=== PATIENT | female | born 1950 | race Caucasian/White ===

== ENCOUNTER 2017-08-20 10:45 | Emergency (ER) | payer OTHER ==
[~2017-08-20] VITALS: Ht 162.6 cm; Wt 87.1 kg
[~2017-08-20 10:45] MED LIST: ATV/1 PO; DICY20TA35 PO
[2017-08-20 10:48] VITALS: TEMP 37.3; Ht 162.6 cm; Wt 87.1 kg
--- NOTE | 2017-08-20 11:12 | DIAGNOSTIC IMAGING REPORT ---
CHEST ONE VIEW PORTABLE CLINICAL HISTORY: EVALUATE WEAKNESS dyspnea COMPARISON STUDY: 08/28/2016 FINDINGS: The bones soft tissues and hemidiaphragms are normal. The cardiomediastinal silhouette is normal. The lungs are clear. The pulmonary vasculature is normal. IMPRESSION: Negative chest. The above report was generated using voice recognition software. It may contain grammatical, syntax or spelling errors. Electronically signed by: Nikolas Richter M.D. 08/20/2017 11:11 AM Dictated Date/Time: 08/20/2017 11:11 AM
[2017-08-20 11:32] VITALS: O2SAT 95
[2017-08-20 11:37] LABS: BASO % 0.8 %; BASO ABS # 0.06 K/uL (0-0.2); COMPLETE YES; EOS % 2.8 %; HEMATOCRIT 45.5 % (37-47); IG% 0.3 %; LYMPH % 40.6 %; LYMPH ABS # 3.01 K/uL (1.2-3.4); MEAN CELL VOLUME 97.6 fL (80-100); MEAN CORPUSCULAR HEMOGLOBIN 34.5 pg (25-34); MEAN CORPUSCULAR HGB CONC 35.4 g/dl (32-36); MEAN PLATELET VOLUME 10.9 fL (7.4-10.4); MONO % 8.5 %; PLATELET COUNT 201 K/uL (130-400); RED BLOOD COUNT 4.66 M/uL (4.2-5.4); WHITE BLOOD COUNT 7.41 K/uL (4.8-10.8)
[2017-08-20] MEDS ORDERED: GABA-113 PO (11:47)
[2017-08-20] MEDS ORDERED: SODIUM CHLORIDE 0.9% 500ML 500 ML IV STA (11:53)
[2017-08-20] MEDS ORDERED: SODIUM CHLORIDE 0.9% 1000ML 1,000 ML IV STA (11:53)
[2017-08-20] MEDS ORDERED: HYDROmorphone INJ 0.5 MG/0.5 ML SYR IV STA (11:53)
[2017-08-20 12:06] LABS: ALT/SGPT 112 U/L (12-78); BLOOD UREA NITROGEN 13 mg/dl (7-18); BUN/CREATININE RATIO 18.7 (10-20); CALCIUM 9.3 mg/dl (8.5-10.1); CARBON DIOXIDE 22 mmol/L (21-32); CHLORIDE 107 mmol/L (98-107); GLUCOSE 119 mg/dl (70-99); SODIUM 138 mmol/L (136-145)
[2017-08-20 12:16] LABS: ALKALINE PHOSPHATASE 270 U/L (45-117)
--- NOTE | 2017-08-20 12:36 | DIAGNOSTIC IMAGING REPORT ---
CT OF THE CERVICAL SPINE CLINICAL HISTORY: Neck pain status post trauma COMPARISON STUDY: 08/28/2016 CT DOSE: 501.88 mGycm TECHNIQUE: CT scan of the cervical spine was performed from the skull base to the thoracic inlet. Images are reviewed in the axial, sagittal, and coronal planes. IV contrast was not administered for this examination. A dose lowering technique was utilized adhering to the principles of ALARA. FINDINGS: The visualized portions of the lung apices reveal no evidence of pneumothorax. The prevertebral soft tissues are normal. No fractures or subluxations are visualized. There are multilevel degenerative changes. There is a reversal of the normal cervical lordosis. IMPRESSION: 1. No evidence of acute fracture or traumatic subluxation 2. Multilevel degenerative change with reversal of the normal cervical lordosis Electronically signed by: Kevon Meléndez M.D. 08/20/2017 12:34 PM Dictated Date/Time: 08/20/2017 12:32 PM
--- NOTE | 2017-08-20 12:37 | DIAGNOSTIC IMAGING REPORT ---
HEAD WITHOUT CONTRAST (CT) CT DOSE: 821.00 mGycm HISTORY: Trauma syncope, posterior impact TECHNIQUE: Multiaxial CT images of the head were performed without the use of intravenous contrast. A dose lowering technique was utilized adhering to the principles of ALARA. Comparison: 08/28/2016 Findings: The paranasal sinuses and mastoid air cells are clear. The calvarium and skull base are intact. The ventricles and sulci are within normal limits. There is no mass, hematoma, midline shift, or acute infarct. Impression: No acute intracranial abnormality. No change from the prior study. The above report was generated using voice recognition software. It may contain grammatical, syntax or spelling errors. Electronically signed by: Nikolas Richter M.D. 08/20/2017 12:35 PM Dictated Date/Time: 08/20/2017 12:33 PM
--- NOTE | 2017-08-20 12:42 | DIAGNOSTIC IMAGING REPORT ---
LUMBAR SPINE WITHOUT HISTORY: 67 years-old Female fall low back pain acute low back pain status post fall. COMPARISON: CT lumbar spine 03/09/2011 TECHNIQUE: Pole axial CT images of the lumbar spine were obtained without contrast. A dose lowering technique was used consistent with the principals of KYLE. FINDINGS: There is evidence of prior posterior decompression with interbody justino and screw fusion and discectomy at L3-S1. 9 mm anterolisthesis L5 on S1 is new from prior study. The hardware appears intact. Fracture of the left transverse process of L3 is also new from prior study and appears acute to subacute as seen on image 131 of series 2. No sacral fracture identified. Degenerative changes involve the bilateral SI joints. Slight anterior compression of less than 20% involving the T12 vertebral body is also new from prior without associated retropulsion. This appears chronic in nature. The remaining vertebral body heights are generally well maintained with multiple Schmorl's nodes and severe discogenic degeneration. Posterior disc aspect complexes seen at L2-L3 causing moderate central canal narrowing. 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 Colonic diverticulosis noted without diverticulitis. IMPRESSION: 1. Nondisplaced fracture of the left transverse process L3 appears acute to subacute in nature. 2. Slight anterior compression of the T12 vertebral body of less than 20% without associated retropulsion is new from 03/09/2011 study, however appears chronic. No definite acute compression deformity identified. 3. Prior posterior decompression with interbody fusion and discectomy at L4-S1. There is 9 mm anterolisthesis L5 on S1 without evidence of hardware complication. 4. Advanced multilevel discogenic degenerative changes with large posterior disc osteophyte complex at L2-L3 causing moderate central canal narrowing. The above report was generated using voice recognition software. It may contain grammatical, syntax or spelling errors. Electronically signed by: Andrew Raman M.D. 08/20/2017 12:41 PM Dictated Date/Time: 08/20/2017 12:32 PM
[2017-08-20 13:26] LABS: INR 1.1 (0.9-1.1); PARTIAL THROMBOPLASTIN RATIO 1.1; POTASSIUM 4.1 mmol/L (3.5-5.1); PROTHROMBIN TIME (PATIENT) 11.4 SECONDS (9.0-12.0)
[2017-08-20 13:31] LABS: MAGNESIUM 2.2 mg/dl (1.8-2.4)
[2017-08-20 13:55] LABS: MANUAL MICROSCOPIC REQUIRED? NO; REVIEW REQ? NO; URINE APPEARANCE CLEAR (CLEAR); URINE BILIRUBIN NEG (NEG); URINE COLOR YELLOW; URINE NITRITE NEG (NEG); URINE SPECIFIC GRAVITY 1.009 (1.000-1.030); UROBILINOGEN NEG (NEG)
[2017-08-20] MEDS ORDERED: OXYC1TAB3 PO (14:22)
[2017-08-20 14:59] VITALS: BP 154/86; PULSE 86; O2SAT 95
--- NOTE | 2017-08-20 15:50 | EMERGENCY ROOM VISIT NOTE ---
History Report prepared by Vern: Bin Singh Under the Supervision of: Dr. Alexandre Stallings M.D. First contact with patient: 10:53 Chief Complaint: FALL Stated Complaint: FELL History of Present Illness The patient is a 67 year old female who presents to the Emergency Room with complaints of a sudden fall occurring prior to arrival. She currently rates her discomfort as an 8/10 in severity. The patient states that she went to the bathroom, and she started to get dizzy and passed out. She states that she fell and hit her head, and she denies any bleeding. She states that she has had dizzy episodes in the past, though this is the first time that she passed out. The patient additionally states that last week she fell and hit her back and her knee, and she has been having chronic back pain. The patient states that she has a history of panic attacks, during which she has chest heaviness, cough , and shortness of breath. Pt denies headache, fevers, chills, diaphoresis, visual changes, neck pain, chest pain, breathing difficulties, nausea, vomiting , abdominal pain, melena, hematochezia, urinary symptoms, numbness, weakness, lymphadenopathy, rash, or other complaints. Source of History: patient Onset: prior to arrival Position: other (global) Quality: other (fall) Timing: other (sudden) Associated Symptoms: + LOC, + back pain Note: Associated symptoms: Dizziness Review of Systems See HPI for pertinent positives and negatives. A total of ten systems were reviewed and were otherwise negative. Past Medical & Surgical Medical Problems: (1) Anxiety disorder (2) Arthroplasty of knee (3) Back surgery (4) Benign hypertension (5) Depressive disorder (6) Fibromyalgia (7) Gastroesophageal reflux disease (8) Osteoarthritis (9) Pneumonia Social History Problems: (1) Hepatitis C Family History No pertinent family history Social History Smoking Status: Current Every Day Smoker Alcohol Use: occasionally Marital Status: Housing Status: lives with significant other Occupation Status: unemployed Current/Historical Medications Scheduled Gabapentin (Neurontin), 300 MG PO QAM Scheduled PRN Oxycodone Ir (Roxicodone Ir), 1-2 TAB PO Q4H PRN for Pain Allergies Coded Allergies: Rofecoxib (Verified Allergy, Intermediate, HIVES, 08/20/17) Aspirin (Verified Adverse Reaction, Mild, AGITATED AND SWEATY, 08/20/17) Celecoxib (Verified Adverse Reaction, Mild, HEAD PAIN, 08/20/17) Physical Exam Vital Signs Date Time Temp Pulse Resp B/P (MAP) Pulse Ox O2 Delivery O2 Flow Rate FiO2 08/20/17 14:59 86 18 154/86 95 08/20/17 13:08 68 18 171/77 97 Room Air 08/20/17 11:36 88 08/20/17 11:32 95 Room Air 08/20/17 10:48 37.3 105 20 159/48 98 Room Air Physical Exam GENERAL: Awake, alert, uncomfortable-appearing, in no distress HENT: Normocephalic, atraumatic. Oropharynx unremarkable. EYES: Normal conjunctiva. Sclera non-icteric. NECK: Supple. No nuchal rigidity. FROM. No JVD. RESPIRATORY: Clear to auscultation. CARDIAC: Regular rate, normal rhythm. Extremities warm and well perfused. Pulses equal. ABDOMEN: Soft, non-distended. No tenderness to palpation. No rebound or guarding. No masses. RECTAL: Deferred. MUSCULOSKELETAL: Chest examination reveals no tenderness. The back is symmetrical on inspection without obvious abnormality. There is no CVA tenderness to palpation. No joint edema. LOWER EXTREMITIES: Atraumatic. Calves are equal size bilaterally and non- tender. No edema. No discoloration. NEURO: Normal sensorium. No sensory or motor deficits noted. SKIN: No rash or jaundice noted. Medical Decision & Procedures ER Provider Diagnostic Interpretation: Radiology results as stated below per my review and radiologist interpretation: CHEST ONE VIEW PORTABLE CLINICAL HISTORY: EVALUATE WEAKNESS dyspnea COMPARISON STUDY: 08/28/2016 FINDINGS: The bones soft tissues and hemidiaphragms are normal. The cardiomediastinal silhouette is normal. The lungs are clear. The pulmonary vasculature is normal. IMPRESSION: Negative chest. The above report was generated using voice recognition software. It may contain grammatical, syntax or spelling errors. Electronically signed by: Nikolas Richter M.D. 08/20/2017 11:11 AM Dictated Date/Time: 08/20/2017 11:11 AM HEAD WITHOUT CONTRAST (CT) CT DOSE: 821.00 mGycm HISTORY: Trauma syncope, posterior impact TECHNIQUE: Multiaxial CT images of the head were performed without the use of intravenous contrast. A dose lowering technique was utilized adhering to the principles of ALARA. Comparison: 08/28/2016 Findings: The paranasal sinuses and mastoid air cells are clear. The calvarium and skull base are intact. The ventricles and sulci are within normal limits. There is no mass, hematoma, midline shift, or acute infarct. Impression: No acute intracranial abnormality. No change from the prior study. The above report was generated using voice recognition software. It may contain grammatical, syntax or spelling errors. Electronically signed by: Nikolas Richter M.D. 08/20/2017 12:35 PM Dictated Date/Time: 08/20/2017 12:[address] OF THE CERVICAL SPINE CLINICAL HISTORY: Neck pain status post trauma COMPARISON STUDY: 08/28/2016 CT DOSE: 501.88 mGycm TECHNIQUE: CT scan of the cervical spine was performed from the skull base to the thoracic inlet. Images are reviewed in the axial, sagittal, and coronal planes. IV contrast was not administered for this examination. A dose lowering technique was utilized adhering to the principles of ALARA. FINDINGS: The visualized portions of the lung apices reveal no evidence of pneumothorax. The prevertebral soft tissues are normal. No fractures or subluxations are visualized. There are multilevel degenerative changes. There is a reversal of the normal cervical lordosis. IMPRESSION: 1. No evidence of acute fracture or traumatic subluxation 2. Multilevel degenerative change with reversal of the normal cervical lordosis Electronically signed by: Kevon Meléndez M.D. 08/20/2017 12:34 PM Dictated Date/Time: 08/20/2017 12:32 PM LUMBAR SPINE WITHOUT HISTORY: 67 years-old Female fall low back pain acute low back pain status post fall. COMPARISON: CT lumbar spine 03/09/2011 TECHNIQUE: Pole axial CT images of the lumbar spine were obtained without contrast. A dose lowering technique was used consistent with the principals of ALARA. FINDINGS: There is evidence of prior posterior decompression with interbody justino and screw fusion and discectomy at L3-S1. 9 mm anterolisthesis L5 on S1 is new from prior study. The hardware appears intact. Fracture of the left transverse process of L3 is also new from prior study and appears acute to subacute as seen on image 131 of series 2. No sacral fracture identified. Degenerative changes involve the bilateral SI joints. Slight anterior compression of less than 20% involving the T12 vertebral body is also new from prior without associated retropulsion. This appears chronic in nature. The remaining vertebral body heights are generally well maintained with multiple Schmorl's nodes and severe discogenic degeneration. Posterior disc aspect complexes seen at L2-L3 causing moderate central canal narrowing. 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 Colonic diverticulosis noted without diverticulitis. IMPRESSION: 1. Nondisplaced fracture of the left transverse process L3 appears acute to subacute in nature. 2. Slight anterior compression of the T12 vertebral body of less than 20% without associated retropulsion is new from 03/09/2011 study, however appears chronic. No definite acute compression deformity identified. 3. Prior posterior decompression with interbody fusion and discectomy at L4-S1. There is 9 mm anterolisthesis L5 on S1 without evidence of hardware complication. 4. Advanced multilevel discogenic degenerative changes with large posterior disc osteophyte complex at L2-L3 causing moderate central canal narrowing. The above report was generated using voice recognition software. It may contain grammatical, syntax or spelling errors. Electronically signed by: Andrew Raman M.D. 08/20/2017 12:41 PM Dictated Date/Time: 08/20/2017 12:32 PM Laboratory Results 08/20/17 11:15 Red Blood Count 4.66, Mean Corpuscular Volume 97.6, Mean Corpuscular Hemoglobin 34.5, Mean Corpuscular Hemoglobin Concent 35.4, Mean Platelet Volume 10.9, Neutrophils (%) (Auto) 47.0, Lymphocytes (%) (Auto) 40.6, Monocytes (%) (Auto) 8.5, Eosinophils (%) (Auto) 2.8, Basophils (%) (Auto) 0.8, Neutrophils # (Auto) 3.48, Lymphocytes # (Auto) 3.01, Monocytes # (Auto) 0.63, Eosinophils # (Auto) 0.21, Basophils # (Auto) 0.06 08/20/17 11:15 08/20/17 12:58 Test 08/20/17 11:15 08/20/17 12:58 08/20/17 13:28 White Blood Count 7.41 K/uL (4.8-10.8) Red Blood Count 4.66 M/uL (4.2-5.4) Hemoglobin 16.1 g/dL (12.0-16.0) Hematocrit 45.5 % (37-47) Mean Corpuscular Volume 97.6 fL (80-100) Mean Corpuscular Hemoglobin 34.5 pg (25-34) Mean Corpuscular Hemoglobin Concent 35.4 g/dl (32-36) Platelet Count 201 K/uL (130-400) Mean Platelet Volume 10.9 fL (7.4-10.4) Neutrophils (%) (Auto) 47.0 % Lymphocytes (%) (Auto) 40.6 % Monocytes (%) (Auto) 8.5 % Eosinophils (%) (Auto) 2.8 % Basophils (%) (Auto) 0.8 % Neutrophils # (Auto) 3.48 K/uL (1.4-6.5) Lymphocytes # (Auto) 3.01 K/uL (1.2-3.4) Monocytes # (Auto) 0.63 K/uL (0.11-0.59) Eosinophils # (Auto) 0.21 K/uL (0-0.5) Basophils # (Auto) 0.06 K/uL (0-0.2) RDW Standard Deviation 46.0 fL (36.4-46.3) RDW Coefficient of Variation 13.1 % (11.5-14.5) Immature Granulocyte % (Auto) 0.3 % Immature Granulocyte # (Auto) 0.02 K/uL (0.00-0.02) Anion Gap 9.0 mmol/L (3-11) Est Creatinine Clear Calc Drug Dose 83.3 ml/min Estimated GFR () 103.9 Estimated GFR (Non- 89.7 BUN/Creatinine Ratio 18.7 (10-20) Calcium Level 9.3 mg/dl (8.5-10.1) Total Bilirubin 0.7 mg/dl (0.2-1) Alanine Aminotransferase (ALT/SGPT) 112 U/L (12-78) Alkaline Phosphatase 270 U/L (45-117) Creatine Kinase MB 0.7 ng/ml (0.5-3.6) Creatine Kinase MB Ratio (0-3.0) Troponin I < 0.015 ng/ml (0-0.045) Total Protein 8.2 gm/dl (6.4-8.2) Albumin 3.5 gm/dl (3.4-5.0) Lipase 128 U/L (73-393) Thyroid Stimulating Hormone (TSH) 1.370 uIu/ml (0.300-4.500) Prothrombin Time 11.4 SECONDS (9.0-12.0) Prothromb Time International Ratio 1.1 (0.9-1.1) Activated Partial Thromboplast Time 27.5 SECONDS (21.0-31.0) Partial Thromboplastin Ratio 1.1 Magnesium Level 2.2 mg/dl (1.8-2.4) Direct Bilirubin 0.3 mg/dl (0-0.2) Aspartate Amino Transf (AST/SGOT) 88 U/L (15-37) Total Creatine Kinase 43 U/L (26-192) Urine Color YELLOW Urine Appearance CLEAR (CLEAR) Urine pH 6.0 (4.5-7.5) Urine Specific [place] 1.009 (1.000-1.030) Urine Protein NEG (NEG) Urine Glucose (UA) NEG (NEG) Urine Ketones NEG (NEG) Urine Occult Blood NEG (NEG) Urine Nitrite NEG (NEG) Urine Bilirubin NEG (NEG) Urine Urobilinogen NEG (NEG) Urine Leukocyte Esterase TRACE (NEG) Urine WBC (Auto) 1-5 /hpf (0-5) Urine RBC (Auto) 0-4 /hpf (0-4) Urine Hyaline Casts (Auto) 0 /lpf (0-5) Urine Epithelial Cells (Auto) 10-20 /lpf (0-5) Urine Bacteria (Auto) NEG (NEG) Laboratory results reviewed by me Medications Administered Medications (Trade) Dose Ordered Sig/Annel Route Start Time Stop Time Status Last Admin Dose Admin Hydromorphone HCl (Dilaudid Inj) 0.5 mg NOW STAT IV 08/20/17 11:53 08/20/17 11:55 DC 08/20/17 12:06 0.5 MG Sodium Chloride 500 ml @ 999 mls/hr Q31M STAT IV 08/20/17 11:53 08/20/17 12:23 DC 08/20/17 12:05 999 MLS/HR Sodium Chloride 1,000 ml @ 125 mls/hr Q8H STAT IV 08/20/17 11:53 08/20/17 15:16 DC 08/20/17 13:26 125 MLS/HR ECG Indication: back/shoulder pain, other (fall) Rate (beats per minute): 91 Rhythm: normal sinus Findings: no acute ischemic change, no ectopy, other (normal intervals) ED Course 1144: The patient was evaluated in room C7. A complete history and physical exam was performed. 1153: Sodium Chloride 1000 ml @ 125 mls/hr IV, Sodium Chloride 500 ml @ 999 mls/ hr IV, Dilaudid Inj 0.5mg IV 1337: I reevaluated the patient, and she was doing okay. 1431: I discussed the patient's case with Mikey An PA-C, Orthopedics, and he will follow up with the patient in the office tomorrow. 1433: I reevaluated the patient. Discussed results and discharge instructions: She verbalized understanding and agreement and will follow up. The patient is ready for discharge. Medical Decision Triage Nursing notes reviewed. The patient's presentation and history were concerning for syncope, back and neck pain. Etiologies such as vasovagal event, infection, hypoglycemia, electrolyte abnormalities, cardiac sources, intracerebral event, toxicologic, neurologic, fracture, musculoskeletal injury, cervical strain, as well as others were entertained. The patient was evaluated. Neurologically she was intact. She had a benign belly. GCS was 15. The patient had some neck discomfort. She underwent CT imaging of her head, neck, and lumbar spine. She does not have a transverse process fracture of the lumbar spine. Questionable subacute to old T12 compression. The patient's blood work was unremarkable. LFTs actually improved. She was treated with hydration and pain medication as above and then much better. She was feeling well. I discussed conservative management and following up with her spine surgeon. The patient felt comfortable with this. She will also follow-up with her primary physician. I did notify her spine team. I spoke with Bin An PA-C, associate of Dr. Silva. The patient will follow up in the office. The patient notes that she's been under a lot of stress and has had issues in the past with lightheadedness and seemed to be, especially when she changes positions. states that she has been stressed recently. She feels much better at this point in time. No further symptoms. By the evaluation outlined above other emergent etiologies such as those listed in the differential, as well as others, were deemed relatively unlikely. The patient and were educated about the findings as listed above. All questions were answered and they were pleased with the treatment. Return instructions were outlined and the patient was discharged in stable condition. The patient was referred to her spine surgeon and PCP for follow-up for a recheck of the current condition. [place] Drug Monitoring Program Search Results: patient reviewed within database, no issues identified Medication Reconcilliation Current Medication List: was personally reviewed by me Blood Pressure Screening Patient's blood pressure: Elevated blood pressure Blood pressure disposition: Referred to PCP Consults Time Called: 1346 Consulting Physician: Mikey An PA-C, Orthopedics Returned Call: [phone] I discussed the patient's case with Mikey An PA-C, Orthopedics, and he will follow up with the patient in the office tomorrow. Impression Primary Impression: Syncope Additional Impressions: Closed head injury Lumbar transverse process fracture Scribe Attestation The scribe's documentation has been prepared under my direction and personally reviewed by me in its entirety. I confirm that the note above accurately reflects all work, treatment, procedures, and medical decision making performed by me. Departure Information Dispostion Home / Self-Care Prescriptions Oxycodone Ir (Roxicodone Ir) 5 Mg Tab 1-2 TAB PO Q4H Y for Pain, #15 TAB Prov: Alexandre Stallings MD 08/20/17 Referrals RV. Garcia MD (PCP) Forms HOME CARE DOCUMENTATION FORM, IMPORTANT VISIT INFORMATION Patient Instructions My [facility] Additional Instructions DO NOT drive, drink alcohol, operate machinery, or perform dangerous activities today. You were given medications in the ER that can affect your ability to safely function or operate a vehicle. Oxycodone (OxyIR) 5mg: Take 1-2 pills every four hours for breakthrough pain. Avoid alcohol, operating machinery or dangerous equipment, working on ladders or roofs, DRIVING, or situations where being under the influence may be dangerous. It is recommended to use an [id number] stool softener such as Colace, 100mg twice daily while taking this medication to avoid constipation. Rest and avoid heavy lifting until your symptoms resolve and then gradually return to full activity. A good rule of thumb is if it hurts your back to perform a certain activity, then it should be avoided until you are healthy again. A heating pad, warm compresses, or a hot shower may help with tight muscles and can be done several times a day as needed. Continue current medications. Return to the ER immediately for any passing out, numbness, tingling, severe pain, loss of control of your bowels or bladder, inability to walk, or as needed. Follow-up with Dr. Silva's office. Call them tomorrow to set an appointment. Follow up with your primary care physician within 2-3 days for a recheck of your current condition. Problem Qualifiers
== END 2017-08-20 15:01 | disposition home or self-care (01) ==
LOC: C.EDB 10:46 → C.EDC 15:01
DX: R55 Syncope and collapse (principal); S09.90XA Unspecified injury of head, initial encounter; S32.039A Unspecified fracture of third lumbar vertebra, initial encounter for closed fracture; W01.10XA Fall on same level from slipping, tripping and stumbling with subsequent striking against unspecified object, initial encounter; Y92.002 Bathroom of unspecified non-institutional (private) residence as the place of occurrence of the external cause; G89.29 Other chronic pain; M54.9 Dorsalgia, unspecified; F41.0 Panic disorder [episodic paroxysmal anxiety]; Z96.659 Presence of unspecified artificial knee joint; I10 Essential (primary) hypertension; F32.9 Major depressive disorder, single episode, unspecified; M79.7 Fibromyalgia; M19.90 Unspecified osteoarthritis, unspecified site; Z87.01 Personal history of pneumonia (recurrent); B19.20 Unspecified viral hepatitis C without hepatic coma; F17.210 Nicotine dependence, cigarettes, uncomplicated; Z79.899 Other long term (current) drug therapy

== ENCOUNTER 2017-11-14 11:39 | Inpatient (IN) | payer OTHER ==
[~2017-11-14] VITALS: Ht 160 cm; Wt 86.1 kg
[2017-11-14] MEDS ORDERED: ALBUT/IPRATROP 3MG/0.5MG NEB 3 ML VIAL INH STA (12:04)
[2017-11-14] MEDS ORDERED: MoRPHine SULFATE 4 MG/ML 1 ML CARP\\VIAL IV STA (12:07)
[2017-11-14] MEDS ORDERED: IBUP-1450 PO (12:27)
--- NOTE | 2017-11-14 12:36 | EMERGENCY ROOM VISIT NOTE ---
History First contact with patient: 11:55 Chief Complaint: ILLNESS Stated Complaint: FLU LIKE SX History of Present Illness The patient is a 67 year old female who presents to the Emergency Room with complaints of flu-like illness, with SOB/wheezing, dry nonproductive cough, chest tightness, and overall feeling ill for the past week or more. She was being seen at pain clinic today for a possible epidural injection for her chronic back pain, was found to be hypertensive and short of breath, so was sent to the ED for further evaluation. The patient states her back pain is constant and 7/10. Her chest pain is also constant for the past week, in the middle of her chest, she describes this as tightness, does not radiate, nothing makes it better or worse, 5/10. She reports some associated chills, unsure if she has had any fevers. She does note some loose stools off and on over the past week or so as well, denies watery, bloody, or frequent diarrhea. She denies headaches, vision changes, neck pain, dizziness or passing out, falls, abdominal pain, vomiting, urinary symptoms, or rash. Review of Systems A complete 10 point review of systems was reviewed with the patient with pertinent positives and negatives as per history of present illness. All else were negative. Past Medical/Surgical History Medical Problems: (1) Anxiety disorder (2) Arthroplasty of knee (3) Back surgery (4) Benign hypertension (5) Depressive disorder (6) Fibromyalgia (7) Gastroesophageal reflux disease (8) Hypertensive urgency (9) Osteoarthritis (10) Pneumonia Social History Problems: (1) Hepatitis C Family History No pertinent family history Social History Smoking Status: Current Every Day Smoker Alcohol Use: occasionally Marital Status: Housing Status: lives with significant other Occupation Status: unemployed Current/Historical Medications Scheduled PRN Ibuprofen (Motrin), 600 MG PO Q6H PRN for Pain Allergies Reviewed in chart Physical Exam Vital Signs Date Time Temp Pulse Resp B/P (MAP) Pulse Ox O2 Delivery O2 Flow Rate FiO2 11/14/17 14:29 83 192/91 92 Room Air 11/14/17 12:57 85 19 223/108 92 Room Air 11/14/17 12:27 95 Room Air 11/14/17 12:26 81 11/14/17 11:56 95 Room Air 11/14/17 11:54 36.5 84 23 186/93 95 Room Air Physical Exam CONSTITUTIONAL: Pleasant and cooperative. Speaking in full sentences without distress. HEENT: Normocephalic, atraumatic. Pupils equal, round and reactive to light, EOMI. TMs normal. Pharynx normal. NECK: Supple, full active range of motion without discomfort. RESPIRATORY: Mildly tachypneic, but no use of accessory muscles or labored breathing. Scant expiratory wheezes heard throughout, clearing with cough. Bibasilar fine crackles. No stridor. Equal expansion bilaterally. CARDIOVASCULAR: Regular rate and rhythm with no murmurs, rubs or gallops. Normal peripheral perfusion. No edema. GASTROINTESTINAL: Soft, nontender, nondistended. No palpable masses or HSM. Bowel sounds present in all quadrants. MUSCULOSKELETAL: Full range of motion of all joints without discomfort. INTEGUMENTARY: No rash or other significant dermatologic conditions noted. NEUROLOGIC: Alert and oriented X 4 with normal affect. Cranial nerves II-XII grossly intact. No focal neurologic deficits noted. Normal strength and sensation in all four extremities. Normal speech, normal coordination, finger- nose-finger testing normal. Medical Decision & Procedures ER Provider Diagnostic Interpretation: CHEST 2 VIEWS ROUTINE CLINICAL HISTORY: Respiratory distress. Dyspnea. COMPARISON STUDY: Chest radiograph August 20, 2017. FINDINGS: Lung volumes are normal. No pneumothorax or pleural effusion is present. Minimal left basilar opacity likely reflects atelectasis or epicardial fat pad. Cardiomediastinal silhouette is normal. There is no evidence of pulmonary edema. Lateral view demonstrates an old compression deformity at the thoracolumbar junction. IMPRESSION: No acute cardiopulmonary findings. Laboratory Results 11/14/17 13:00 Red Blood Count 4.53, Mean Corpuscular Volume 98.0, Mean Corpuscular Hemoglobin 33.3, Mean Corpuscular Hemoglobin Concent 34.0, Mean Platelet Volume 10.5, Neutrophils (%) (Auto) 55.6, Lymphocytes (%) (Auto) 31.8, Monocytes (%) (Auto) 9.9, Eosinophils (%) (Auto) 1.8, Basophils (%) (Auto) 0.5, Neutrophils # (Auto) 4.20, Lymphocytes # (Auto) 2.41, Monocytes # (Auto) 0.75, Eosinophils # (Auto) 0.14, Basophils # (Auto) 0.04 11/14/17 13:00 Test 11/14/17 12:20 11/14/17 13:00 11/14/17 13:30 Influenza Type A (RT-PCR) Neg for Influ A (NEG) Influenza Type A Antigen Neg for Influ A (NEG) Influenza Type B Antigen Neg for Influ B (NEG) Influenza Type B (RT-PCR) Neg for Influ B (NEG) White Blood Count 7.57 K/uL (4.8-10.8) Red Blood Count 4.53 M/uL (4.2-5.4) Hemoglobin 15.1 g/dL (12.0-16.0) Hematocrit 44.4 % (37-47) Mean Corpuscular Volume 98.0 fL (80-100) Mean Corpuscular Hemoglobin 33.3 pg (25-34) Mean Corpuscular Hemoglobin Concent 34.0 g/dl (32-36) Platelet Count 159 K/uL (130-400) Mean Platelet Volume 10.5 fL (7.4-10.4) Neutrophils (%) (Auto) 55.6 % Lymphocytes (%) (Auto) 31.8 % Monocytes (%) (Auto) 9.9 % Eosinophils (%) (Auto) 1.8 % Basophils (%) (Auto) 0.5 % Neutrophils # (Auto) 4.20 K/uL (1.4-6.5) Lymphocytes # (Auto) 2.41 K/uL (1.2-3.4) Monocytes # (Auto) 0.75 K/uL (0.11-0.59) Eosinophils # (Auto) 0.14 K/uL (0-0.5) Basophils # (Auto) 0.04 K/uL (0-0.2) RDW Standard Deviation 47.5 fL (36.4-46.3) RDW Coefficient of Variation 13.3 % (11.5-14.5) Immature Granulocyte % (Auto) 0.4 % Immature Granulocyte # (Auto) 0.03 K/uL (0.00-0.02) Anion Gap 4.0 mmol/L (3-11) Est Creatinine Clear Calc Drug Dose 83.6 ml/min Estimated GFR () 105.4 Estimated GFR (Non- 91.0 BUN/Creatinine Ratio 15.7 (10-20) Calcium Level 9.3 mg/dl (8.5-10.1) Total Bilirubin 0.8 mg/dl (0.2-1) Aspartate Amino Transf (AST/SGOT) 158 U/L (15-37) Alanine Aminotransferase (ALT/SGPT) 155 U/L (12-78) Alkaline Phosphatase 230 U/L (45-117) Troponin I < 0.015 ng/ml (0-0.045) Pro-B-Type Natriuretic Peptide 215 pg/ml (0-900) Total Protein 8.4 gm/dl (6.4-8.2) Albumin 3.5 gm/dl (3.4-5.0) Globulin 4.9 gm/dl (2.5-4.0) Albumin/Globulin Ratio 0.7 (0.9-2) Urine Color YELLOW Urine Appearance CLEAR (CLEAR) Urine pH 6.5 (4.5-7.5) Urine Specific [place] 1.018 (1.000-1.030) Urine Protein NEG (NEG) Urine Glucose (UA) NEG (NEG) Urine Ketones TRACE (NEG) Urine Occult Blood NEG (NEG) Urine Nitrite NEG (NEG) Urine Bilirubin NEG (NEG) Urine Urobilinogen NEG (NEG) Urine Leukocyte Esterase SMALL (NEG) Urine WBC (Auto) 1-5 /hpf (0-5) Urine RBC (Auto) 0-4 /hpf (0-4) Urine Hyaline Casts (Auto) 1-5 /lpf (0-5) Urine Epithelial Cells (Auto) >30 /lpf (0-5) Urine Bacteria (Auto) NEG (NEG) Medications Administered Medications (Trade) Dose Ordered Sig/Annel Route Start Time Stop Time Status Last Admin Dose Admin Albuterol/ Ipratropium (Duoneb) 3 ml NOW STAT INH 11/14/17 12:04 11/14/17 12:07 DC 11/14/17 12:29 3 ML Morphine Sulfate (MoRPHine SULFATE INJ) 4 mg NOW STAT IV 11/14/17 12:07 11/14/17 12:09 DC 11/14/17 12:29 4 MG ECG Indication: chest pain, SOB/dyspnea Rate (beats per minute): 77 Rhythm: normal sinus Findings: no acute ischemic change, no ectopy Change: no significant change (when compared to EKG from 08/20/2017) Medical Decision CC: Patient presenting with complaint of flulike symptoms, cough, congestion, shortness of breath, chest tightness Interpretation of Labs: No leukocytosis, no anemia, no significant electrolyte abnormalities, normal renal function, diffuse elevation of liver enzymes ( chronically elevated at baseline). Negative troponin, negative pro-BNP. Differential Diagnosis: Includes, but not limited to viral URI, bronchitis, pneumonia, influenza, pulmonary edema, pleural effusion, ACS, CHF, COPD exacerbation, PE, anxiety, hypertensive urgency/emergency, among others. She Medication Reconciliation: I attest that I have personally reviewed the patient' s current medication list. Vital signs review: I reviewed the patient's vital signs and interpret them as follows: T: Afebrile; BP: Hypertensive; HR: Within normal limits; RR: Tachypneic; Pulse Ox: Within normal limits on room air. Blood pressure screening: The patient was found to have an elevated blood pressure and was referred to the inpatient team for further management and treatment. Summary: Patient was evaluated at bedside, history and physical exam performed. Patient is alert and oriented, no acute distress but appears uncomfortable. She is resting calmly in the stretcher. Patient is noted to be quite hypertensive, she denies any past history of this and does not take any antihypertensive medication. She states her chronic back pain is really bothering her and is requesting something for this, will treat with morphine and reassess BP for improvement. Orders were placed at bedside for labs, UA, DuNeb treatment, morphine for pain, EKG, CXR to evaluate for cardiopulmonary disease. Patient discussed with Dr. Bowles, who agrees with my assessment and plan. Labs reviewed as above, no acute abnormalities. Negative troponin. EKG reviewed and shows normal sinus rhythm with no acute ischemic changes. Chest x-ray reviewed, no evidence of pneumonia or other acute abnormalities. Subsequent reassessment of blood pressure shows increasing hypertension, and the patient continues to complain of chest pain and shortness of breath. Dr. Bowles also evaluated the patient, who describes her chest pain to him as exertional in nature and radiating to the arm. Nitroglycerin ordered for chest pain and management of hypertension, aspirin not given due to allergy. Given the persistent severe hypertension with symptoms of chest pain/SOB, we feel the patient should be admitted for further evaluation. I spoke with the hospitalist service, who agree to evaluate the patient for admission. Patient reassessed multiple times throughout ED stay, her pain and shortness of breath are somewhat improving. She does remain quite hypertensive. The patient and her were updated on plan for admission, they were agreeable to this plan. Patient stable at time of admission. Head Trauma GCS Score: 15 Medication Reconcilliation Current Medication List: was personally reviewed by me Blood Pressure Screening Patient's blood pressure: Elevated blood pressure Impression Primary Impression: Hypertensive urgency Additional Impression: Shortness of breath Departure Information Dispostion Admitted as an inpatient Condition FAIR Referrals RV. Garcia MD (PCP) Patient Instructions My [facility] Health Problem Qualifiers
[2017-11-14 13:24] LABS: BASO % 0.5 %; BASO ABS # 0.04 K/uL (0-0.2); COMPLETE YES; EOS % 1.8 %; HEMATOCRIT 44.4 % (37-47); IG% 0.4 %; LYMPH % 31.8 %; LYMPH ABS # 2.41 K/uL (1.2-3.4); MEAN CORPUSCULAR HEMOGLOBIN 33.3 pg (25-34); MEAN PLATELET VOLUME 10.5 fL (7.4-10.4); MONO % 9.9 %; NEUT % 55.6 %; PLATELET COUNT 159 K/uL (130-400); RED BLOOD COUNT 4.53 M/uL (4.2-5.4); WHITE BLOOD COUNT 7.57 K/uL (4.8-10.8)
--- NOTE | 2017-11-14 13:29 | EMERGENCY ROOM VISIT NOTE ---
ED Visit Note First contact with patient: 11:55 Staff note: I have reviewed the Patients chart and have discussed this case with my PA. I generally agree with the ED note and findings.
[2017-11-14 13:33] LABS: INFLUENZA A PCR Neg for Influ A (NEG); INFLUENZA B PCR Neg for Influ B (NEG)
[2017-11-14 13:44] LABS: ALT/SGPT 155 U/L (12-78); AST/SGOT 158 U/L (15-37); BLOOD UREA NITROGEN 11 mg/dl (7-18); BUN/CREATININE RATIO 15.7 (10-20); CALCIUM 9.3 mg/dl (8.5-10.1); CARBON DIOXIDE 28 mmol/L (21-32); CHLORIDE 102 mmol/L (98-107); CREATININE 0.67 mg/dl (0.60-1.20); GLUCOSE 118 mg/dl (70-99); POTASSIUM 4.2 mmol/L (3.5-5.1); SODIUM 134 mmol/L (136-145)
[2017-11-14 13:49] LABS: ALB/GLOB RATIO 0.7 (0.9-2); ALKALINE PHOSPHATASE 230 U/L (45-117)
[2017-11-14 13:55] LABS: URINE APPEARANCE CLEAR (CLEAR); URINE BILIRUBIN NEG (NEG); URINE COLOR YELLOW; URINE EPITHELIAL CELL AUTO >30 /lpf (0-5); URINE NITRITE NEG (NEG); URINE PH 6.5 (4.5-7.5); URINE SPECIFIC GRAVITY 1.018 (1.000-1.030); UROBILINOGEN NEG (NEG)
--- NOTE | 2017-11-14 14:04 | DIAGNOSTIC IMAGING REPORT ---
CHEST 2 VIEWS ROUTINE CLINICAL HISTORY: Respiratory distress. Dyspnea. COMPARISON STUDY: Chest radiograph August 20, 2017. FINDINGS: Lung volumes are normal. No pneumothorax or pleural effusion is present. Minimal left basilar opacity likely reflects atelectasis or epicardial fat pad. Cardiomediastinal silhouette is normal. There is no evidence of pulmonary edema. Lateral view demonstrates an old compression deformity at the thoracolumbar junction. IMPRESSION: No acute cardiopulmonary findings. Electronically signed by: Murali Prince M.D. 11/14/2017 2:03 PM Dictated Date/Time: 11/14/2017 2:01 PM
[2017-11-14 14:24] LABS: MANUAL MICROSCOPIC REQUIRED? NO; REVIEW REQ? NO
[2017-11-14] MEDS ORDERED: NITROGLYCERIN 0.4 MG SL PER TAB CHARGE SL PRN ×2 (14:45→15:45)
[2017-11-14] MEDS ORDERED: ACETAMINOPHEN 325 MG TAB PO PRN (15:45)
[2017-11-14] MEDS ORDERED: MoRPHine SULFATE 2 MG/ML CARP IV PRN (15:45)
[2017-11-14] MEDS ORDERED: TRAMADOL HCL 50 MG TAB PO PRN (15:45)
[2017-11-14] MEDS ORDERED: HydrALAZINE HCL 20 MG/ML VIAL IV. PRN (15:45)
[2017-11-14] MEDS ORDERED: LORAZEPAM 0.5 MG TAB PO PRN (15:45)
[2017-11-14] MEDS: ALBUT/IPRATROP 3MG/0.5MG NEB 3 ML VIAL INH SCH ×2 (16:00→18:54)
--- NOTE | 2017-11-14 16:18 | History and Physical ---
History & Physical Date & Time of Service: Nov 14, 2017 at 15:17 Chief Complaint: Flu Like Sx Primary Care Physician: RV. Garcia MD History of Present Illness Ms. Pedrzoa presents for hypertensive urgency found while she was at the pain clinic for an epidural. She has been having panic attacks over the past few years and insomnia that has worsened over the last few weeks with her current illness. She also reports years long issues with urinary frequency at night. Over the last few weeks she has had a cough and sob and upper respiratory illness symptoms. She also has generalized pain 7/10. She had a fall after tripping a few years ago and has had increased back pain since that time. She drinks a six pack a day with last drink three weeks ago. She has been running a fever every day for three weeks, 102 F this morning. She also reports her hair is falling out. She has never been on htn medications previously. Pmhx: back pain with back surgeries, asthma (intermittent), current smoker, fibromyalgia Mother had history of uncontrolled htn ROS Constitutional: see HPI Respiratory: cough no sputum. Cardiac: no chest pain, palpitations, edema, orthopnea or lightheadedness GI: having nausea and diarrhea, : no dysuria or hesitancy Extremities: joint pains and myalgias Skin: no rash Other systems reviewed and negative Past Medical/Surgical History Medical Problems: (1) Anxiety disorder Status: Chronic (2) Arthroplasty of knee Status: Resolved (3) Back surgery Status: Resolved (4) Benign hypertension Status: Chronic (5) Depressive disorder Status: Chronic (6) Fibromyalgia Status: Chronic (7) Gastroesophageal reflux disease Status: Chronic (8) Osteoarthritis Status: Chronic (9) Pneumonia Status: Resolved Social History Problems: (1) Hepatitis C Status: Resolved Family History No pertinent family history Social History Smoking Status: Current Every Day Smoker Alcohol Use: beer six pack per day. Drug Use: marijuana (about once per week) Marital Status: Housing status: lives with significant other Occupational Status: unemployed Immunizations History of Influenza Vaccine: No History of Tetanus Vaccine?: Yes Tetanus Immunization Date: Oct 25, 2001 History of Pneumococcal: No History of Hepatitis B Vaccine: No Multi-Drug Resistant Organisms History of MDRO: No Allergies Coded Allergies: Rofecoxib (Verified Allergy, Intermediate, HIVES, 08/20/17) Aspirin (Verified Adverse Reaction, Mild, AGITATED AND SWEATY, 08/20/17) Celecoxib (Verified Adverse Reaction, Mild, HEAD PAIN, 08/20/17) Home Medications Scheduled PRN Ibuprofen (Motrin), 600 MG PO Q6H PRN for Pain Physical Exam Vital Signs Date Time Temp Pulse Resp B/P (MAP) Pulse Ox O2 Delivery O2 Flow Rate FiO2 11/14/17 14:29 83 192/91 92 Room Air 11/14/17 12:57 85 19 223/108 92 Room Air 11/14/17 12:27 95 Room Air 11/14/17 12:26 81 11/14/17 11:56 95 Room Air 11/14/17 11:54 36.5 84 23 186/93 95 Room Air General: no distress Eyes: normal inspection, PERLL Neck: thyroid nodule to palpation Respiratory: chest non tender, clear to auscultation, expiratory wheezing, no accessory muscle use Cardiac: regular rate and rhythm, no rub or gallop, no murmur, no edema, no jvd GI/: active bowel sounds, no abd pain or tenderness, soft, non distended Extremities: normal range of motion, normal strength, non tender Neuro/Psych: alert and oriented x 3, anxious Skin: normal color, dry Diagnostics Laboratory Results Results Past 24 Hours Test 11/14/17 12:20 11/14/17 13:00 11/14/17 13:30 Range/Units Influenza Type A (RT-PCR) Neg for Influ A NEG Influenza Type A Antigen Neg for Influ A NEG Influenza Type B Antigen Neg for Influ B NEG Influenza Type B (RT-PCR) Neg for Influ B NEG White Blood Count 7.57 4.8-10.8 K/uL Red Blood Count 4.53 4.2-5.4 M/uL Hemoglobin 15.1 12.0-16.0 g/dL Hematocrit 44.4 37-47 % Mean Corpuscular Volume 98.0 80-100 fL Mean Corpuscular Hemoglobin 33.3 25-34 pg Mean Corpuscular Hemoglobin Concent 34.0 32-36 g/dl Platelet Count 159 130-400 K/uL Mean Platelet Volume 10.5 7.4-10.4 fL Neutrophils (%) (Auto) 55.6 % Lymphocytes (%) (Auto) 31.8 % Monocytes (%) (Auto) 9.9 % Eosinophils (%) (Auto) 1.8 % Basophils (%) (Auto) 0.5 % Neutrophils # (Auto) 4.20 1.4-6.5 K/uL Lymphocytes # (Auto) 2.41 1.2-3.4 K/uL Monocytes # (Auto) 0.75 0.11-0.59 K/uL Eosinophils # (Auto) 0.14 0-0.5 K/uL Basophils # (Auto) 0.04 0-0.2 K/uL RDW Standard Deviation 47.5 36.4-46.3 fL RDW Coefficient of Variation 13.3 11.5-14.5 % Immature Granulocyte % (Auto) 0.4 % Immature Granulocyte # (Auto) 0.03 0.00-0.02 K/uL Sodium Level 134 136-145 mmol/L Potassium Level 4.2 3.5-5.1 mmol/L Chloride Level 102 98-107 mmol/L Carbon Dioxide Level 28 21-32 mmol/L Anion Gap 4.0 3-11 mmol/L Blood Urea Nitrogen 11 7-18 mg/dl Creatinine 0.67 0.60-1.20 mg/dl Est Creatinine Clear Calc Drug Dose 83.6 ml/min Estimated GFR () 105.4 Estimated GFR (Non- 91.0 BUN/Creatinine Ratio 15.7 10-20 Random Glucose 118 70-99 mg/dl Calcium Level 9.3 8.5-10.1 mg/dl Total Bilirubin 0.8 0.2-1 mg/dl Aspartate Amino Transf (AST/SGOT) 158 15-37 U/L Alanine Aminotransferase (ALT/SGPT) 155 12-78 U/L Alkaline Phosphatase 230 45-117 U/L Troponin I < 0.015 0-0.045 ng/ml Pro-B-Type Natriuretic Peptide 215 0-900 pg/ml Total Protein 8.4 6.4-8.2 gm/dl Albumin 3.5 3.4-5.0 gm/dl Globulin 4.9 2.5-4.0 gm/dl Albumin/Globulin Ratio 0.7 0.9-2 Urine Color YELLOW Urine Appearance CLEAR CLEAR Urine pH 6.5 4.5-7.5 Urine Specific [place] 1.018 1.000-1.030 Urine Protein NEG NEG Urine Glucose (UA) NEG NEG Urine Ketones TRACE NEG Urine Occult Blood NEG NEG Urine Nitrite NEG NEG Urine Bilirubin NEG NEG Urine Urobilinogen NEG NEG Urine Leukocyte Esterase SMALL NEG Urine WBC (Auto) 1-5 0-5 /hpf Urine RBC (Auto) 0-4 0-4 /hpf Urine Hyaline Casts (Auto) 1-5 0-5 /lpf Urine Epithelial Cells (Auto) >30 0-5 /lpf Urine Bacteria (Auto) NEG NEG Diagnostic Radiology CHEST 2 VIEWS ROUTINE CLINICAL HISTORY: Respiratory distress. Dyspnea. COMPARISON STUDY: Chest radiograph August 20, 2017. FINDINGS: Lung volumes are normal. No pneumothorax or pleural effusion is present. Minimal left basilar opacity likely reflects atelectasis or epicardial fat pad. Cardiomediastinal silhouette is normal. There is no evidence of pulmonary edema. Lateral view demonstrates an old compression deformity at the thoracolumbar junction. IMPRESSION: No acute cardiopulmonary findings. CXR normal Normal EKG Impression Assessment and Plan Ms. Cuellar is a 67 year old woman here for hypertensive urgency HTN urgency - admit tele - prn hydralazine, start hctz 25 mg, prn nitro and morphine if further chest pain - trend troponins Bronchitis vs COPD exacerbation - Augmentin 875 bid - nebs - on room air, O2 per protocol - ESR, CRP ETOH abuse, anxiety - htn - last drink 3 days ago, drinks a six pack a day - elevated LFTs - prn ativan Current smoker - nicotine patch - smoking cessation Thyroid nodule - TSH - Will hold off on imaging for now, will need to follow up outpatient Fibromyalgia/back pain - tramadol, acetaminophen I personally interviewed and examined the patient. I agree with history of present illness and physical exam mentioned above, I also performed my own history taking and examination. Past medical history and review of system has been obtained by myself I reviewed all pertinent labs and studies Reviewed current medications I discussed and formulated of the assessment and plan mentioned above by Mrs. Trejoah Yumiko Please refer to the Summary mentioned below. General Appearance: not in acute distress / obese Eyes: normal Sclerae, extraocular muscle intact ENT: hearing grossly normal Neck: supple Respiratory/Chest: Decreased air entry bilateral , mild respiratory distress, no accessory muscle use, mild wheezes Cardiovascular: regular rate, rhythm, no murmur Abdomen: non tender, soft, no masses, but appears distended Extremities: +2 edema Neurologic/Psychiatric: Awake alert oriented only to place and person moves all extremities sensation intact cranial nerves II-12 appear to be intact Skin: normal color, warm/dry, no rash 82 years old man with underlying dementia presented to the ED with shortness of breath and lower extremity edema Assessment Hypertensive crisis Body aches/back pain/chest tightness Shortness of breath/bronchospasm possible undiagnosed COPD Fibromyalgia and chronic pain syndrome Clinical dependence/last drink was 4 days ago possible withdrawal Tobacco abuse Transaminitis; ALT=AST secondary to possible alcoholic liver disease but you to the atypical ALT/AST other causes of liver disease needs to be ruled out as an outpatient, these refer to primary care physician or GI specialist as an outpatient Plan Admit to telemetry Trend troponin Bronchodilators/steroids Avoid Tylenol for pain control due to the liver damage Obtain lipids and hemoglobin A1c levels to stratify patient's risk factors Patient was started on hydrochlorothiazide for blood pressure Continue home meds DVT prophylaxis Ativan when necessary for anxiety / alcohol withdrawal thiamine and folic acid supplements Akira Motley MD, [facility] Advanced Directives Existing Advance Directive: No Existing Living Will: No Existing Power of Foamite Mixer: No Existing Health Care Proxy: No Resuscitation Status FULL RESUSCITATION VTE Prophylaxis VTE Risk Assessment Done? Y/N: Yes Risk Level: Moderate Given or contraindicated: Enoxaparin (Lovenox)SQ Social Service Consult None Apply
[2017-11-14 16:22] VITALS: Ht 160 cm; Wt 86.1 kg
[2017-11-14 16:31] LABS: C-REACTIVE PROTEIN 0.29 mg/dl (0-0.29); THYROID STIMULATING HORMONE 1.93 uIu/ml (0.300-4.500)
[2017-11-14] MEDS ORDERED: HYDROCHLOROTHIAZIDE 25 MG TAB PO STA (17:00)
[2017-11-14] MEDS ORDERED: LORAZEPAM 2 MG/ML 1 ML VIAL IV PRN (17:00)
[2017-11-14] MEDS ORDERED: METHYLPREDNISOLONE IV 40 MG in SYRINGE 0 ML IV SCH (18:00)
[2017-11-14 18:56] VITALS: PULSE 82; O2SAT 94
[2017-11-14 19:02] VITALS: BP 133/68; PULSE 79; TEMP 36.7; O2SAT 98
[2017-11-14] MEDS: AMOXICILLIN/CLAVULANATE TAB 875 MG TAB PO SCH (20:26)
[2017-11-14] MEDS ORDERED: PNEUMOCOCCAL ADMINISTRATION CHARGE ONE (21:00)
[2017-11-14] MEDS ORDERED: ENOXAPARIN 40 MG/0.4 ML SYR SC SCH (21:00)
[2017-11-14] MEDS ORDERED: INFLUENZA VIRUS QUAD VACCINE 0.5 ML SYR IM. ONE (21:00)
[2017-11-14] MEDS ORDERED: INFLUENZA ADMINISTRATION CHARGE ONE (21:00)
[2017-11-14] MEDS ORDERED: PNEUMOCOCCAL POLYSACCHARIDES 25 MCG/0.5 ML VIAL/SYR IM. ONE (21:00)
[2017-11-14] MEDS ORDERED: NURSING VERBAL MED ORDER ONE (22:15)
[2017-11-14] MEDS ORDERED: DiphenhydrAMINE HCL 50 MG/ML VIAL IV STA (22:20)
[2017-11-14 23:39] VITALS: BP 167/65; PULSE 80; TEMP 37.3; O2SAT 97
[2017-11-15 03:49] VITALS: BP 164/76; PULSE 79; TEMP 36.9; O2SAT 96
[2017-11-15 05:52] LABS: BASO % 0.2 %; BASO ABS # 0.01 K/uL (0-0.2); COMPLETE YES; EOS % 0.2 %; HEMATOCRIT 45.3 % (37-47); IG% 0.2 %; LYMPH % 22.5 %; LYMPH ABS # 1.31 K/uL (1.2-3.4); MEAN CELL VOLUME 97.2 fL (80-100); MEAN CORPUSCULAR HEMOGLOBIN 33.5 pg (25-34); MEAN CORPUSCULAR HGB CONC 34.4 g/dl (32-36); MEAN PLATELET VOLUME 11.2 fL (7.4-10.4); MONO % 1.9 %; PLATELET COUNT 190 K/uL (130-400); RED BLOOD COUNT 4.66 M/uL (4.2-5.4); WHITE BLOOD COUNT 5.83 K/uL (4.8-10.8)
[2017-11-15 06:22] LABS: ALT/SGPT 150 U/L (12-78); AST/SGOT 134 U/L (15-37); BLOOD UREA NITROGEN 10 mg/dl (7-18); BUN/CREATININE RATIO 14.7 (10-20); CALCIUM 9.3 mg/dl (8.5-10.1); CARBON DIOXIDE 25 mmol/L (21-32); CHLORIDE 99 mmol/L (98-107); CREATININE 0.68 mg/dl (0.60-1.20); GLUCOSE 159 mg/dl (70-99); MAGNESIUM 2.3 mg/dl (1.8-2.4); SODIUM 130 mmol/L (136-145)
[2017-11-15 06:27] LABS: ALB/GLOB RATIO 0.7 (0.9-2); ALKALINE PHOSPHATASE 219 U/L (45-117)
[2017-11-15 06:39] LABS: ESTIMATED AVERAGE GLUCOSE 111 mg/dl; HA1C FLAG Normal (Normal)
[2017-11-15 07:06] VITALS: PULSE 97; O2SAT 99
[2017-11-15] MEDS: ALBUT/IPRATROP 3MG/0.5MG NEB 3 ML VIAL INH SCH ×2 (07:06→11:13)
[2017-11-15] MEDS: AMOXICILLIN/CLAVULANATE TAB 875 MG TAB PO SCH (08:05)
--- NOTE | 2017-11-15 08:33 | Clinical Documentation Query ---
CLINICAL DOCUMENTATION QUERY Dr. ADKINS, In your clinical opinion is this patient being managed for: ( ) Hypertensive crisis ( x ) Not Agree-hypertensive urgency ( ) Other explanation of clinical findings (Please Explain) ( ) Unable to determine (Please Define) ( ) Need to Discuss The medical record reflects the following clinical findings, treatment, and risk factors. Clinical Indicators:67 yo female presenting with dyspnea, chest tightness, and hypertension. Initial BP 186/93, rising to 223/108. Trops 0.052/0.018/<0.015. Varying documentation in the clinical record of hypertensive urgency vs hypertensive crisis. Treatment: IV hydralazine, stat HCTZ po, then daily, tele, serial trops. Risk Factors: age, alcohol abuse A hypertensive crisis occurs when blood pressure elevates rapidly and severely enough to potentially cause organ damage. Patients may present with symptoms of acute headache, shortness of breath, epistaxis, or marked anxiety. Immediate evaluation is needed to assess organ function, and determine appropriate treatment. Please clarify and document your clinical opinion in the progress notes and discharge summary. Terms such as "probable", "suspected", "likely", "questionable", "possible", or "still to be ruled out" are acceptable. IF IN AGREEMENT, YOU MUST DOCUMENT ABOVE DIAGNOSTIC STATEMENT IN DAILY PROGRESS NOTES AND DISCHARGE SUMMARY. This document is not part of the patient's record. Thank You, Nga Suresh, RN [phone]
[2017-11-15] MEDS ORDERED: HYDROCHLOROTHIAZIDE 25 MG TAB PO SCH (09:00)
[2017-11-15] MEDS ORDERED: THIAMINE HCL 100 MG TAB PO SCH (09:00)
[2017-11-15] MEDS ORDERED: NICOTINE 14 MG/24 HR TDSY TD SCH (09:00)
[2017-11-15] MEDS ORDERED: MULTI-VITAMIN INFUSION INJ 10 ML, THIAMINE HCL INJ 100 MG, FoLIC ACID INJ 1 MG in SODIU... IV ONE (09:01)
[2017-11-15] MEDS ORDERED: LORAZEPAM 1 MG TAB PO PRN (09:15)
[2017-11-15] MEDS ORDERED: CHLORDIAZEPOXIDE 25 MG CAP PO SCH (09:15)
[2017-11-15] MEDS ORDERED: CHLORDIAZEPOXIDE 25MG 1ST DOSE PO SCH (10:00)
[2017-11-15] MEDS ORDERED: SERTRALINE HCL 50 MG TAB PO ONE (10:50)
[2017-11-15 11:13] VITALS: PULSE 78; O2SAT 97
[2017-11-15 11:45] VITALS: BP 116/49; PULSE 93; TEMP 37; O2SAT 95
[2017-11-15] MEDS ORDERED: ULT50X PO (14:57)
[2017-11-15] MEDS ORDERED: ZLF50 PO (14:57)
[2017-11-15] MEDS ORDERED: HYDR25TA5 PO (14:57)
[2017-11-15] MEDS ORDERED: AMOX1TAB43 PO (14:57)
[2017-11-15] MEDS ORDERED: VNTHFA/IN INH (14:57)
[2017-11-15] MEDS ORDERED: ATV5 PO (14:57)
[2017-11-15] MEDS ORDERED: THM100 PO (14:57)
[2017-11-15] MEDS ORDERED: FLV1 PO (14:57)
--- NOTE | 2017-11-15 15:06 | Discharge Instructions ---
Discharge Instructions Date of Service Nov 15, 2017. Admission Reason for Admission: Hypertensive Urgency Discharge Discharge Diagnosis / Problem: Hypertensive urgency, Anxiety disorder,Acute bronchitis Discharge Goals Goal(s): Improve disease control, Therapeutic intervention Activity Recommendations Activity Limitations: resume your previous activity Exercise/Sports Limitations: none, gradually increase as tolerated Driving or Machine Use: No driving while taking lorazepam or tramadol as can make you drowsy . Instructions / Follow-Up Instructions / Follow-Up You were admitted with significantly elevated blood pressure. You were started on a new medication for blood pressure called HCTZ and should continue this at home. Your blood pressure was much imporved at the time of discharge. You were also started on treatment for possible alcohol withdrawal and anxiety with Zoloft (sertraline) and Ativan (lorazepam). Your bronchitis is being treated with Augmentin and albuterol inhaler as needed. It is very important that you STOP smoking, and NOT DRINK alcohol. Please follow up with your new family doctor as scheduled for you within 1-2 weeks. Current Hospital Diet Patient's current hospital diet: AHA Diet (Heart Healthy) Discharge Diet Recommended Diet: AHA Diet (Heart Healthy) Procedures Procedures Performed: Chest xray Pending Studies Studies pending at discharge: no Laboratory Results Last 24 Hours Test 11/14/17 16:33 11/14/17 19:26 11/15/17 00:29 11/15/17 05:13 Erythrocyte Sedimentation Rate 30 mm/hr Troponin I 0.052 ng/ml 0.018 ng/ml < 0.015 ng/ml White Blood Count 5.83 K/uL Red Blood Count 4.66 M/uL Hemoglobin 15.6 g/dL Hematocrit 45.3 % Mean Corpuscular Volume 97.2 fL Mean Corpuscular Hemoglobin 33.5 pg Mean Corpuscular Hemoglobin Concent 34.4 g/dl Platelet Count 190 K/uL Mean Platelet Volume 11.2 fL Neutrophils (%) (Auto) 75.0 % Lymphocytes (%) (Auto) 22.5 % Monocytes (%) (Auto) 1.9 % Eosinophils (%) (Auto) 0.2 % Basophils (%) (Auto) 0.2 % Neutrophils # (Auto) 4.38 K/uL Lymphocytes # (Auto) 1.31 K/uL Monocytes # (Auto) 0.11 K/uL Eosinophils # (Auto) 0.01 K/uL Basophils # (Auto) 0.01 K/uL RDW Standard Deviation 46.7 fL RDW Coefficient of Variation 13.2 % Immature Granulocyte % (Auto) 0.2 % Immature Granulocyte # (Auto) 0.01 K/uL Sodium Level 130 mmol/L Potassium Level 4.0 mmol/L Chloride Level 99 mmol/L Carbon Dioxide Level 25 mmol/L Anion Gap 6.0 mmol/L Blood Urea Nitrogen 10 mg/dl Creatinine 0.68 mg/dl Est Creatinine Clear Calc Drug Dose 82.4 ml/min Estimated GFR () 104.9 Estimated GFR (Non- 90.5 BUN/Creatinine Ratio 14.7 Random Glucose 159 mg/dl Estimated Average Glucose 111 mg/dl Hemoglobin A1c 5.5 % Calcium Level 9.3 mg/dl Magnesium Level 2.3 mg/dl Total Bilirubin 0.9 mg/dl Aspartate Amino Transf (AST/SGOT) 134 U/L Alanine Aminotransferase (ALT/SGPT) 150 U/L Alkaline Phosphatase 219 U/L Total Protein 8.9 gm/dl Albumin 3.6 gm/dl Globulin 5.3 gm/dl Albumin/Globulin Ratio 0.7 Test 11/15/17 09:26 Vitamin B12 Level 674 pg/mL Folate > 24.00 ng/mL Hemoglobin A1c Test 11/15/17 05:13 Range/Units Estimated Average Glucose 111 mg/dl Hemoglobin A1c 5.5 4.5-5.6 % Medical Emergencies . Who to Call and When: Medical Emergencies: If at any time you feel your situation is an emergency, please call 911 immediately. . Non-Emergent Contact Non-Emergency issues call your: Primary Care Provider Call Non-Emergent contact if: temperature is above 101.5, your pain is not controlled, your pain is worsening, your pain is unusual for you, your pain is concerning you, you have any medication questions you have worsening of your cough or shortness of breath, or for any other acute concerns. . . "Provider Documentation" section prepared by Maria Guadalupe Ray. . VTE Core Measure Inpt VTE Proph given/why not?: Enoxaparin (Lovenox)SQ [place] Drug Monitoring Program Search Results: patient reviewed within database, no issues identified
--- NOTE | 2017-11-15 15:29 | Discharge Summary ---
Discharge Summary Date of Service Nov 15, 2017. Discharge Summary Admission Date: Nov 14, 2017 at 15:46 Discharge Date: Nov 15, 2017 Discharge Disposition: Home Principal Diagnosis: Hypertensive urgency Problems/Secondary Diagnoses: Acute bronchitis Current Smoker Alcohol abuse/dependence Elevated transaminases H/o Hepatitis C-treated Demand ischemia/elevated troponin Generalized anxiety disorder Acute on chronic lower back pain Hyponatremia Immunizations: Have You Had Influenza Vaccine: No History of Tetanus Vaccine?: Yes Tetanus Immunization Date: Oct 25, 2001 History of Pneumococcal: No History of Hepatitis B Vaccine: No Procedures: Chest xray: CHEST 2 VIEWS ROUTINE CLINICAL HISTORY: Respiratory distress. Dyspnea. COMPARISON STUDY: Chest radiograph August 20, 2017. FINDINGS: Lung volumes are normal. No pneumothorax or pleural effusion is present. Minimal left basilar opacity likely reflects atelectasis or epicardial fat pad. Cardiomediastinal silhouette is normal. There is no evidence of pulmonary edema. Lateral view demonstrates an old compression deformity at the thoracolumbar junction. IMPRESSION: No acute cardiopulmonary findings. Consultations: None Medication Reconciliation New Medications: Albuterol Hfa (Ventolin Hfa) 200 Puffs/29832 Mcg Aers 2-4 PUFFS INH Q6H PRN for SOB/Wheezing, #1 INHALER Amoxicillin & Pot Clavulanate (Amoxicillin/Clavulanate P) 1 Tab Tab 875 MG PO BIDM for 6 Days, #12 TAB Folic Acid (Folic Acid) 1 Mg Tab 1 MG PO QAM for 30 Days, #30 TAB Hydrochlorothiazide (Hydrochlorothiazide) 25 Mg Tab 25 MG PO QAM for 30 Days, #30 TAB Lorazepam (Lorazepam) 0.5 Mg Tab 0.5 MG PO Q6H PRN for Anxiety, #15 TAB Sertraline HCl (Sertraline HCl) 50 Mg Tab 50 MG PO QAM for 30 Days, #30 TAB Thiamine HCl (Vitamin B-1) 100 Mg Tab 100 MG PO QAM for 30 Days, #30 TAB Tramadol HCl (Tramadol HCl) 50 Mg Tab 50 MG PO Q4H PRN for Pain for 3 Days, #12 TAB Discontinued Medications: Ibuprofen (Motrin) 600 Mg Tab 600 MG PO Q6H PRN for Pain, TAB TAKE WITH FOOD Discharge Exam Pt feeling much improved since admission. Cough is improved, not requiring O2, has received po ativan and this is helping her anxiety. BP much improved with ativan and with starting HCTZ. Has acute on chronic LBP and was to have steroid injections the day of admission which was aborted due to a fever. Is bringing up some sputum that is yellow, no hemoptysis. Denies SOB. Says that her anxiety is through the roof and this is why she drinks 6 beers almost daily. Is committed to quitting smoking now too. Is requesting to start on something to help her anxiety upon discharge, but does not want to have to go to a Psychiatrist as she has no car and has to get around by public transportation. Would like a new PCP who is closer to her home in [place]. Review of Systems: Constitutional: No fever, No chills Eyes: No problem reported ENT: No sore throat Respiratory: + cough, + sputum, + wheezing, No shortness of breath Cardiovascular: No chest pain Abdomen: No problem reported Musculoskeletal: + muscle pain (leg cramps with walking in hamstrings that resolve with rest; claudication), + problem reported (lower back pain radiating to bilateral hips) Genitourinary - Female: No problem reported Neurologic: No problem reported Psychiatric: + anxiety Endocrine: No problem reported Hematologic / Lymphatic: No problem reported Integumentary: No problem reported Physical Exam: General Appearance: WD/WN, no apparent distress Eyes: normal inspection, sclerae normal ENT: hearing grossly normal, pharynx normal Neck: trachea midline Respiratory/Chest: no respiratory distress, no accessory muscle use, + wheezing (faint exp wheezes in upper and middle lung pickett) Cardiovascular: regular rate, rhythm, no edema, no murmur Abdomen / GI: normal bowel sounds, non tender, soft, no organomegaly Extremities: no calf tenderness, normal capillary refill, no pedal edema, normal range of motion Neurologic/Psychiatric: alert, oriented x 3, + pertinent finding (anxious, full affect) Skin: normal color, warm/dry, no rash Hospital Course Ms. Cuellar is a 67 year old woman with a h/o chronic lower back pain, alcohol abuse/dependence, and smoking, here with hypertensive urgency. Hypertensive urgency/Demand ischemia-BP 223/108 on admission, came down with administration of IV hydralazine, HCTZ, and ativan. Secondary to likely underlying HTN,possible EtOH withdrawal (had not had a drink in 3 days), and severe anxiety, along with acute on chronic lower back pain. Troponin very mildly elevated at 0.052/0.018/<0.015, ECG normal, likely from strain of hypertensive urgency. No chest pain. - admitted to telemetry, no events on tele - continue HCTZ 25mg po daily on discharge -treatment for anxiety and EtOH withdrawal as below Acute Bronchitis/Current smoker-increased sputum production and worsened cough x 1 week on chronic cough. May have COPD. Not hypoxic. CXR with some possibly atelectasis, no PNA -counseled on smoking cessation -continue nicotine patch on discharge -was given one dose IV SOlu Medrol but developed hives and rash-discontinued and will not give steroid burst - finish out course of Augmentin 875 bid x 1 week for bronchitis - albuterol HFA prn prescribed -needs formal PFTs as outpt ETOH abuse/dependence, Generalized anxiety disorder-drinks 6 beers every other day, drinks when feels heart racing and this makes heart stop racing-suspect withdrawal/dependence. - last drink 3 days prior to admission, suspect some degree of elevated BP due to withdrawal which improved after ativan -start Zoloft 50mg po daily, Ativan 0.5mg po q6h prn panic attacks -f/u PCP closely -would benefit from Counseling, but has great difficulty with transportation as does not have a car, so wishes for PCP to manage her anxiety Elevated transaminases/H/o Hep C/Fatty liver-US 2015 shows fatty liver, Hep C treated and cured in 2000 -advised EtOH abstinence, weight loss -follow LFTs as outpt Thyroid nodule - TSH normal - Will hold off on imaging for now, will need to follow up outpatient Fibromyalgia/back pain - tramadol, acetaminophen -dc NSAIDs due to HTN -f/u with Pain Management Discharged to home in stable condition Total Time Spent: Greater than 30 minutes This includes examination of the patient, discharge planning, medication reconciliation, and communication with other providers. Discharge Instructions Please refer to the electronic Patient Visit Report (Discharge Instructions) for additional information. Follow-Up PCP within 1-2 weeks Additional Copies To Marcelo Edward M.D.; Upendra. Pardo M.D.
[2017-11-15] MEDS ORDERED: NURSING VERBAL MED ORDER ONE (15:30)
[2017-11-15 15:48] VITALS: BP 116/49; PULSE 93; TEMP 37; O2SAT 95
[2017-11-16] MEDS ORDERED: SERTRALINE HCL 50 MG TAB PO SCH (09:00)
[2017-11-16] MEDS ORDERED: CHLORDIAZEPOXIDE 25MG Q8H DOSE PO SCH (14:00)
[2017-11-17] MEDS ORDERED: CHLORDIAZEPOXIDE 10MG Q8H DOSE PO SCH (14:00)
[2017-11-18] MEDS ORDERED: CHLORDIAZEPOXIDE 5MG Q12H DOSE PO SCH (18:00)
== END 2017-11-15 17:37 | disposition home or self-care (01) | DRG 191 ==
LOC: EDBD 11:39 → C.EDC 11:40 → C.2E 15:46 → ENRESERV 16:33
PROVIDERS: ADMIT Internal Medicine; ATTEND Family Medicine
DX: J44.0 Chronic obstructive pulmonary disease with (acute) lower respiratory infection (principal); I24.8 Other forms of acute ischemic heart disease; I16.0 Hypertensive urgency; J20.9 Acute bronchitis, unspecified; K21.9 Gastro-esophageal reflux disease without esophagitis; F10.10 Alcohol abuse, uncomplicated; M79.7 Fibromyalgia; F41.1 Generalized anxiety disorder; F17.200 Nicotine dependence, unspecified, uncomplicated

== ENCOUNTER 2019-04-26 01:43 | Inpatient (IN) ==
--- OUTSIDE RECORDS SUMMARY | 2019-04-26 01:49 | External Medical Summary | Continuity of Care Document ---
:1950 Author Name Nisreen Bautista, Provider Address Unavailable Unavailable , Care Team Providers Name Role Phone Marcelo Edward [email or web address], [email or web address] DAV EDWARD M.D., Donita Unavailable Unavailable Unavailable Unavailable Unavailable Problems Overactive bladder (596.51) (N32.81) Post-traumatic headache (339.20) (G44.309) Headache (784.0) (R51) Dizziness (780.4) (R42) Spinal stenosis (724.00) (M48.00) Acute bronchitis (466.0) (J20.9) HCV infection (070.70) (B19.20) Endometrial hyperplasia (621.30) (N85.00) Chest tightness or pressure (786.59) (R07.89) Nicotine dependence (305.1) (F17.200) Flu vaccine need (V04.81) (Z23) Cervical cancer screening (V76.2) (Z12.4) Abdominal cramping (789.00) (R10.9) Elevated liver enzymes (790.5) (R74.8) Anxiety (300.00) (F41.9) Colon polyp (211.3) (K63.5) Dysuria (788.1) (R30.0) Nocturia (788.43) (R35.1) Current tobacco use (305.1) (Z72.0) Endometriosis (617.9) (N80.9) Wheezing (786.07) (R06.2) Hypertension (401.9) (I10) RUQ abdominal pain (789.01) (R10.11) Dysfunction of eustachian tube (381.81) (H69.80) Depression (311) (F32.9) Breast cancer screening (V76.10) (Z12.31) Allergies and Adverse Reactions Aspirin TABS (Adverse Event) Reaction: H polly, Itching CeleBREX CAPS (Allergy) Reaction: Hypert ension Medications Gabapentin 300 MG Oral Capsule; take 2 capsules by yon th three times a day Lily Edward III Start: 13-Jan-2019 Quantity: 180 Refills: 3 hydroCHLOROthiazide 25 MG Oral Tablet; TAKE 1 TABLET D AILY. DOMINIQUE Palmer Start: 19-Nov-2017 Quantity: 90 A. Refills: 3 Ventolin HFA 108 (90 Base) MCG/ACT Inhal ation Aerosol Solution; inhale 2 to 4 puffs by mouth every 6 hours if needed for shortness of breath or wheezing Lily Edward III Start: 13-Jan-2019 Quantity: 2 18 GM Inhaler Refills: 3 Thiamine HCl - 100 MG Oral Tablet; TAKE 1 TABLET DAILY. Start: 19-Nov-2017 Refills: 0 Oxybutynin Chloride ER 5 MG Oral Tablet Extended Release 24 Hour; TAKE 1 TABLET EACH BEDTIME Lily Edward III Start: 24-Jul-2018 Quantity: 30 Refills: 5 Celecoxib 200 MG Oral Capsule; take 1 capsule by mouth daily if needed DOMINIQUE Palmer Start: 23-Feb-2019 Quantity: 30 A. Refills: 1 busPIRone HCl - 7.5 MG Oral Tablet; take 1 tablet by m out twice a day Lily Edward III Start: 23-Feb-2019 Quantity: 60 Refills: 5 Procedures History of Knee Replacement Status: Comp leted History of Back Surgery Status: Complete d Immunizations Influenza On: 09-Sep-2014 11:50 Lot #: [id number], [employer] Hepatitis A On: 08-Sep-2015 14:10 Lot #: [id number], [employer] Family History Brother Family history of kidney disease (V18.69) (Z84.1) Status: Ac tive Mother Family history of hypertension (V17.49) (Z82.49) Status: Act karen Father Family history of colon cancer (V16.0) (Z80.0) Status: Activ e Social History - Smoking Status Current every day smoker Current some day smoker Plan of Treatment Planned Observations Planned Goals not documented Results No Known Results Results not documented Encounters Appointment; Evelyne Palmer PA-C 18-Dec-2018 11:30 Encounter Diagnosis: Problem not documented Appointment; Evelyne Palmer PA-C 25-Aug-2018 13:30 Encounter Diagnosis: Problem not documented Appointment; Marcelo Edward III, M.D. 24-Jul-2018 14:40 Encounter Diagnosis: Problem not documented Appointment; Marcelo Edward III, M.D. 23-Dec-2017 8:50 Encounter Diagnosis: Problem not documented
[2019-04-26] MEDS ORDERED: fentaNYL citrate 100 MCG/2 ML VIAL IV STA (02:16)
[2019-04-26] MEDS ORDERED: MULTI-VITAMIN INFUSION 10 ML, THIAMINE HCL 100 MG, FOLIC ACID 1 MG in SODIUM CHLORIDE 0... IV SCH (02:30)
--- NOTE | 2019-04-26 02:34 | Emergency Department Note ---
ED Provider Note Name: Lida Cuellar Age: 68 F Arrives Via: EMS Informant: Pt, EMS CC: Left Leg Pain HPI: 68 female arrives for evaluation of left leg pain. Patient admits daily intoxication to help with pain/life. She notes she has had several falls recently. 3 days ago fell striking head/face on ground. Mild headache since as well as general neck discomfort. She notes she was drinking etoh again tonight when she fell landing on left knee. Immediately pain and inability to move leg. States she felt lightheaded and dizzy prior to falling. Notes she has severe pain in left knee/thigh radiating to ankle. No low back pain currently. No abdominal pain, cp, sob, vision changes, loss bowel/bladder, nor other symptoms. Movement makes worse, laying still makes better. Denies drug use. Admits ETOH use. No medications prior to arrival. ROS: See above HPI for pertinent positives & negatives. A total of 10 systems reviewed and were otherwise negative. Past Medical History: COPD, Hepatitis C, Bronchitis, HTN, Depression Past Surgical History: Left knee "years" ago Family History: Denies Social History: Smoker, Lives at home, Feels safe Home Medications: Buspirone, Celecoxib, Gabapentin Allergies: Refocoxib, Methylprednisolone, aspirin Physical: Vitals: BP 149/75, P 71, R 18, T 36.9, O2 94% RA Exam: GENERAL: Patient is very uncomfortable appearing and in moderate distress. Moderately intoxicated and smells of alcohol EYES: No scleral icterus, unremarkable pupils. ENT: Contusion and mild flattening to bridge of nose, otherwise mucous membranes moist, no nasal congestion. NECK: No masses appreciated, no meningismus, trachea is midline. RESPIRATORY: No dyspnea. Clear to auscultation and equal bilaterally. No wheeze, no rhonchi. CARDIOVASCULAR: Regular rate and rhythm. No murmurs, rubs, gallops appreciated. GASTROINTESTINAL: Abdomen soft, non-tender, no peritonitis. Bowel sounds positive. No masses appreciated. BACK: No midline tenderness, no CVA tenderness EXTREMITIES: Left leg mildly externally rotated and knee bent at 20 degrees with swelling distal left thigh. Severe knee pain with ROM. Distal pulses, sensation and movement intact. Otherwise normal motion all extremities, no cyanosis, no edema. NEUROLOGIC: Alert and oriented, no acute motor or sensory deficits, no focal weakness, cranial nerves grossly intact. SKIN: No rash, no jaundice, no diaphoresis. GCS 15 ED Course: Prior Medical Record, Triage/Nursing Notes, Medications, Allergies reviewed by Me Vital Signs: reviewed and remarkable for wnl Labs: Reviewed and remarkable for + etoh Interventions: Saline Lock, Fentanyl 75mcg IV, Morphine 6mg IV, Banana Bag 1 L IV, NSS infusion Imaging: X ray results are stated below per my interpretation: Chest: 1 view: No infiltrate, no effusion, normal cardiac border. Pelvis: 1 view: No fracture, dislocation. Femur: 4 view: Left femur. Distal distracted comminuted fracture. TKA hardware in place Tib Fib: 3 view: Left: No fracture nor dislocation. [facility] Radiologist interpretation reviewed by me: CT head/Cervical spine: Nasal fracture, no other acute findings EKG: Per My Interpretation: Indication Syncope: NSR 69 bpm without ectopy nor ischemia. QTC 477. No change from Oct 2017. Consults: Dr Hernandez notes leave leg in position of comfort if unable to place in immobilizer and admit to hospitalist. [facility] Reassessments/Times: Stable, feeling better with pain meds. Unable to straighten leg due to severe pain even post narcotics. Blood pressure: Elevated - Referred to Hospitalist Disposition: Hospitalization Differentials: Differential: Fracture, Intracranial injury, Cervical injury, ACS, Alcohol Intoxication, Drug Intoxication, Electrolyte Abnormality, Trauma, Intracranial Event, Toxicological, Excited Delirium, Serotonin Syndrome, amongst other pathologies entertained. Medical Decision Making: Intoxicated 68 yr old female who admits daily etoh but states last few days multiple syncopal events. She is intoxicated with severe left thigh pain on movement. injury to bridge of nose noted. With these imaging felt indicated. CT head/cervical with nasal fracture. Xrays with left distal femur fracture. She is comfortable with left knee slightly bent and externally rotated and thus will leave in this position as even with pain meds on board severe pain with trying to straighten. She has good distal pulses and cap refill with sensation and movement intact on several repeat evaluations. She has no evidence ACS and story does not seem consistent with PE/dissection. No evidence stroke on examination. Suspect syncope is alcohol related but will clearly need further work-up. She was reviewed with Ortho and will come in to hospitalist service gi joss multiple medical comorbidities and her intoxicated state. Kept NPO, fluids started, pain controlled and tompkins placed due to inability to ambulate to bathroom. Impression: Femur Fracture Left Syncope Alcohol Intoxication Closed Fracture Nasal Bone Stephan Lutz MD Impression & Plan Femur fracture, left, Syncope, Alcohol intoxication, Closed fracture nasal bone Past Med/Surg History Social History Feels Safe at Home: Yes Smoking Status: Current every day smoker Results & Data Vital Signs Vital Signs - 24 hr 04/26/19 01:50 04/26/19 03:14 04/26/19 05:00 Temperature 36.9 C Temperature Source Oral Sepsis Recent Fever Within 48 Hours No Sepsis New/Unexplained Change in Mental Status No Sepsis Action Taken by Nursing No Action Required Pulse Rate 72 Pulse Rate [Right Finger] 71 72 Respiratory Rate 18 Blood Pressure 149/75 H Blood Pressure [Right Arm] 149/75 H Blood Pressure Mean 99 Blood Pressure Mean [Right Arm] 99 Pulse Oximetry 96 94 91 Oxygen Delivery Method Room Air Room Air Room Air Laboratory Data Result diagrams: 04/26/19 02:32 04/26/19 02:32 Lab Results 04/26/19 04/26/19 04/26/19 Range/Units 02:32 02:32 02:32 WBC 7.69 (4.8-10.8) K/uL RBC 3.92 L (4.2-5.4) M/uL Hgb 13.8 (12.0-16.0) g/dL Hct 38.6 (37-47) % MCV 98.5 (80-100) fL MCH 35.2 H (25-34) pg MCHC 35.8 (32-36) g/dL RDW Std Deviation 48.3 H (36.4-46.3) fL RDW Coeff of Jose Luis 13.5 (11.5-14.5) % Plt Count 161 (130-400) K/uL MPV 10.1 (7.4-10.4) fL Immature Gran % (Auto) 0.3 % Neut % (Auto) 57.2 % Lymph % (Auto) 32.5 % [place] % (Auto) 6.2 % Eos % (Auto) 3.4 % Baso % (Auto) 0.4 % Immature Gran # (Auto) 0.02 (0.00-0.02) K/uL Neut # (Auto) 4.40 (1.4-6.5) K/uL Lymph # (Auto) 2.50 (1.2-3.4) K/uL [place] # (Auto) 0.48 (0.11-0.59) K/uL Eos # (Auto) 0.26 (0-0.5) K/uL Baso # (Auto) 0.03 (0-0.2) K/uL PT 11.5 (9.0-12.0) Seconds INR 1.1 (0.9-1.1) Sodium 130 L (136-145) mmol/L Potassium 3.6 (3.5-5.1) mmol/L Chloride 98 (98-107) mmol/L Carbon Dioxide 24 (21-32) mmol/L Anion Gap 8.0 (3-11) BUN 10 (7-18) mg/dl Creatinine 0.76 (0.6-1.2) mg/dl Est Cr Clr Drug Dosing 72.0 ml/min Est GFR ( Amer) 93.4 Est GFR (Non-Af Amer) 80.6 BUN/Creatinine Ratio 13.0 (10-20) Glucose 125 H (70-99) mg/dl Calcium 8.4 L (8.5-10.1) mg/dl Magnesium 2.1 (1.8-2.4) mg/dl Total Bilirubin 0.9 (0.2-1) mg/dl Direct Bilirubin 0.5 H (0-0.2) mg/dl AST 120 H (15-37) U/L ALT 90 H (12-78) U/L Alkaline Phosphatase 269 H (45-117) U/L Total Creatine Kinase 80 (26-192) U/L Troponin I < 0.015 (0-0.045) ng/ml Total Protein 7.9 (6.4-8.2) gm/dl Albumin 3.0 L (3.4-5.0) gm/dl Urine Color Urine Appearance (Clear) Urine pH (4.5-7.5) Ur Specific [place] (1.000-1.030) Urine Protein (Negative) Urine Glucose (UA) (Negative) Urine Ketones (Negative) Urine Blood (Negative) Urine Nitrite (Negative) Urine Bilirubin (Negative) Urine Urobilinogen (Negative) Ur Leukocyte Esterase (Negative) Urine Opiates Screen (Neg) Ur Methadone, Qual (Neg) Urine Barbiturates (Neg) Ur Phencyclidine (PCP) (Neg) U Amphetamin/Meth Scrn (Neg) MDMA (Ecstasy) Screen (Neg) U Benzodiazepines Scrn (Neg) Ur Cocaine Metabolite (Neg) U Marijuana (THC) Screen (Neg) Ethyl Alcohol mg/dL (0-3) mg/dl 04/26/19 04/26/19 04/26/19 Range/Units 02:32 02:45 02:45 WBC (4.8-10.8) K/uL RBC (4.2-5.4) M/uL Hgb (12.0-16.0) g/dL Hct (37-47) % MCV (80-100) fL MCH (25-34) pg MCHC (32-36) g/dL RDW Std Deviation (36.4-46.3) fL RDW Coeff of Jose Luis (11.5-14.5) % Plt Count (130-400) K/uL MPV (7.4-10.4) fL Immature Gran % (Auto) % Neut % (Auto) % Lymph % (Auto) % [place] % (Auto) % Eos % (Auto) % Baso % (Auto) % Immature Gran # (Auto) (0.00-0.02) K/uL Neut # (Auto) (1.4-6.5) K/uL Lymph # (Auto) (1.2-3.4) K/uL [place] # (Auto) (0.11-0.59) K/uL Eos # (Auto) (0-0.5) K/uL Baso # (Auto) (0-0.2) K/uL PT (9.0-12.0) Seconds INR (0.9-1.1) Sodium (136-145) mmol/L Potassium (3.5-5.1) mmol/L Chloride (98-107) mmol/L Carbon Dioxide (21-32) mmol/L Anion Gap (3-11) BUN (7-18) mg/dl Creatinine (0.6-1.2) mg/dl Est Cr Clr Drug Dosing ml/min Est GFR ( Amer) Est GFR (Non-Af Amer) BUN/Creatinine Ratio (10-20) Glucose (70-99) mg/dl Calcium (8.5-10.1) mg/dl Magnesium (1.8-2.4) mg/dl Total Bilirubin (0.2-1) mg/dl Direct Bilirubin (0-0.2) mg/dl AST (15-37) U/L ALT (12-78) U/L Alkaline Phosphatase (45-117) U/L Total Creatine Kinase (26-192) U/L Troponin I (0-0.045) ng/ml Total Protein (6.4-8.2) gm/dl Albumin (3.4-5.0) gm/dl Urine Color Yellow Urine Appearance Clear (Clear) Urine pH 5.5 (4.5-7.5) Ur Specific [place] 1.013 (1.000-1.030) Urine Protein Negative (Negative) Urine Glucose (UA) Negative (Negative) Urine Ketones Negative (Negative) Urine Blood Negative (Negative) Urine Nitrite Negative (Negative) Urine Bilirubin Negative (Negative) Urine Urobilinogen Negative (Negative) Ur Leukocyte Esterase Negative (Negative) Urine Opiates Screen Neg (Neg) Ur Methadone, Qual Neg (Neg) Urine Barbiturates Neg (Neg) Ur Phencyclidine (PCP) Neg (Neg) U Amphetamin/Meth Scrn Neg (Neg) MDMA (Ecstasy) Screen Neg (Neg) U Benzodiazepines Scrn Neg (Neg) Ur Cocaine Metabolite Neg (Neg) U Marijuana (THC) Screen Pos H (Neg) Ethyl Alcohol mg/dL 165.0 H (0-3) mg/dl Administered Medications Discontinued Medications Fentanyl Citrate (Fentanyl Citrate) 75 mcg IV NOW STA Stop: 04/26/19 02:17 Last Admin: 04/26/19 02:44 Dose: 75 mcg Documented by: [id number] Multivitamins 10 ml/ Thiamine HCl 100 mg/ Folic Acid 1 mg/Sodium Chloride 1,011.2 mls @ 1,011.2 mls/hr IV .Q1H RICHARD Stop: 04/26/19 03:29 Last Admin: 04/26/19 03:45 Dose: 1,011.2 mls/hr Documented by: [id number] Morphine Sulfate (Morphine Sulfate) 6 mg IV NOW STA Stop: 04/26/19 03:27 Last Admin: 04/26/19 03:45 Dose: 6 mg Documented by: [id number] Discharge Plan Visit Data Chief Complaint: Fall Stated Complaint: FALL/KNEE INJURY Other Complaint: Knee Injury/Pain ED Provider: Stephan Lutz Discharge Problem: Femur fracture, left, Syncope, Alcohol intoxication, Closed fracture nasal bone Forms Stand Alone Forms: My [facility] [employer] Prescriptions Prescriptions: No Action celecoxib 200 mg capsule 200 mg PO DAILY RF: 0 gabapentin 300 mg capsule 600 mg PO TID RF: 0 buspirone 7.5 mg tablet 7.5 mg PO BID RF: 0 Discharge Problem: Femur fracture, left Qualifiers: Encounter type: initial encounter Femur location: shaft Fracture type: closed Fracture morphology: comminuted Fracture alignment: displaced Qualified Code(s): S72.352A - Displaced comminuted fracture of shaft of left femur, initial encounter for closed fracture Syncope Qualifiers: Syncope type: unspecified Qualified Code(s): R55 - Syncope and collapse Alcohol intoxication Qualifiers: Complication of substance-induced condition: uncomplicated Qualified Code(s): F10.920 - Alcohol use, unspecified with intoxication, uncomplicated Closed fracture nasal bone Qualifiers: Encounter type: initial encounter Qualified Code(s): S02.2XXA - Fracture of nasal bones, initial encounter for closed fracture
[2019-04-26 02:48] LABS: Basophils # (auto) 0.03 K/uL (0-0.2); Basophils % (auto) 0.4 %; Eosinophils # (auto) 0.26 K/uL (0-0.5); Eosinophils % (auto) 3.4 %; Hematocrit (blood only) 38.6 % (37-47); Hemoglobin 13.8 g/dL (12.0-16.0); Immature Granulocytes # (auto) 0.02 K/uL (0.00-0.02); Immature Granulocytes % (auto) 0.3 %; Lymphocytes % (auto) 32.5 %; Mean Corpuscular Hgb Conc 35.8 g/dL (32-36); Mean Corpuscular Volume 98.5 fL (80-100); Mean Platelet Volume 10.1 fL (7.4-10.4); Monocytes # (auto) 0.48 K/uL (0.11-0.59); Monocytes % (auto) 6.2 %; Neutrophils % (auto) 57.2 %; Platelet Count 161 K/uL (130-400); RDW Coefficient of Variation 13.5 % (11.5-14.5); RDW Standard Deviation 48.3 fL (36.4-46.3); Red Blood Count 3.92 M/uL (4.2-5.4); White Blood Count 7.69 K/uL (4.8-10.8)
[2019-04-26 02:54] LABS: Appearance Urine Clear (Clear); Bilirubin Urine Negative (Negative); Blood Urine Negative (Negative); Color Urine Yellow; Glucose Urine UA Negative (Negative); Ketones Urine Negative (Negative); Leukocyte Esterase Urine Negative (Negative); Nitrite Urine Negative (Negative); Protein Urine Negative (Negative); Specific Gravity Urine 1.013 (1.000-1.030); Urobilinogen Urine Negative (Negative); pH Urine 5.5 (4.5-7.5)
[2019-04-26 02:57] LABS: INR 1.1 (0.9-1.1); Prothrombin Time 11.5 Seconds (9.0-12.0)
[2019-04-26 03:06] LABS: Alanine Aminotransferase 90 U/L (12-78); Aspartate Aminotransferase 120 U/L (15-37); Bilirubin Direct 0.5 mg/dl (0-0.2); Blood Urea Nitrogen 10 mg/dl (7-18); Calcium 8.4 mg/dl (8.5-10.1); Carbon Dioxide 24 mmol/L (21-32); Chloride 98 mmol/L (98-107); Est GFR (African American) 93.4; Est GFR (Non-African American) 80.6; Glucose 125 mg/dl (70-99); Magnesium 2.1 mg/dl (1.8-2.4); Potassium 3.6 mmol/L (3.5-5.1); Sodium 130 mmol/L (136-145)
[2019-04-26 03:11] LABS: Alkaline Phosphatase 269 U/L (45-117); Bilirubin,Total 0.9 mg/dl (0.2-1); Creatine Kinase 80 U/L (26-192); Total Protein 7.9 gm/dl (6.4-8.2); Troponin I < 0.015 ng/ml (0-0.045)
[2019-04-26] MEDS ORDERED: MoRPHine SULFATE 10 MG/ML CARP/VIAL IV STA (03:26)
[2019-04-26] MEDS ORDERED: MoRPHine SULFATE 10 MG/ML CARP/VIAL IV PRN ×2 (04:57→08:06)
[2019-04-26] MEDS ORDERED: SODIUM CHLORIDE 0.9% 1000ML 1,000 ML IV SCH (05:00)
[2019-04-26 05:10] LABS: Amphetamines+Metham, Urine Neg (Neg); Barbiturates, Urine Neg (Neg); Benzodiazepine, Urine Neg (Neg); Cocaine, Urine Neg (Neg); MDMA (Ecstacy), Urine Neg (Neg); Methadone, Urine Neg (Neg); Opiate, Urine Neg (Neg); Phencyclidine, Urine Neg (Neg)
--- NOTE | 2019-04-26 07:03 | History & Physical Report ---
Date of Service April 26, 2019 Assessment & Plan (1) Femur fracture, left: Admit to medical surgical floor. N.p.o. Acetaminophen 1 g IV every 8 hours. Mild pain or temperature. Morphine sulfate 6 mg IV every 4 hours as needed severe pain. NSS + KCl 20 mEq at 100 mils per hour. Consult Dr. Hernandez with clint surgery, who is aware the patient. Present on Admission?: Yes (2) Syncope: Associated with alcohol intoxication. Present on Admission?: Yes (3) Alcohol intoxication: Alcohol intoxication/alcohol abuse- Placed on alcohol withdrawal program with IV Ativan. Present on Admission?: Yes (4) Suicidal ideation: Will be holding buspirone and gabapentin. Will use Ativan as needed. Present on Admission?: Yes (5) Alcohol abuse: As above. Present on Admission?: Yes History of Present Illness Chief Complaint: The patient presents to the emergency department via EMS after a history of falling several times, she developed worsening pain in her left leg and hip area, that was somewhat masked by her daily intoxication. Primary Care Provider: Marcelo Edward MD Patient is a 60-year-old female with a past medical history including depression, alcohol abuse, suicidal ideation, syncope, hepatitis C who presents to the emergency department with severe left hip pain, underwent appropriate work-up including x-rays, which shows a closed left femur fracture and was referred for evaluation for admission. Allergies Allergy/AdvReac Type Severity Reaction Status Date / Time rofecoxib Allergy Intermediate HIVES Verified 04/26/19 04:29 methylprednisolone Allergy Mild Itchiness Verified 04/26/19 04:29 aspirin AdvReac Mild AGITATED Verified 04/26/19 04:29 AND SWEATY celecoxib AdvReac Mild HEAD PAIN Verified 04/26/19 04:29 Home Medications Home Medications Medication Instructions Recorded Confirmed Type buspirone 7.5 mg PO BID 04/26/19 04/26/19 History celecoxib 200 mg PO DAILY 04/26/19 04/26/19 History gabapentin 600 mg PO TID 04/26/19 04/26/19 History Past Med/Surg History Medical History Chronic back pain Depression Anxiety Alcohol abuse Femur fracture, left (Acute) Syncope (Acute) Alcohol intoxication (Acute) Closed fracture nasal bone (Acute) Radius and ulna distal fracture (Acute) COPD exacerbation (Acute) Suicidal ideation (Acute) Hepatitis C (Resolved) Degenerative disc disease Fibromyalgia Fusion of spine Osteoarthritis Surgical History History of total knee replacement Left S/P lumbar fusion S/P wrist surgery Right Social History Preferred Language: Azeri Communication Ability: Effective Rehabilitation Caseworker Required: No Beliefs That Will Affect Care: None Current Living Situation: Spouse Other Information That Helps Us Care for You: No Feels Safe at Home: Yes Safety Concerns: Feels Safe At This Time Smoking Status: Current every day smoker Tobacco Type: cigarettes Cigarettes Per Day: 1 ppd x since age 16 Do You Dip or Chew Tobacco: No Second Hand Exposure: Yes Tobacco Cessation Education Requested by Patient: No Hx Alcohol Use: Yes Alcohol type: beer Hx Substance Use: Yes substance use type: marijuana (Last use 1 day ago) Last Used Substance: Hours (ago) Review of Systems Review of Systems: The patient denies chest pain, palpitations, shortness of breath, dyspnea on exertion, cough, lower extremity swelling, sore throat, fevers, chills, sweats, weight change, fatigue, nausea, vomiting, diarrhea , constipation, abdominal pain, pelvic pain, blood in urine or stool, dysuria, urinary frequency or urgency, lightheadedness, dizziness, headache, loss of consciousness, rash, abnormal bruising or bleeding, focal or generalized weakness, numbness or tingling in arms , generalized arthralgias or myalgias, back or neck pain, or night sweats. The review of systems is otherwise negative other than for that already noted above, and at least 10 systems have been reviewed. Physical Exam Physical Exam: The patient is awake, alert and oriented 3, lying in bed and in no acute distress. HEENT--PERRL, EOMI, mucous membranes and oropharynx dry. Neck--supple. No JVD. No bruits. Thyroid normal, trachea midline, no adenopathy. Heart--normal S1 and S2. No murmurs, rubs or gallops. Lungs--clear bilaterally, no respiratory distress, no accessory muscle use. Abdomen--normal bowel sounds and soft. Nontender. Nondistended, no hernias or masses, no organomegaly. Extremities--no cyanosis or clubbing. No edema. There are good distal pulses b/l. Dermatologic--normal skin turgor, normal color, no abnormal lymph nodes, no rash. Neurologic--cranial nerves II through XII grossly intact. Rheumatologic-decreased range of motion of left hip due to pain Psychiatric--normal affect. Results & Data Vital Signs (Past 12 Hours) Vital Signs Temp Pulse Pulse Resp BP BP Pulse Ox 04/26/19 05:00 72 91 04/26/19 03:14 71 149/75 H 94 04/26/19 01:50 98.4 F 72 18 149/75 H 96 Laboratory Results Laboratory Results WBC 7.69 K/uL (4.8-10.8) 04/26/19 02:32 RBC 3.92 M/uL (4.2-5.4) L 04/26/19 02:32 Hgb 13.8 g/dL (12.0-16.0) 04/26/19 02:32 Hct 38.6 % (37-47) 04/26/19 02:32 MCV 98.5 fL (80-100) 04/26/19 02:32 MCH 35.2 pg (25-34) H 04/26/19 02:32 MCHC 35.8 g/dL (32-36) 04/26/19 02:32 RDW Std Deviation 48.3 fL (36.4-46.3) H 04/26/19 02:32 RDW Coeff of Jose Luis 13.5 % (11.5-14.5) 04/26/19 02:32 Plt Count 161 K/uL (130-400) 04/26/19 02:32 MPV 10.1 fL (7.4-10.4) 04/26/19 02:32 Immature Gran % (Auto) 0.3 % 04/26/19 02:32 Neut % (Auto) 57.2 % 04/26/19 02:32 Lymph % (Auto) 32.5 % 04/26/19 02:32 [place] % (Auto) 6.2 % 04/26/19 02:32 Eos % (Auto) 3.4 % 04/26/19 02:32 Baso % (Auto) 0.4 % 04/26/19 02:32 Immature Gran # (Auto) 0.02 K/uL (0.00-0.02) 04/26/19 02:32 Neut # (Auto) 4.40 K/uL (1.4-6.5) 04/26/19 02:32 Lymph # (Auto) 2.50 K/uL (1.2-3.4) 04/26/19 02:32 [place] # (Auto) 0.48 K/uL (0.11-0.59) 04/26/19 02:32 Eos # (Auto) 0.26 K/uL (0-0.5) 04/26/19 02:32 Baso # (Auto) 0.03 K/uL (0-0.2) 04/26/19 02:32 PT 11.5 Seconds (9.0-12.0) 04/26/19 02:32 INR 1.1 (0.9-1.1) 04/26/19 02:32 Sodium 130 mmol/L (136-145) L 04/26/19 02:32 Potassium 3.6 mmol/L (3.5-5.1) 04/26/19 02:32 Chloride 98 mmol/L (98-107) 04/26/19 02:32 Carbon Dioxide 24 mmol/L (21-32) 04/26/19 02:32 8.0 (3-11) 04/26/19 02:32 BUN 10 mg/dl (7-18) 04/26/19 02:32 0.76 mg/dl (0.6-1.2) 04/26/19 02:32 Est Cr Clr Drug Dosing 72.0 ml/min 04/26/19 02:32 Est GFR ( Amer) 93.4 04/26/19 02:32 Est GFR (Non-Af Amer) 80.6 04/26/19 02:32 13.0 (10-20) 04/26/19 02:32 Glucose 125 mg/dl (70-99) H 04/26/19 02:32 Calcium 8.4 mg/dl (8.5-10.1) L 04/26/19 02:32 Magnesium 2.1 mg/dl (1.8-2.4) 04/26/19 02:32 0.9 mg/dl (0.2-1) 04/26/19 02:32 0.5 mg/dl (0-0.2) H 04/26/19 02:32 AST 120 U/L (15-37) H 04/26/19 02:32 ALT 90 U/L (12-78) H 04/26/19 02:32 269 U/L (45-117) H 04/26/19 02:32 80 U/L (26-192) 04/26/19 02:32 < 0.015 ng/ml (0-0.045) 04/26/19 02:32 7.9 gm/dl (6.4-8.2) 04/26/19 02:32 3.0 gm/dl (3.4-5.0) L 04/26/19 02:32 Yellow 04/26/19 02:45 Clear (Clear) 04/26/19 02:45 5.5 (4.5-7.5) 04/26/19 02:45 Ur Specific [place] 1.013 (1.000-1.030) 04/26/19 02:45 Negative (Negative) 04/26/19 02:45 Negative (Negative) 04/26/19 02:45 Negative (Negative) 04/26/19 02:45 Negative (Negative) 04/26/19 02:45 Negative (Negative) 04/26/19 02:45 Negative (Negative) 04/26/19 02:45 Negative (Negative) 04/26/19 02:45 Ur Leukocyte Esterase Negative (Negative) 04/26/19 02:45 Neg (Neg) 04/26/19 02:45 Ur Methadone, Qual Neg (Neg) 04/26/19 02:45 Neg (Neg) 04/26/19 02:45 Ur Phencyclidine (PCP) Neg (Neg) 04/26/19 02:45 U Amphetamin/Meth Scrn Neg (Neg) 04/26/19 02:45 Neg (Neg) 04/26/19 02:45 U Benzodiazepines Scrn Neg (Neg) 04/26/19 02:45 Ur Cocaine Metabolite Neg (Neg) 04/26/19 02:45 U Marijuana (THC) Screen Pos (Neg) H 04/26/19 02:45 165.0 mg/dl (0-3) H 04/26/19 02:32 Code Status & VTE Plan Code Status full code VTE Prophylaxis Plan VTE Prophylaxis will be ordered: Yes (1) Alcohol intoxication Complication of substance-induced condition: uncomplicated Qualified Code(s): F10.920 - Alcohol use, unspecified with intoxication, uncomplicated (2) Syncope Syncope type: unspecified Qualified Code(s): R55 - Syncope and collapse (3) Femur fracture, left Encounter type: initial encounter Femur location: shaft Fracture alignment: displaced Fracture morphology: comminuted Fracture type: closed Qualified Code(s): S72.352A - Displaced comminuted fracture of shaft of left femur, initial encounter for closed fracture
[2019-04-26] MEDS ORDERED: ATIVAN IV ALCOHOL WITHDRAWL IV SCH (08:06)
[2019-04-26] MEDS ORDERED: ACETAMINOPHEN 1,000 MG/100 ML VIAL IV PRN (08:06)
[2019-04-26] MEDS ORDERED: LORazepam 2 MG/4 ML VIAL IV PRN (08:06)
[2019-04-26] MEDS ORDERED: LORazepam 3 MG/6 ML VIAL IV PRN (08:06)
[2019-04-26] MEDS ORDERED: ONDANSETRON INJ 2 MG/ML 2 ML VIAL IV PRN ×2 (08:06→09:09)
--- NOTE | 2019-04-26 08:38 | Orthopedic Consultation ---
Date of Consultation April 26, 2019 Assessment & Plan (1) Femur fracture, left: I talked to her at bedside about the risks, benefits, and alternatives to surgical fixation of her left distal femur. After discussion she like to proceed with open reduction internal fixation. She has not eaten anything in the past 12 hours and she already has medical clearance. Will likely take her to the OR this morning. We will maintain her n.p.o. status. She will receive Ancef preoperatively. Present on Admission?: Yes History of Present Illness Reason for Consultation: Left periprosthetic femur fracture Attending Physician: Raciel Fernandes MD History of Present Illness Lida is a pleasant 68-year-old female who had a left total knee arthroplasty done by Dr. Matty Julio about 15 years ago. Unfortunately last night she was intoxicated and fell onto her left knee. She has significant pain and deformity of her left knee. She came to the emergency room and radiographs demonstrated a displaced left periprosthetic distal femur fracture. Because of her medical comorbidities she was admitted to the medicine service. Orthopedics was consulted to evaluate and treat. Allergies Allergy/AdvReac Type Severity Reaction Status Date / Time rofecoxib Allergy Intermediate HIVES Verified 04/26/19 04:29 methylprednisolone Allergy Mild Itchiness Verified 04/26/19 04:29 aspirin AdvReac Mild AGITATED Verified 04/26/19 04:29 AND SWEATY celecoxib AdvReac Mild HEAD PAIN Verified 04/26/19 04:29 Home Medications Home Medications Medication Instructions Recorded Confirmed Type buspirone 7.5 mg PO BID 04/26/19 04/26/19 History celecoxib 200 mg PO DAILY 04/26/19 04/26/19 History gabapentin 600 mg PO TID 04/26/19 04/26/19 History Patient History Social History Feels Safe at Home: Yes Smoking Status: Current every day smoker Review of Systems Review of Systems: All systems reviewed & are unremarkable except as noted in HPI & below Physical Exam Musculoskeletal: On physical examination of her left leg, her left knee is flexed. She has severe pain with any range of motion of her left knee. There are no abrasions lesions laceration to the skin there is no signs of infection. She is active dorsiflexion plantarflexion of her left ankle. Results & Data Vital Signs (Past 12 Hours) Vital Signs Temp Pulse Pulse Resp BP BP Pulse Ox 04/26/19 08:00 36.8 C 76 14 136/77 95 04/26/19 07:43 77 12 151/48 H 98 04/26/19 07:01 75 13 164/78 H 04/26/19 07:00 76 14 04/26/19 06:00 78 14 158/83 H 99 04/26/19 05:00 74 72 12 131/62 92 04/26/19 04:07 72 16 96 04/26/19 03:14 71 149/75 H 94 04/26/19 01:50 36.9 C 72 18 149/75 H 96 04/26/19 01:48 71 20 149/75 H 97 Laboratory Results H & H 04/26/19 Range/Units 02:32 Hgb 13.8 (12.0-16.0) g/dL Hct 38.6 (37-47) % Coagulation 04/26/19 Range/Units 02:32 INR 1.1 (0.9-1.1) Diagnostic Findings X-rays of the left distal femur show a displaced comminuted periprosthetic left distal femur fracture. (1) Femur fracture, left Encounter type: initial encounter Femur location: shaft Fracture alignment: displaced Fracture morphology: comminuted Fracture type: closed Qualified Code(s): S72.352A - Displaced comminuted fracture of shaft of left femur, initial encounter for closed fracture
--- NOTE | 2019-04-26 08:52 | Anesthesiology Consultation ---
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 Consults Requested none ASA [id number] Proposed Anesthesia Anesthesia Type: General Risk / Benefits Reviewed With: PT / POA / Parent / Guardian, Accepts Plan and Informed Consent Obtained History Surgery Operation Date: 04/26/19 09:30 Proposed Procedures p Open Reduction Internal Fixation Femur - Brady Hernandez, DO Height/Weight Height: 1.57 m Weight: 87.1 kg Allergies Allergy/AdvReac Type Severity Reaction Status Date / Time rofecoxib Allergy Intermediate HIVES Verified 04/26/19 04:29 methylprednisolone Allergy Mild Itchiness Verified 04/26/19 04:29 aspirin AdvReac Mild AGITATED Verified 04/26/19 04:29 AND SWEATY celecoxib AdvReac Mild HEAD PAIN Verified 04/26/19 04:29 Medications Home Medications Medication Instructions Recorded Confirmed Last Taken buspirone 7.5 mg PO BID 04/26/19 04/26/19 04/25/19 15:00 celecoxib 200 mg PO DAILY 04/26/19 04/26/19 04/25/19 gabapentin 600 mg PO TID 04/26/19 04/26/19 04/26/19 01:00 NPO Date Last Intake of Fluids: 04/26/19 Time Last Intake of Fluids: 00:01 Last Intake of Fluids Comment: 4 beers Date Last Intake of Solids: 04/25/19 Time Last Intake of Solids: 16:00 Past Medical History Medical History Chronic back pain Depression Anxiety Alcohol abuse Femur fracture, left (Acute) Syncope (Acute) Alcohol intoxication (Acute) Closed fracture nasal bone (Acute) Radius and ulna distal fracture (Acute) COPD exacerbation (Acute) Suicidal ideation (Acute) Hepatitis C (Resolved) Degenerative disc disease Fibromyalgia Fusion of spine Osteoarthritis Exercise / Class Metabolic Activity II 4-5 Yardwork/Stairs/Walk up hill Past Surgical History Surgical History History of total knee replacement Left S/P lumbar fusion S/P wrist surgery Right Past Anesthesia History No Hx of Anesthesia Complications and No Family Hx of Anesthesia Complications History of PONV No Hx of PONV and No Hx of Motion Sickness Social History Smoking Status: Current every day smoker tobacco type: cigarettes Smoking cigarettes per day: 1 ppd x since age 16 Do You Dip or Chew Tobacco: No Hx Alcohol Use: Yes alcohol intake frequency: a few times a week Hx Substance Use: Yes substance use type: marijuana (Last use 1 day ago) Review of Systems Respiratory: no dyspnea Cardiovascular: no chest pain Gastrointestinal: no nausea and no vomiting Physical Exam Vital Signs Last Vital Signs Temp 36.8 C 04/26/19 08:00 Pulse 76 04/26/19 08:00 Resp 14 04/26/19 08:00 BP 136/77 04/26/19 08:00 Pulse Ox 95 04/26/19 08:00 Constitutional + obese ENMT Mouth: + poor dentition (Multiple missing teeth); no TMJ abnormality and no TMJ clicking Thyromental Distance: < 3.5 Finger Breadths Mallampati Class: II Neck normal visual inspection; neck extension not limited Respiratory Auscultation: lungs clear to auscultation bilaterally Cardiovascular Rate/Rhythm: regular rate and regular rhythm Psychiatric Orientation: alert and oriented x 3 Testing Laboratory Results 04/26/19 02:32 04/26/19 02:32 04/26/19 04/26/19 02:32 02:45 PT 11.5 INR 1.1 Urine Color Yellow Urine Appearance Clear Urine pH 5.5 Ur Specific [place] 1.013 Urine Protein Negative Urine Glucose (UA) Negative Urine Ketones Negative Urine Nitrite Negative Ur Leukocyte Esterase Negative Laboratory Tests 11/15/17 05:13 Hemoglobin A1c 5.5 Laboratory Tests 11/15/17 05:13 Hemoglobin A1c 5.5 ETOH: 165 mg/dl + urine marijuana Electrocardiogram Date: 04/26/19 Findings: + NSR @ (69 bpm) Poor data quality, interpretation may be adversely affected Normal sinus rhythm Minimal voltage criteria for LVH, may be normal variant Borderline ECG When compared with ECG of 14-NOV-2017 12:27, No significant change was found Cervical Spine Date: 04/26/[address]: FINDINGS: Skeletal structures: The skeletal structures are osteopenic. There is no evidence of fracture or subluxation involving the cervical spine. Vertebral body height and alignment are maintained. There is straightening of the cervical lordosis with mild reversal centered at C4-C5. Anterior osteophytes are seen throughout. The odontoid process and lateral masses are intact. The atlantoaxial articulation is preserved. The spinous processes appear intact. There is moderate multilevel cervical spondylosis. Uncovertebral and facet arthropathy contribute to neural foraminal narrowing at several levels. Intervertebral discs: There is advanced disc space narrowing seen at C5-C6 and C6-C7. Moderate disc space narrowing is seen at C3-C4 and C4-C5. Central canal: Posterior disc osteophyte complexes from C3 -C4 through C6-C7 likely contribute to multilevel acquired compromise of the central canal. Soft tissues: The prevertebral and paraspinous soft tissues are within normal limits. There is atherosclerotic calcification of the carotid bulbs. Calvarium: The visualized calvarium at the skull base appears intact. Brain parenchyma: Partially visualized brain parenchyma the skull base is within normal limits. Sinuses and mastoids: The visualized paranasal sinuses are clear. The mastoid air cells are well pneumatized. Lung apices: Clear as visualized. IMPRESSION: 1. There is no evidence of fracture or subluxation involving the cervical spine. 2. Osteopenia and spondylotic change as above.
[2019-04-26] MEDS ORDERED: LIDOCAINE HCL 2% 2 ML VIAL/AMP(20MG/ML) INFIL ONE (08:59)
[2019-04-26] MEDS ORDERED: PHENYLEPHRINE HCL 10 MG/ML VIAL ONE (08:59)
[2019-04-26] MEDS ORDERED: GLYCOPYRROLATE 0.2 MG/ML VIAL ONE (08:59)
[2019-04-26] MEDS ORDERED: NEOSTIGMINE METHYLSULFATE 5 MG/5 ML SYR ONE (08:59)
[2019-04-26] MEDS ORDERED: MIDAZOLAM HCL 1 MG/ML 2ML VIAL ONE (08:59)
[2019-04-26] MEDS ORDERED: DEXAMETHASONE SOD INJ 4 MG/ML VIAL ONE (08:59)
[2019-04-26] MEDS ORDERED: SUCCINYLCHOLINE CHLORIDE 20 MG/ML 10 ML VIAL ONE (08:59)
[2019-04-26] MEDS ORDERED: PROPOFOL IV EMULSION 10 MG/ML 20 ML VIAL IV ONE ×2 (08:59→12:54)
[2019-04-26] MEDS ORDERED: ONDANSETRON INJ 2 MG/ML 2 ML VIAL ONE (08:59)
[2019-04-26] MEDS ORDERED: fentaNYL citrate 100 MCG/2 ML VIAL ONE ×3 (08:59→13:22)
[2019-04-26] MEDS ORDERED: ePHEDrine sulfate 50 MG/ML AMP ONE (08:59)
--- NOTE | 2019-04-26 09:03 | CT Scan Report ---
CT SCAN OF THE CERVICAL SPINE CLINICAL HISTORY: Fall. Intoxication. COMPARISON STUDY: CT scan of the cervical spine dated 08/20/2017. TECHNIQUE: CT scan of the cervical spine is performed from the skull base to the upper thoracic spine . Images are reviewed in the axial, sagittal, and coronal planes. IV contrast was not administered fo r this examination. A dose lowering technique was utilized adhering to the principles of ALARA. FINDINGS: Skeletal structures: The skeletal structures are osteopenic. There is no evidence of fracture or subl uxation involving the cervical spine. Vertebral body height and alignment are maintained. There is st raightening of the cervical lordosis with mild reversal centered at C4-C5. Anterior osteophytes are s een throughout. The odontoid process and lateral masses are intact. The atlantoaxial articulation is preserved. The spinous processes appear intact. There is moderate multilevel cervical spondylosis. Un covertebral and facet arthropathy contribute to neural foraminal narrowing at several levels. Intervertebral discs: There is advanced disc space narrowing seen at C5-C6 and C6-C7. Moderate disc s pace narrowing is seen at C3-C4 and C4-C5. Central canal: Posterior disc osteophyte complexes from C3 -C4 through C6-C7 likely contribute to mul tilevel acquired compromise of the central canal. Soft tissues: The prevertebral and paraspinous soft tissues are within normal limits. There is athero sclerotic calcification of the carotid bulbs. Calvarium: The visualized calvarium at the skull base appears intact. Brain parenchyma: Partially visualized brain parenchyma the skull base is within normal limits. Sinuses and mastoids: The visualized paranasal sinuses are clear. The mastoid air cells are well pneu matized. Lung apices: Clear as visualized. IMPRESSION: 1. There is no evidence of fracture or subluxation involving the cervical spine. 2. Osteopenia and spondylotic change as above. Electronically signed by: Yuriy Wilcox M.D. 04/26/2019 9:01 AM
[2019-04-26] MEDS ORDERED: PROMETHAZINE HCL 12.5 MG in SODIUM CHLORIDE 0.9% 50 ML IV PRN (09:09)
[2019-04-26] MEDS ORDERED: PHENYLEPHRINE 100MCG/ML 5ML SYR IV PRN (09:09)
[2019-04-26] MEDS ORDERED: ATROPINE SULFATE 0.1 MG/ML 10ML SYR IV PRN (09:09)
[2019-04-26] MEDS ORDERED: ePHEDrine sulfate 50 MG/ML AMP IV PRN (09:09)
[2019-04-26] MEDS ORDERED: HYDROmorphone INJ 1 MG/ML SYRINGE IV PRN (09:09)
[2019-04-26] MEDS ORDERED: POVIDONE-IODINE OP SOLN 30 ML BTL ONE (09:37)
--- NOTE | 2019-04-26 10:23 | CT Scan Report ---
CT SCAN OF THE BRAIN WITHOUT IV CONTRAST CLINICAL HISTORY: Fall. Intoxication. COMPARISON STUDY: CT of the brain dated 08/20/2017. TECHNIQUE: Unenhanced axial CT scan of the brain is performed from the vertex to the skull base. A do se lowering technique was utilized adhering to the principles of ALARA. CT DOSE: 1028.49 mGy.cm FINDINGS: Brain parenchyma: There is mild subcortical and periventricular microangiopathic change. There is no hemorrhage, mass effect, or evidence of acute territorial ischemia by CT criteria. A tiny chronic lac unar infarct is noted in the right cerebellar hemisphere. Alves-white matter differentiation is preser laisha. No extra-axial fluid collection is seen. Ventricles, sulci, cisterns: Prominent secondary to involutional change. Intracranial vasculature: There is atherosclerotic calcification of the cavernous carotid and vertebr al arteries. Calvarium: The skeletal structures are osteopenic. No depressed calvarial fracture is identified. The re are age indeterminant bilateral nasal bone fractures. Sinuses and mastoids: The visualized paranasal sinuses are clear. The mastoid air cells are well pneu matized. Orbits: The bony orbits are grossly intact. IMPRESSION: 1. There is no hemorrhage, mass effect, or evidence of acute territorial ischemia by CT criteria. 2. There are bilateral age indeterminant nasal bone fractures. Clinical correlation will be required. Electronically signed by: Yuriy Wilcox M.D. 04/26/2019 10:22 AM
[2019-04-26] MEDS ORDERED: BUPIVACAINE/EPINEPHRINE 0.5% MPF 1:200,000 30 ML VIAL ONE (10:41)
[2019-04-26] MEDS ORDERED: NSS + 20MEQ KCL 20 MEQ/1,000 ML BAG IV SCH (12:00)
--- NOTE | 2019-04-26 12:41 | XRay Report ---
SINGLE VIEW PELVIS; 3 VIEWS LEFT FEMUR CLINICAL HISTORY: Fall with left leg injury. FINDINGS: 2 AP portable views of the pelvis with AP, frog-leg, and crosstable lateral views of the le ft femur are obtained. No prior studies are available for comparison at the time of dictation. The sk eletal structures are osteopenic. No fracture is seen involving the hips or bony pelvis. The proximal left femur is intact. There is a comminuted fracture of the distal femoral metadiaphysis with distra cted fragments and apex dorsal angulation. There is medial distraction of the largest distal fragment s by approximately 3 cm. There is overriding of the fragments by up to 4 cm. Overlying soft tissue ed huang is noted. Moderate arthritic change and joint space narrowing is seen in the hips. There is degen erative sclerosis of the sacroiliac joints. Lumbosacral fusion hardware is partially imaged. There ar e numerous pelvic phleboliths. A left knee arthroplasty is in place. The femoral fracture approaches the arthroplasty. No bowel obstruction is seen. IMPRESSION: 1. There is no radiographic evidence of acute fracture involving the hips or bony pelvis. 2. There is a comminuted, distracted, overriding, and a gated fracture of the distal femoral metadiap hysis as above. 3. The femoral fracture approaches a left knee arthroplasty. 4. Osteopenia and degenerative change as above. Electronically signed by: Yuriy Wilcox M.D. 04/26/2019 12:39 PM
--- NOTE | 2019-04-26 12:42 | XRay Report ---
LEFT TIBIA AND FIBULA 2 VIEWS CLINICAL HISTORY: Fall with left leg injury. FINDINGS: Crosstable AP and lateral portable views of the left tibia and fibula are obtained. No prio r studies are available for comparison at the time of dictation. The skeletal structures are osteopen ic. There is no radiographic evidence of left tibial or fibular fracture. A left knee arthroplasty is in place. The ankle joint is grossly maintained. The overlying soft tissues are normal as imaged. IMPRESSION: There is no radiographic evidence of left tibial or fibular fracture. Electronically signed by: Yuriy Wilcox M.D. 04/26/2019 12:41 PM
--- NOTE | 2019-04-26 12:45 | XRay Report ---
SINGLE VIEW CHEST CLINICAL HISTORY: Fall. FINDINGS: An AP, portable, supine chest radiograph is compared to study dated 08/20/2017. Correlation is made with chest CT dated 02/01/2014. The examination is degraded by portable technique and patient rotation. The heart is top normal for projection and there is atherosclerotic calcification of the t horacic aorta. The pulmonary vasculature is noncongested. Emphysema and chronic interstitial thickeni ng are similar to previous. No airspace consolidation or large pleural effusion is identified. There is mild elevation of left hemidiaphragm with associated atelectasis. No pneumothorax is seen. The ske letal structures are osteopenic. There are chronic left-sided rib fractures. A left 9th rib fracture is age indeterminant. IMPRESSION: 1. Emphysematous change with no acute cardiopulmonary abnormality. 2. There are healed bilateral rib fractures. A left lateral 9th rib fracture is age indeterminant and may be acute. Correlate clinically for point tenderness. Electronically signed by: Yuriy Wilcox M.D. 04/26/2019 12:44 PM
[2019-04-26] MEDS ORDERED: ALBUTEROL HFA INHALER 8.5 GM ONE (12:54)
[2019-04-26] MEDS: fentaNYL citrate 100 MCG/2 ML VIAL IV PRN ×4 (13:18→13:34)
--- NOTE | 2019-04-26 13:31 | Operative Report ---
Post Operative Report Pre & Post Diagnosis Operation Date: 04/26/19 09:30 Pre-Op Diagnosis: Left closed distal femur fracture Post-Op Diagnosis: Left closed distal femur fracture Procedure Operation Date: 04/26/19 09:30 Actual Procedures p Intermedullary Nailing Left Distal Femur Fracture(Left) - Brady Hernandez DO Surgeon Brady Hernandez DO Wire Puller None Estimated Blood Loss 300 Findings Consistent with Post-Op Diagnosis Specimens None Complications none Disposition Disposition: Recovery Room Indications Lida is a pleasant 68-year-old female who was intoxicated yesterday and fell on her left flexed knee. She had a left total knee arthroplasty done by Dr. Matty Julio in 2006. Unfortunately she noticed a significant deformity and came to the emergency room. Radiographs demonstrated a periprosthetic left distal femur fracture. She was admitted to the medicine service. And orthopedics was consulted. After discussions with her at bedside, she elected to proceed with an open reduction internal fixation of her left knee with intramedullary nail. Description of Procedure On April 26, 2019 she was brought down from her hospital room to the preoperative holding area. The operative extremity was identified and signed. She is given a preoperative antibiotic. She was taken back to operative room and laid on table in supine position. She was put under general anesthesia. The left knee was prepped and draped in sterile fashion. A timeout was done. The patient and the operative extremity was properly identified. The old midline incision from the previous knee surgery was opened up. Dissection was taken down to the extensor mechanism and a medial parapatellar arthrotomy was used. The fracture was then identified. The fracture was very comminuted there were several wafers of bone that were loose within the fracture site. I had a difficult time trying to line up in the fracture edges. A guidepin was then placed in the superior central aspect of the box on the femoral component. A 13mm drill was then used to open up the femoral canal. A ball-tipped guidewire was then passed up the femoral canal to the lesser trochanter. The nail measured to be 340 mm. Sequential reaming up to a size 12 .5 reamer was done. An 11 x 340 Synthes RF and nail was then impacted retrograde along the femoral shaft. A small lateral incision was made for the distal locking screws. The distal locking screw was placed followed by the helical blade. The leg was then pulled into traction and the AP screw was placed at the proximal aspect of the nail. This was done with use of perfect [place] technique. Final fluoroscopic images showed near anatomic alignment. There was a large area of comminution in the metaphyseal region. This was filled with the loose bone chips that were present in the fracture site. The wound was then irrigated. The joint was then lavaged with dilute Betadine solution and left in place for 3 minutes. The wound was once again irrigated. The extensor mechanism was closed with #2 FiberWire suture in the superior medial aspect and #1 Vicryl in the superior and inferior aspects. Skin was closed with 2-0 Vicryl 3 oh VueLock suture and christiano. The lateral incision and the AP incision proximally was closed with 2-0 Vicryl and christiano. She was then placed in a soft dressing and a knee immobilizer. She was then extubated and transferred to a [facility]. She was taken to the postanesthesia care unit in stable condition. She tolerated the procedure well. I attest to the content of the Intraoperative Record and any orders documented therein. Any exceptions are noted below.
[2019-04-26] MEDS ORDERED: METOCLOPRAMIDE HCL INJ 5 MG/ML 2 ML VIAL IV PRN (14:15)
[2019-04-26] MEDS ORDERED: HYDROmorphone INJ 0.5 MG/0.5 ML SYR IV PRN (14:15)
[2019-04-26] MEDS ORDERED: NALOXONE HCL 0.4 MG/1 ML VIAL/CARP IV PRN (14:15)
[2019-04-26] MEDS ORDERED: MAGNESIUM HYDROXIDE SUSP 30 ML UDC PO PRN (14:15)
[2019-04-26] MEDS ORDERED: BISACODYL 10 MG SUPP PR PRN (14:15)
--- NOTE | 2019-04-26 14:15 | Anesthesiology Progress Note ---
Date of Service April 26, 2019 Anesthesia Post Procedure Vital Signs Vital Signs: Temp Pulse Pulse Pulse Resp BP BP 04/26/19 13:55 36.4 C L 81 18 127/81 04/26/19 13:45 82 18 97/51 L 04/26/19 13:35 79 18 133/58 L 04/26/19 13:25 81 18 124/58 L 04/26/19 13:18 36.6 C 93 H 18 126/97 04/26/19 08:00 36.8 C 76 14 04/26/19 07:43 77 12 151/48 H 04/26/19 07:01 75 13 164/78 H 04/26/19 07:00 76 14 04/26/19 06:00 78 14 158/83 H 04/26/19 05:00 74 72 12 131/62 04/26/19 04:07 72 16 04/26/19 03:14 71 04/26/19 01:50 36.9 C 72 18 149/75 H 04/26/19 01:48 71 20 149/75 H BP Pulse Ox 04/26/19 13:55 96 04/26/19 13:45 95 04/26/19 13:35 99 04/26/19 13:25 98 04/26/19 13:18 98 04/26/19 08:00 136/77 95 04/26/19 07:43 98 04/26/19 07:01 04/26/19 07:00 04/26/19 06:00 99 04/26/19 05:00 92 04/26/19 04:07 96 04/26/19 03:14 149/75 H 94 04/26/19 01:50 96 04/26/19 01:48 97 Pain Intensity Left Knee: Pain Intensity: 7 Transfer of Care Handoff Completed per policy Notes Mental Status: alert / awake / arousable Patient Amnestic to Procedure: Yes Nausea / Vomiting: adequately controlled Pain: adequately controlled Airway Patency, RR, SpO2: stable & adequate BP & HR: stable & adequate Hydration State: stable & adequate Anesthetic Complications: no major complications apparent Notes: Awake, doing well, no complaints. VSS
--- NOTE | 2019-04-26 14:34 | Fluoroscopy Report ---
INTRAOPERATIVE RADIOGRAPHS CLINICAL HISTORY: Open reduction and internal fixation of the left femur. Fluoroscopy time: 81 seconds. FINDINGS: 4 spot fluoroscopic views of the left femur are correlated with radiographs dated 04/26/2019. An intramedullary nail has been placed, transfixing a comminuted fracture with distracted fragments through the distal femoral metadiaphysis. Alignment is improved post fixation with persistent offset of the largest fragments. A left knee arthroplasty is in place. The orthopedic hardware appears intac t. IMPRESSION: Intraoperative images from open reduction and internal fixation of a distal left femoral fracture as above. Electronically signed by: Yuriy Wilcox M.D. 04/26/2019 2:32 PM
[2019-04-26] MEDS: MULTI-VITAMIN INFUSION 10 ML, THIAMINE HCL 100 MG, FOLIC ACID 1 MG in SODIUM CHLORIDE 0... IV SCH (14:50)
[2019-04-26] MEDS: ACETAMINOPHEN 500 MG TAB PO SCH ×2 (15:36→21:27)
[2019-04-26] MEDS: KETOROLAC TROMETHAMINE 15 MG/ML VIAL IV SCH ×2 (15:47→21:28)
--- NOTE | 2019-04-26 16:44 | History & Physical Bridge Note ---
Date of Service April 26, 2019 History & Physical Bridge Note Patient seen and examined this morning. With left femur pain. Plan for surgery today with Dr. Hernandez. Morgan score is <1.0%, so by AHA guidelines, no further pre-operative testing. No prior reactions to anesthesia or PRBCs.
[2019-04-26] MEDS: SODIUM CHLORIDE 0.9% 1000ML 1,000 ML IV SCH (16:47)
[2019-04-26] MEDS: CEFAZOLIN 2000MG 2,000 MG/15 ML SYR IV SCH (18:16)
[2019-04-26] MEDS: OXYCODONE HCL IR 5 MG TAB (IMMEDIATE RELEASE) PO PRN ×2 (19:04→23:53)
[2019-04-26] MEDS ORDERED: PNEUMOCOCCAL POLYSACCHARIDES 25 MCG/0.5 ML VIAL/SYR IM ONE (20:30)
[2019-04-26] MEDS ORDERED: PNEUMOCOCCAL ADMINISTRATION CHARGE ONE (20:30)
[2019-04-26] MEDS: DOCUSATE SODIUM 100 MG CAP PO SCH (21:03)
[2019-04-26] MEDS: SENNA 8.6 MG TAB PO SCH (21:03)
[2019-04-27] MEDS: CEFAZOLIN 2000MG 2,000 MG/15 ML SYR IV SCH (02:34)
[2019-04-27] MEDS: SODIUM CHLORIDE 0.9% 1000ML 1,000 ML IV SCH (02:34)
[2019-04-27] MEDS: KETOROLAC TROMETHAMINE 15 MG/ML VIAL IV SCH ×2 (03:46→08:50)
[2019-04-27] MEDS: ACETAMINOPHEN 500 MG TAB PO SCH ×3 (05:30→21:00)
[2019-04-27 05:40] LABS: Hematocrit (blood only) 28.8 % (37-47); Hemoglobin 9.7 g/dL (12.0-16.0); Mean Corpuscular Hgb Conc 33.7 g/dL (32-36); Mean Corpuscular Volume 101.1 fL (80-100); Mean Platelet Volume 9.9 fL (7.4-10.4); Platelet Count 111 K/uL (130-400); RDW Coefficient of Variation 13.8 % (11.5-14.5); RDW Standard Deviation 51.3 fL (36.4-46.3); Red Blood Count 2.85 M/uL (4.2-5.4); White Blood Count 8.16 K/uL (4.8-10.8)
[2019-04-27 06:05] LABS: BUN Creatinine Ratio 12.4 (10-20); Calcium 7.6 mg/dl (8.5-10.1); Creatinine Clr Calc Pharmacy 72.6 ml/min; Est GFR (African American) 93.4; Est GFR (Non-African American) 80.6
--- NOTE | 2019-04-27 06:30 | Orthopedic Progress Note ---
Date of Service April 27, 2019 Assessment & Plan (1) Femur fracture, left: Overall she is doing fairly well. She is not having too much pain in the left knee. She will be nonweightbearing on her left leg for about 6 weeks. Between 6 weeks and 3 months we will slowly progress her range of motion and her weightbearing depending on what the x-rays show. By 3 months she should be weightbearing as tolerated and slowly getting back to full activities. I want the dressing to stay in place in the knee immobilizer to stay in place until she follows up with me in the office in 2 weeks. Physical therapy and occupational therapy has been ordered to show her how to get around with her nonweightbearing restrictions. We will keep her on Xarelto 10 mg daily for 6 weeks for DVT prophylaxis. She is orthopedically stable for discharge when medically ready. She does have family support at home but her has had multiple back surgeries and may not be able to fully take care of her. She may be a candidate for rehab placement. We will see how she does today with physical therapy. Present on Admission?: Yes Subjective Pending was seen and examined at bedside this morning. Overall she is doing fairly well. She is not having too much pain in the left knee. She was able to get some sleep last night. She had a lot of questions at bedside regarding her overall recovery time period. Physical Exam Musculoskeletal: On physical examination of the left knee, the knee immobilizer is in place. Her dressings clean and dry. She is active dorsiflexion and plantarflexion of her left ankle. Sensations intact throughout. Results & Data Vital Signs (Past 12 Hours) Vital Signs Temp Pulse Resp BP Pulse Ox 04/27/19 03:47 37.0 C 82 14 125/66 95 04/26/19 23:12 37.4 C 81 14 123/65 96 04/26/19 19:40 36.9 C 04/26/19 19:31 37.6 C H 86 18 150/76 H 95 Laboratory Results H & H 04/26/19 04/27/19 Range/Units 02:32 05:18 Hgb 13.8 9.7 L D (12.0-16.0) g/dL Hct 38.6 28.8 L (37-47) % Coagulation 04/26/19 Range/Units 02:32 INR 1.1 (0.9-1.1) (1) Femur fracture, left Encounter type: initial encounter Femur location: shaft Fracture alignment: displaced Fracture morphology: comminuted Fracture type: closed Qualified Code(s): S72.352A - Displaced comminuted fracture of shaft of left femur, initial encounter for closed fracture
[2019-04-27] MEDS: OXYCODONE HCL IR 5 MG TAB (IMMEDIATE RELEASE) PO PRN ×2 (07:05→18:06)
[2019-04-27] MEDS: RIVAROXABAN 10 MG TABLET PO SCH (08:48)
[2019-04-27] MEDS: MULTIVITAMIN TAB PO SCH (08:48)
[2019-04-27] MEDS: DOCUSATE SODIUM 100 MG CAP PO SCH ×2 (08:48→20:52)
[2019-04-27] MEDS: MULTI-VITAMIN INFUSION 10 ML, THIAMINE HCL 100 MG, FOLIC ACID 1 MG in SODIUM CHLORIDE 0... IV SCH (08:49)
[2019-04-27] MEDS: LORazepam 1 MG/2 ML VIAL IV PRN ×2 (13:27→22:32)
[2019-04-27] MEDS ORDERED: XOPENEX/ATROVENT 1.25mg/0.5MG NEB COMBO NEB SCH (14:00)
[2019-04-27] MEDS: guaiFENesin 600 MG TABCR PO SCH ×2 (14:07→20:52)
[2019-04-27] MEDS: BUSPIRONE HCL 7.5 MG TAB PO SCH ×2 (14:08→20:53)
[2019-04-27] MEDS: GABAPENTIN 600 MG TAB PO SCH ×2 (14:08→20:52)
[2019-04-27] MEDS: IPRATROPIUM BROMIDE NEB SOLN 0.02% 2.5 ML VIAL INH SCH ×2 (14:45→20:07)
[2019-04-27] MEDS: LEVALBUTEROL 1.25MG/0.5ML NEB INH SCH ×2 (14:45→20:07)
[2019-04-27] MEDS: SENNA 8.6 MG TAB PO SCH (20:52)
[2019-04-28] MEDS: LEVALBUTEROL 1.25MG/0.5ML NEB INH SCH ×4 (01:16→19:01)
[2019-04-28] MEDS: IPRATROPIUM BROMIDE NEB SOLN 0.02% 2.5 ML VIAL INH SCH ×4 (01:16→19:01)
[2019-04-28] MEDS: ACETAMINOPHEN 500 MG TAB PO SCH ×3 (05:42→21:39)
[2019-04-28] MEDS: OXYCODONE HCL IR 5 MG TAB (IMMEDIATE RELEASE) PO PRN ×4 (05:49→19:03)
[2019-04-28] MEDS: LORazepam 1 MG/2 ML VIAL IV PRN (06:12)
--- NOTE | 2019-04-28 06:41 | Orthopedic Progress Note ---
Date of Service April 28, 2019 Assessment & Plan (1) Femur fracture, left: Overall she is doing about as well as expected. She is going to have a lot of soreness in her left leg. The hamstrings and the calf muscles attached to the comminuted fracture fragments and its going to be sore until callus formation begins to take place. She will be strict nonweightbearing for 6 weeks and likely some sort of protective weightbearing for a total of 3 months. We will continue oxycodone for pain control. I also gave her a prescription for Ativan because of her anxiety and her history of alcohol. She will be on Xarelto 10 mg daily for 6 weeks for DVT prophylaxis. She is orthopedically stable for discharge when medically ready. She will follow-up with orthopedics 2 to 3 weeks from the day of injury. Present on Admission?: Yes Subjective Lida was seen and examined at bedside this morning. Unfortunately she is having a lot of pain in her left leg. She seems fairly upset about her today. She has been trying to cooperate with physical therapy with her nonweightbearing restrictions. She understands going to take some time to get better. She was able to get some sleep last night. Physical Exam Musculoskeletal: On physical examination of her left leg, the knee immobilizer is in place. The dressing is clean and dry. She is active dorsiflexion plantarflexion of her left ankle. Results & Data Vital Signs (Past 12 Hours) Vital Signs Temp Pulse Pulse Resp BP Pulse Ox 04/28/19 04:25 36.8 C 93 H 18 137/68 96 04/28/19 01:16 84 16 80 L 04/27/19 22:55 37.5 C 89 16 105/69 93 04/27/19 20:54 37.4 C 96 H 18 101/65 92 04/27/19 20:07 57 L 16 94 (1) Femur fracture, left Encounter type: initial encounter Femur location: shaft Fracture alignment: displaced Fracture morphology: comminuted Fracture type: closed Qualified Code(s): S72.352A - Displaced comminuted fracture of shaft of left femur, initial encounter for closed fracture
--- NOTE | 2019-04-28 07:04 | Hospitalist Progress Note ---
Date of Service April 27, 2019 Assessment & Plan (1) Femur fracture, left: distal, periprosthetic. s/p ORIF, POD #1. xarelto for DVT proph. gabapentin resumed (takes chronically at home). check vitamin D level in am. needs rehab. (2) Syncope: In setting of alcohol intoxication. BPs stable since admission. (3) Alcohol intoxication: Alcohol intoxication - at admission. Resolved. May have mild withdrawal but no dinora DTs. Resume gabapentin 600 TID (takes chronically at home) - this can be used for alcohol withdrawal prevention. Ativan prn. (4) Suicidal ideation: Patient voices anxiety but no depression or suicidal ideation at this time. (5) Alcohol abuse: As above. Thiamine/folic acid/MVI. etoh withdrawal protocol in place. (6) Acute blood loss anemia: will need ferrous sulfate supplementation BID at d/c. would recheck CBC next 48 hours for stability. (7) Hepatitis C: chronic, last 4 sets of LFTs all mild-moderately increased. follow. no signs/symptoms of hepatic encephalopathy. (8) COPD (chronic obstructive pulmonary disease): patient reports symptoms x 3-4 weeks. start mucinex BID. start nebs q6h. consider narrow-spectrum antibiotics. would ONLY use steroids if she worsens or if absolutely necessary. (9) DVT prophylaxis: xarelto Subjective c/o left leg pain, anxiety (significant), early satiety, abd bloating. no nausea and IS passing flatus. no stool. doesn't feel shaky, however, and denies etoh withdrawal sx's. has never experienced DTs/withdrawal. "I just drink 4 beers a day, that's all" she states. Review of Systems Constitutional: no fever Respiratory: no dyspnea Cardiovascular: no chest pain Gastrointestinal: no abdominal pain and no vomiting Physical Exam Constitutional: well developed and well nourished; no acute distress and no altered mental status anxious ENMT: external ear and nose normal, oropharynx normal Respiratory: normal respiratory effort, lungs clear to auscultation Cardiovascular: Rate/Rhythm: regular rate and regular rhythm Heart Sounds: normal S1 and normal S2; no murmur Vessels: posterior tibial pulses present and dorsalis pedis pulses present; no JVD Gastrointestinal (Abdomen): normal bowel sounds, soft, nontender, no hepatosplenomegaly Inspection/Auscultation: + abdomen distended (mild) Musculoskeletal: left leg in immobilizer Neurologic: no tremors or asterixis Psychiatric: Orientation: alert and oriented x 3 Affect: + anxious affect Results & Data Vital Signs (Past 12 Hours) Vital Signs Temp Pulse Pulse Resp BP Pulse Ox 04/28/19 06:56 37.0 C 87 20 141/69 H 97 04/28/19 04:25 36.8 C 93 H 18 137/68 96 04/28/19 01:16 84 16 80 L 04/27/19 22:55 37.5 C 89 16 105/69 93 04/27/19 20:54 37.4 C 96 H 18 101/65 92 04/27/19 20:07 57 L 16 94 Laboratory Results Hb 9.7 (previous 13.8) BMP wnl (1) Alcohol intoxication Complication of substance-induced condition: uncomplicated Qualified Code(s): F10.920 - Alcohol use, unspecified with intoxication, uncomplicated (2) Syncope Syncope type: unspecified Qualified Code(s): R55 - Syncope and collapse (3) Femur fracture, left Encounter type: initial encounter Femur location: shaft Fracture alignment: displaced Fracture morphology: comminuted Fracture type: closed Qualified Code(s): S72.352A - Displaced comminuted fracture of shaft of left femur, initial encounter for closed fracture (4) Hepatitis C Viral hepatitis chronicity: chronic Hepatic coma status: without hepatic coma Qualified Code(s): B18.2 - Chronic viral hepatitis C (5) COPD (chronic obstructive pulmonary disease) COPD type: unspecified COPD Qualified Code(s): J44.9 - Chronic obstructive pulmonary disease, unspecified
[2019-04-28] MEDS ORDERED: ERGOCALCIFEROL 50,000 UNITS CAP PO ONE (09:00)
[2019-04-28] MEDS: BUSPIRONE HCL 7.5 MG TAB PO SCH ×2 (09:13→21:40)
[2019-04-28] MEDS: MULTI-VITAMIN INFUSION 10 ML, THIAMINE HCL 100 MG, FOLIC ACID 1 MG in SODIUM CHLORIDE 0... IV SCH (09:13)
[2019-04-28] MEDS: RIVAROXABAN 10 MG TABLET PO SCH (09:13)
[2019-04-28] MEDS: DOCUSATE SODIUM 100 MG CAP PO SCH ×2 (09:13→21:25)
[2019-04-28] MEDS: MULTIVITAMIN TAB PO SCH (09:13)
[2019-04-28] MEDS: GABAPENTIN 600 MG TAB PO SCH ×3 (09:13→21:40)
[2019-04-28] MEDS: guaiFENesin 600 MG TABCR PO SCH ×2 (09:13→21:40)
[2019-04-28] MEDS ORDERED: BISACODYL 10 MG SUPP PR STA (09:58)
[2019-04-28] MEDS: FLUTICASONE/SALMETEROL 250/50 (ADVAIR) 14 PUFF/1 INHALER INH SCH ×2 (11:13→21:25)
[2019-04-28] MEDS: DOXYCYCLINE HYCLATE 100 MG CAP PO SCH ×2 (11:14→21:25)
--- NOTE | 2019-04-28 16:23 | Psychiatric Consultation ---
Date of Consultation April 28, 2019 Impression / Recommendations (1) Generalized anxiety disorder: Lida is a 68 year old female with a past psychiatric history of rapid cycling bipolar 2 disorder, generalized anxiety disorder/agoraphobia with associated panic symptoms and substance abuse disorder. She has been on several different psychiatric medications in the past. Currently she is having worsening of her anxiety symptoms which can be attributed to her hip fracture, and likely from withdrawal from her substances of abuse (marijuana and alcohol). She is very adamant about having a prescription for ativan when she leaves here but this would be a very poor idea considering she has shown abuse of this medication in the past, has had recent falls (now w/ a hip fx) and is currently drinking alcohol and smoking marijuana. When asked about attending a rehab facility for her substance abuse she is very adamant that she does not want to go to rehab and that she can "just quit" on her own. Considering her is also an alcoholic would make this very difficult. Due to the fact that she has not shown consistent follow up in the outpatient setting it would not be recommended to re-start the patient on a mood stabilizing medication, as this would need to be monitored closely for side effects and efficacy. At this point we would recommend increasing her buspar dose to 10mg bid. It would also be recommended to decrease the patients ativan dose while in the hospital and stopping it all together as soon as possible. Hydroxyzine can be used as an alternative on a prn basis if she has worsening anxiety symptoms. Follow up with a psychiatrist can be organized closer to the time of discharge in order to discuss restarting mood stabilizing medication but at this point this will likely not prove to be very effective is she is unable to control her excessive alcohol and marijuana use. We will continue to follow along as the patient remains in the hospital. I discussed this patients case with Dr. Bazan and she helped in coordinating this patients assessment and plan. Psych History Chief Complaint "I just feel on edge all the time". History of Present Illness Lida is a 60 year old female with a PMH of hepatitis C, chronic back pain, rapid cycling bipolar disorder, generalized anxiety disorder and substance abuse disorder that presented to [facility] with severe left hip pain. She was diagnosed with a hip fracture and is currently POD#1. We were asked to see her in consult due to worsening complaints of anxiety. Patient notes that she has been feeling extremely anxious while in the hospital. She has had trouble sleeping and is anxious "about everything". She notes that her mind is constantly racing and she is having constant "mini" panic attacks. Throughout the day she feels short of breath and has a feeling of impending doom. She says the only thing that helps to control her nerves is ativan and marijuana. She notes she has always been a very anxious person and has never enjoyed going out in public and interacting with others. She says her goes to the grocery store and whenever she leaves the house she needs to go with a friend or else she knows she will become short of breath and have a panic attack. She says she has trouble sleeping and will wake up 10 or more times at night because she always has to go pee. She also has trouble falling asleep as she notes she has a racing mind. She says that there are days when she is able to stay up all night and needs very little sleep. During these periods of increased energy she will sing and paint at home and listen to music. She says these periods of increased energy can last for up to a week at a time. She notes that when she isn't feeling this way she can feel down and tired. She will lay in bed for 3-4 days at a time and won't want to leave her room. She says occasionally she will see shadows on the marsh, but denies any auditory hallucinations and denies any obvious delusions. She denies any SI. She notes to me that she has had several tragic things happen in her life but says that she wants to write them down and does not want to talk about them today. Of note she has had two prior psychiatric hospitalizations at [facility] with the last one being in 2013. One of these was for comments about wanting to hurt herself. She has been seen by Dr. Ludwig in the past whom has diagnosed the patient with rapid cyclinc bipolar 2 disorder. He had seen her in 2013 and 2014. He had trialed the patient on seroquel and lamictal. The patient notes that the last time she saw him was approximately 3 years ago. She stopped her psychiatric medication at the time and stopped going to see him because she says "there were tons of people outside the office room listening to us so I just stopped going". She notes she then started getting prescribed anxiety medication from her PCP approximately [address] Edward is her PCP and started the patient on buspar 7.5mg to be taken bid. After reviewing records it appears the patient has been on doxepin, neurontin, seroquel, risperidal, effexor, elavil and lithium. Currently the only psychiatric medication the patient is on is buspar and she takes gabapentin for her chronic back pain. She notes to me today that she has started receiving ativan in the hospital and this is the only thing that helps with her nerves. According to records she lied on a urine test and was therefore stopped her prescription for ativan and has not been represcribed it since. The patient denies any family history of psychiatric illness except for her mother whom had a nervous breakdown and was treated with ECT. The patient notes that she is currently on disability for her chronic lower back pain. She lives with her in [place]. She notes she drinks 6-10 beers daily. She also smokes marijuana 3 times a day. She notes she did experiment with cocaine, LSD, speed and IV drugs when she was younger. Allergies Allergy/AdvReac Type Severity Reaction Status Date / Time rofecoxib Allergy Intermediate HIVES Verified 04/26/19 04:29 methylprednisolone Allergy Mild Itchiness Verified 04/26/19 04:29 aspirin AdvReac Mild AGITATED Verified 04/26/19 04:29 AND SWEATY celecoxib AdvReac Mild HEAD PAIN Verified 04/26/19 04:29 Home Medications Home Medications Medication Instructions Recorded Confirmed Type buspirone 7.5 mg PO BID 04/26/19 04/26/19 History celecoxib 200 mg PO DAILY 04/26/19 04/26/19 History gabapentin 600 mg PO TID 04/26/19 04/26/19 History lorazepam 0.5 mg PO Q8H PRN #30 tab 04/28/19 Rx oxycodone 5 - 10 mg PO Q4H PRN #40 tab 04/28/19 Rx rivaroxaban [Xarelto] 10 mg PO DAILY #40 tab 04/28/19 Rx Personal History Beliefs That Will Affect Care: None Patient History Medical History Chronic back pain Depression Anxiety Alcohol abuse Femur fracture, left (Acute) Syncope (Acute) Alcohol intoxication (Acute) Closed fracture nasal bone (Acute) Radius and ulna distal fracture (Acute) COPD exacerbation (Acute) Suicidal ideation (Acute) Hepatitis C (Resolved) Degenerative disc disease Fibromyalgia Fusion of spine Osteoarthritis Surgical History History of total knee replacement Left S/P lumbar fusion S/P wrist surgery Right Social History Preferred Language: [place]erratian Communication Ability: Effective Pocket Operator Required: No Beliefs That Will Affect Care: None marital status: Life Partner Current Living Situation: Spouse Other Information That Helps Us Care for You: No Feels Safe at Home: Yes Safety Concerns: Feels Safe At This Time Smoking Status: Current every day smoker Tobacco Type: cigarettes Cigarettes Per Day: 1 ppd x since age 16 Do You Dip or Chew Tobacco: No Second Hand Exposure: Yes Tobacco Cessation Education Requested by Patient: No Hx Alcohol Use: Yes Alcohol type: beer Hx Substance Use: Yes substance use type: marijuana (Last use 1 day ago) Last Used Substance: Hours (ago) Physical Exam Psychiatric: Orientation: alert Apperance: + disheveled Eye Contact: good eye contact Speech: normal rate/rhythm/volume of speech Affect: + anxious affect and + tearful affect Mood: + anxious mood Thought Process: clear/coherent thought process Suicidal Thoughts: denies suicidal thoughts and denies suicidal plan Hallucinations: no auditory hallucinations, no visual hallucinations, no tactile hallucinations and no gustatory hallucinations Cognition: recent memory grossly intact Insight: + fair insight Vital Signs (Past 24 Hours): Last Vital Signs Temp 36.8 C 04/28/19 11:09 Pulse 101 H 04/28/19 14:01 Resp 18 04/28/19 14:01 BP 153/72 H 04/28/19 11:09 Pulse Ox 91 04/28/19 14:01 Results & Data Medications Administered Acetaminophen (Tylenol) 1,000 mg PO Q8 RICHARD Stop: 05/26/19 14:14 Last Admin: 04/28/19 14:07 Dose: 1,000 mg Documented by: [id number] Admin: 04/28/19 05:42 Dose: 1,000 mg Documented by: [id number] Admin: 04/27/19 21:00 Dose: 1,000 mg Documented by: [id number] Admin: 04/27/19 13:28 Dose: 1,000 mg Documented by: [id number] Admin: 04/27/19 05:30 Dose: 1,000 mg Documented by: [id number] Admin: 04/26/19 21:27 Dose: 1,000 mg Documented by: [id number] Admin: 04/26/19 15:36 Dose: Not Given Documented by: [id number] Buspirone HCl (Buspirone Hcl) 7.5 mg PO BID [facility] Stop: 05/27/19 13:19 Last Admin: 04/28/19 09:13 Dose: 7.5 mg Documented by: [id number] Admin: 04/27/19 20:53 Dose: 7.5 mg Documented by: [id number] Admin: 04/27/19 14:08 Dose: 7.5 mg Documented by: [id number] Docusate Sodium (Colace) 100 mg PO BID [facility] Stop: 05/26/19 20:59 Last Admin: 04/28/19 09:13 Dose: 100 mg Documented by: [id number] Admin: 04/27/19 20:52 Dose: 100 mg Documented by: [id number] Admin: 04/27/19 08:48 Dose: 100 mg Documented by: [id number] Admin: 04/26/19 21:03 Dose: 100 mg Documented by: [id number] Doxycycline Hyclate (Vibramycin) 100 mg PO BID [facility] Stop: 05/05/19 09:59 Last Admin: 04/28/19 11:14 Dose: 100 mg Documented by: [id number] Gabapentin (Neurontin) 600 mg PO TID [facility] Stop: 05/27/19 13:59 Last Admin: 04/28/19 14:07 Dose: 600 mg Documented by: [id number] Admin: 04/28/19 09:13 Dose: 600 mg Documented by: [id number] Admin: 04/27/19 20:52 Dose: 600 mg Documented by: [id number] Admin: 04/27/19 14:08 Dose: 600 mg Documented by: [id number] Guaifenesin (Mucinex) 1,200 mg PO Q12 [facility] Stop: 05/27/19 13:14 Last Admin: 04/28/19 09:13 Dose: 1,200 mg Documented by: [id number] Admin: 04/27/19 20:52 Dose: 1,200 mg Documented by: [id number] Admin: 04/27/19 14:07 Dose: 1,200 mg Documented by: [id number] Acetaminophen (Ofirmev) 1,000 mg in 100 mls @ 400 mls/hr IV Q8H PRN PRN Reason: Pain or Fever Stop: 05/26/19 08:05 Last Infusion: 04/26/19 15:11 Dose: 0 mls/hr Documented by: [id number] Admin: 04/26/19 14:54 Dose: 400 mls/hr Documented by: [id number] Multivitamins 10 ml/ Thiamine HCl 100 mg/ Folic Acid 1 mg/Sodium Chloride 1,011.2 mls @ 500 mls/hr IV Q24H RICHARD Stop: 05/26/19 09:59 Last Admin: 04/28/19 09:13 Dose: 500 mls/hr Documented by: [id number] Infusion: 04/27/19 23:10 Dose: 0 mls/hr Documented by: [id number] Admin: 04/27/19 08:49 Dose: 500 mls/hr Documented by: [id number] Infusion: 04/26/19 16:25 Dose: 0 mls/hr Documented by: [id number] Admin: 04/26/19 14:50 Dose: 500 mls/hr Documented by: [id number] Ipratropium [place] (Atrovent 0.02% 0.5mg/2.5ml) 0.5 mg INH Q6R RICHARD Stop: 05/27/19 13:59 Last Admin: 04/28/19 13:59 Dose: 0.5 mg Documented by: [id number] Admin: 04/28/19 07:50 Dose: 0.5 mg Documented by: [id number] Admin: 04/28/19 01:16 Dose: 0.5 mg Documented by: [id number] Admin: 04/27/19 20:07 Dose: 0.5 mg Documented by: [id number] Admin: 04/27/19 14:45 Dose: 0.5 mg Documented by: [id number] Levalbuterol HCl (Xopenex 1.25mg/0.5ml Neb) 1.25 mg INH Q6R RICHARD Stop: 05/27/19 13:59 Last Admin: 04/28/19 13:59 Dose: 1.25 mg Documented by: [id number] Admin: 04/28/19 07:50 Dose: 1.25 mg Documented by: [id number] Admin: 04/28/19 01:16 Dose: 1.25 mg Documented by: [id number] Admin: 04/27/19 20:07 Dose: 1.25 mg Documented by: [id number] Admin: 04/27/19 14:45 Dose: 1.25 mg Documented by: [id number] Multivitamins (Multivitamin Tab) 1 tab PO QAM RICHARD Stop: 05/27/19 08:59 Last Admin: 04/28/19 09:13 Dose: 1 tab Documented by: [id number] Admin: 04/27/19 08:48 Dose: 1 tab Documented by: [id number] Oxycodone HCl (Roxicodone Immediate Rel) 5 - 10 mg PO Q4H PRN PRN Reason: Pain Stop: 05/10/19 14:14 Last Admin: 04/28/19 14:06 Dose: 5 mg Documented by: [id number] Admin: 04/28/19 10:18 Dose: 5 mg Documented by: [id number] Admin: 04/28/19 05:49 Dose: 5 mg Documented by: [id number] Admin: 04/27/19 18:06 Dose: 5 mg Documented by: [id number] Admin: 04/27/19 07:05 Dose: 5 mg Documented by: [id number] Admin: 04/26/19 23:53 Dose: 5 mg Documented by: [id number] Admin: 04/26/19 19:04 Dose: 5 mg Documented by: [id number] Rivaroxaban (Xarelto) 10 mg PO DAILY RICHARD Stop: 05/27/19 08:59 Last Admin: 04/28/19 09:13 Dose: 10 mg Documented by: [id number] Admin: 04/27/19 08:48 Dose: 10 mg Documented by: [id number] Fluticasone/Salmeterol (Advair Diskus 250/50) 1 puffs INH BID RICHARD Stop: 05/28/19 08:59 Last Admin: 04/28/19 11:13 Dose: 1 puffs Documented by: [id number] Sennosides (Senokot) 17.2 mg PO HS RICHARD Stop: 05/26/19 20:59 Last Admin: 04/27/19 20:52 Dose: 17.2 mg Documented by: [id number] Admin: 04/26/19 21:03 Dose: 17.2 mg Documented by: [id number]
[2019-04-28] MEDS: LORazepam 1 MG TAB PO PRN (17:43)
--- NOTE | 2019-04-28 20:21 | Hospitalist Progress Note ---
Date of Service April 28, 2019 Assessment & Plan (1) Femur fracture, left: distal, periprosthetic. s/p ORIF, POD #2. xarelto for DVT proph. gabapentin, pain meds. PT, OT. replace low vitamin D w/ ergocalciferol x 8 weeks. needs rehab. encouraged removal of tompkins today to avoid CAUTI. (2) Syncope: In setting of alcohol intoxication. BPs stable since admission. (3) Alcohol intoxication: Alcohol intoxication - at admission. Resolved. May have mild withdrawal but no dinora DTs. Resumed gabapentin 600 TID (takes chronically at home) - this can be used for alcohol withdrawal prevention. Ativan prn PO (stop IV). (4) Suicidal ideation: Patient voices anxiety but no depression or suicidal ideation at this time. Formal psych consult requested today. (5) Alcohol abuse: As above. Thiamine/folic acid/MVI. etoh withdrawal protocol in place. (6) Acute blood loss anemia: will need ferrous sulfate supplementation BID at d/c. would recheck CBC in am. (7) Hepatitis C: chronic, last 4 sets of LFTs all mild-moderately increased. follow. no signs/symptoms of hepatic encephalopathy. (8) COPD (chronic obstructive pulmonary disease): WITH exacerbation patient reports symptoms x 3-4 weeks. start doxy 100mg BID x 7 days. add advair 1 puff BID. cont mucinex, nebs, pulmonary toilet. would ONLY use PO steroids if she worsens or if absolutely necessary. (9) Vitamin D deficiency: ergocalciferol 73384 units weekly x 8 weeks. (10) Generalized anxiety disorder: appreciate psych consult and recommendations. (11) Constipation: dulcolax suppos x 1 now bowel maintenance w/ miralax BID thereafter (12) DVT prophylaxis: xarelto referrals out to [facility] for [facility] Subjective patient c/o ongoing chest symptoms x 3-4 weeks -- cough, congestion, wheezing; no dyspnea at rest. passing flatus; no stool. main complain is LLE pain. anxious but no worse than previous. denies any mental status changes. Review of Systems Constitutional: + fever; no chills and no anorexia Ear, Nose, Mouth, Throat: no nasal congestion Respiratory: + cough, + chest congestion and + wheezing; no dyspnea and no hemoptysis Cardiovascular: no chest pain Gastrointestinal: no abdominal pain, no nausea and no vomiting Genitourinary: refuses removal of tompkins catheter Musculoskeletal: LLE pain Psychiatric: + anxiety Physical Exam Constitutional: well developed and well nourished; no acute distress and no altered mental status ENMT: external ear and nose normal, oropharynx normal Respiratory: Auscultation: + wheezes Cardiovascular: Rate/Rhythm: regular rate and regular rhythm Heart Sounds: normal S1 and normal S2; no murmur Vessels: posterior tibial pulses present and dorsalis pedis pulses present; no JVD Gastrointestinal (Abdomen): normal bowel sounds, soft, nontender, no hepatosplenomegaly Musculoskeletal: left leg in immobilizer Psychiatric: Orientation: alert and oriented x 3 Affect: + anxious affect Results & Data Vital Signs (Past 12 Hours) Vital Signs Temp Pulse Resp BP Pulse Ox 04/28/19 19:01 95 H 16 90 04/28/19 16:59 37.9 C H 04/28/19 16:29 37.8 C H 96 H 18 131/70 95 04/28/19 14:01 101 H 18 91 04/28/19 11:09 36.8 C 87 20 153/72 H 94 Laboratory Results Laboratory Results - last 24 hr 04/28/19 05:41 25-OH Vitamin D Total 16.0 L (1) Alcohol intoxication Complication of substance-induced condition: uncomplicated Qualified Code(s): F10.920 - Alcohol use, unspecified with intoxication, uncomplicated (2) Syncope Syncope type: unspecified Qualified Code(s): R55 - Syncope and collapse (3) Hepatitis C Hepatic coma status: without hepatic coma Viral hepatitis chronicity: chronic Qualified Code(s): B18.2 - Chronic viral hepatitis C (4) COPD (chronic obstructive pulmonary disease) COPD type: unspecified COPD Qualified Code(s): J44.9 - Chronic obstructive pulmonary disease, unspecified (5) Femur fracture, left Encounter type: initial encounter Femur location: shaft Fracture alignment: displaced Fracture morphology: comminuted Fracture type: closed Qualified Code(s): S72.352A - Displaced comminuted fracture of shaft of left femur, initial encounter for closed fracture (6) Constipation Constipation type: other constipation type Qualified Code(s): K59.09 - Other constipation
[2019-04-28] MEDS: SENNA 8.6 MG TAB PO SCH (21:39)
[2019-04-29] MEDS: IPRATROPIUM BROMIDE NEB SOLN 0.02% 2.5 ML VIAL INH SCH ×4 (02:08→19:58)
[2019-04-29] MEDS: LEVALBUTEROL 1.25MG/0.5ML NEB INH SCH ×4 (02:08→19:59)
[2019-04-29] MEDS: OXYCODONE HCL IR 5 MG TAB (IMMEDIATE RELEASE) PO PRN ×4 (02:21→19:24)
[2019-04-29] MEDS: ACETAMINOPHEN 500 MG TAB PO SCH ×3 (06:07→21:25)
--- NOTE | 2019-04-29 06:20 | Orthopedic Progress Note ---
Date of Service April 29, 2019 Assessment & Plan (1) Femur fracture, left: Unfortunately she is still having a lot of pain with her left leg. She has not been ambulating well with physical therapy. She is very anxious and upset about her whole situation. I have her on Xarelto 10 mg daily for DVT prophylaxis and I will likely keep her on that for 6 weeks. I want her to stay in the knee immobilizer and I want to keep the dressing intact until I see her in the office in 2 weeks for staple removal. She is orthopedically stable for discharge to rehab facility when medically ready. She will be seen again today by the psychiatrist. We switched her Ativan to p.o. and it seems to be helping. She is currently on morphine and oxycodone for pain control. Present on Admission?: Yes Subjective Pending was seen and examined at bedside this morning. Unfortunately she is really struggling. She is having a lot of pain in her left leg. She seems very impatient about her recovery. She has not done well with physical therapy. She has been a maximum to assist. She is very anxious and adamant that she does not want to leave the hospital for another couple of days. She is currently being evaluated by psychiatry for placement in a rehab facility. Physical Exam Musculoskeletal: On physical examination of her left leg, the knee immobilizer is in place. The dressing is clean and dry. She is active dorsiflexion plantarflexion of her left ankle. Sensations intact. Results & Data Vital Signs (Past 12 Hours) Vital Signs Temp Pulse Resp BP Pulse Ox 04/29/19 02:08 96 H 20 80 L 04/28/19 23:21 37.5 C 99 H 17 124/74 91 04/28/19 21:50 36.8 C 04/28/19 19:01 95 H 16 90 (1) Femur fracture, left Encounter type: initial encounter Femur location: shaft Fracture alignment: displaced Fracture morphology: comminuted Fracture type: closed Qualified Code(s): S72.352A - Displaced comminuted fracture of shaft of left femur, initial encounter for closed fracture
[2019-04-29 06:42] LABS: Hematocrit (blood only) 26.7 % (37-47); Hemoglobin 8.9 g/dL (12.0-16.0); Mean Corpuscular Hgb Conc 33.3 g/dL (32-36); Mean Corpuscular Volume 102.7 fL (80-100); Mean Platelet Volume 9.8 fL (7.4-10.4); Platelet Count 128 K/uL (130-400); RDW Standard Deviation 52.6 fL (36.4-46.3)
[2019-04-29 07:11] LABS: Albumin Level 2.2 gm/dl (3.4-5.0); Calcium 8.4 mg/dl (8.5-10.1); Creatinine Clr Calc Pharmacy 79.9 ml/min; Est GFR (African American) 103.7; Est GFR (Non-African American) 89.4; Potassium 4.1 mmol/L (3.5-5.1)
[2019-04-29 07:14] LABS: Albumin Globulin Ratio 0.6 (0.9-2); Bilirubin,Total 1.2 mg/dl (0.2-1); Total Protein 6.2 gm/dl (6.4-8.2)
[2019-04-29] MEDS: FLUTICASONE/SALMETEROL 250/50 (ADVAIR) 14 PUFF/1 INHALER INH SCH ×2 (08:42→21:13)
[2019-04-29] MEDS: LORazepam 1 MG TAB PO PRN ×2 (08:42→21:12)
[2019-04-29] MEDS: DOCUSATE SODIUM 100 MG CAP PO SCH ×2 (08:43→21:15)
[2019-04-29] MEDS: BUSPIRONE HCL 7.5 MG TAB PO SCH ×2 (08:43→21:16)
[2019-04-29] MEDS: guaiFENesin 600 MG TABCR PO SCH ×2 (08:44→21:14)
[2019-04-29] MEDS: GABAPENTIN 600 MG TAB PO SCH ×3 (08:44→21:15)
[2019-04-29] MEDS: DOXYCYCLINE HYCLATE 100 MG CAP PO SCH ×2 (08:45→21:14)
[2019-04-29] MEDS: RIVAROXABAN 10 MG TABLET PO SCH (08:45)
[2019-04-29] MEDS: CEROVITE ADV FORMULA TAB PO SCH (08:46)
[2019-04-29] MEDS: FOLIC ACID 1 MG TAB PO SCH (08:46)
[2019-04-29] MEDS: THIAMINE HCL 100 MG TAB PO SCH ×2 (08:46→21:26)
[2019-04-29] MEDS: POLYETHYLENE (MIRALAX) 17 GM PACK PO SCH ×2 (08:47→22:41)
[2019-04-29] MEDS: FERROUS SULFATE 325 MG TAB PO SCH ×2 (10:42→16:11)
[2019-04-29] MEDS ORDERED: COUGH DROP (SUGAR FREE) LOZ 24 LOZ/1 BOX BUCCAL ONE (19:22)
--- NOTE | 2019-04-29 20:39 | Hospitalist Progress Note ---
Date of Service April 29, 2019 Assessment & Plan (1) Femur fracture, left: distal, periprosthetic. s/p ORIF, POD #3. xarelto for DVT proph. gabapentin, pain meds. PT, OT. replace low vitamin D w/ ergocalciferol x 8 weeks. very poor pain control - requiring oxy 10mg frequently. will she need a long-acting med? needs rehab at [facility]. (2) Syncope: In setting of alcohol intoxication. BPs stable since admission. Pt reports dizziness upon standing - also has this at home frequently. Check orthostatics. Consider echo. (3) Alcohol intoxication: Alcohol intoxication - at admission. Resolved. May have mild withdrawal but no dinora DTs. Cont gabapentin 600 TID (takes chronically at home) - this can be used for alcohol withdrawal prevention as well. Ativan prn PO. (4) Suicidal ideation: Patient voices severe anxiety but no depression or suicidal ideation at this time. Formal psych consult appreciated. (5) Alcohol abuse: As above. Thiamine/folic acid/MVI. etoh withdrawal protocol in place. we discussed her etoh use today - she tends to minimize its impact on her health. She uses it for pain control and sleep. We discussed the importance of abstinence. (6) Acute blood loss anemia: start ferrous sulfate 325mg BID. will need 3 months or longer. (7) Hepatitis C: chronic, last 4 sets of LFTs all mild-moderately increased. follow. no signs/symptoms of hepatic encephalopathy. (8) COPD (chronic obstructive pulmonary disease): WITH exacerbation patient reports symptoms x 3-4 weeks. cont doxy 100mg BID x 7 days. add advair 1 puff BID. cont mucinex, nebs, pulmonary toilet. she may need steroids. (9) Vitamin D deficiency: ergocalciferol 45580 units weekly x 8 weeks. (10) Generalized anxiety disorder: appreciate psych consult and recommendations. cont buspar. at d/c ativan NOT recommended. (11) Constipation: improved bowel maintenance w/ miralax BID (12) Dizziness: check orthostatics consider echo (13) DVT prophylaxis: xarelto referral out to [facility] for rehab advised AGAINST medical THC use outside the hospital in light of alcohol abuse Subjective patient very anxious during the visit. a friend was at bedside; she states "she's almost like a daughter". we talked about her alcohol use at home and how it is contributing to her health problems. she wanted to talk about her pain control and she stated "don't stop the pain meds for my leg." expresses concerns about how she can't walk and move the left leg w/o pain. she reports chronic dizziness at home and at the hospital - no vertigo but a lightheaded feeling. still coughing and wheezing. she understands that auth is pending for [facility]. they ask my opinion about medical THC. Review of Systems Constitutional: no fever and no chills Respiratory: + cough and + wheezing; no hemoptysis Cardiovascular: no chest pain Gastrointestinal: no abdominal pain, no nausea, no vomiting, no constipation (had BM yesterday) and no diarrhea/loose stools Genitourinary: no dysuria Psychiatric: + irritability and + anxiety Physical Exam Constitutional: well developed and well nourished; no acute distress and no altered mental status very anxious ENMT: external ear and nose normal, oropharynx normal Respiratory: no respiratory distress Auscultation: + wheezes (airation better today); no rales Cardiovascular: Rate/Rhythm: regular rate and regular rhythm Heart Sounds: normal S1 and normal S2; no murmur Vessels: posterior tibial pulses present and dorsalis pedis pulses present; no JVD Gastrointestinal (Abdomen): normal bowel sounds, soft, nontender, no hepatosplenomegaly Musculoskeletal: left leg in immobilizer Psychiatric: Orientation: alert and oriented x 3 Affect: + anxious affect Results & Data Vital Signs (Past 12 Hours) Vital Signs Temp Pulse Resp BP Pulse Ox 04/29/19 19:59 18 92 04/29/19 16:13 36.9 C 102 H 18 118/66 04/29/19 14:17 83 18 92 04/29/19 12:16 95 04/29/19 10:36 92 Laboratory Results Laboratory Results - last 24 hr 04/26/19 04/29/19 04/29/19 02:45 06:23 06:23 WBC 10.00 RBC 2.60 L Hgb 8.9 L Hct 26.7 L MCV 102.7 H MCH 34.2 H MCHC 33.3 RDW Std Deviation 52.6 H RDW Coeff of Jose Luis 14.0 Plt Count 128 L MPV 9.8 Sodium 139 Potassium 4.1 Chloride 107 Carbon Dioxide 27 Anion Gap 5.0 BUN 8 Creatinine 0.69 Est Cr Clr Drug Dosing 79.9 Est GFR ( Amer) 103.7 Est GFR (Non-Af Amer) 89.4 BUN/Creatinine Ratio 11.0 Glucose 119 H Calcium 8.4 L Total Bilirubin 1.2 H AST 63 H ALT 43 Alkaline Phosphatase 190 H Total Protein 6.2 L Albumin 2.2 L Globulin 4.0 Albumin/Globulin Ratio 0.6 L U Marijuana THC Carboxy 37 A (1) Alcohol intoxication Complication of substance-induced condition: uncomplicated Qualified Code(s): F10.920 - Alcohol use, unspecified with intoxication, uncomplicated (2) Syncope Syncope type: unspecified Qualified Code(s): R55 - Syncope and collapse (3) Hepatitis C Hepatic coma status: without hepatic coma Viral hepatitis chronicity: chronic Qualified Code(s): B18.2 - Chronic viral hepatitis C (4) COPD (chronic obstructive pulmonary disease) COPD type: unspecified COPD Qualified Code(s): J44.9 - Chronic obstructive pulmonary disease, unspecified (5) Femur fracture, left Encounter type: initial encounter Femur location: shaft Fracture alignment: displaced Fracture morphology: comminuted Fracture type: closed Qualified Code(s): S72.352A - Displaced comminuted fracture of shaft of left femur, initial encounter for closed fracture (6) Constipation Constipation type: other constipation type Qualified Code(s): K59.09 - Other constipation
[2019-04-29] MEDS: SENNA 8.6 MG TAB PO SCH (21:16)
[2019-04-29] MEDS: LORazepam 2 MG/4 ML VIAL IV PRN (22:41)
[2019-04-30] MEDS: OXYCODONE HCL IR 5 MG TAB (IMMEDIATE RELEASE) PO PRN ×3 (01:49→16:53)
[2019-04-30] MEDS: IPRATROPIUM BROMIDE NEB SOLN 0.02% 2.5 ML VIAL INH SCH ×5 (01:51→20:14)
[2019-04-30] MEDS: LEVALBUTEROL 1.25MG/0.5ML NEB INH SCH ×5 (01:51→20:14)
[2019-04-30] MEDS: LORazepam 2 MG/4 ML VIAL IV PRN (02:41)
[2019-04-30] MEDS: ACETAMINOPHEN 500 MG TAB PO SCH ×3 (06:15→21:17)
[2019-04-30 06:42] LABS: Basophils # (auto) 0.02 K/uL (0-0.2); Basophils % (auto) 0.3 %; Eosinophils # (auto) 0.28 K/uL (0-0.5); Eosinophils % (auto) 3.7 %; Hematocrit (blood only) 24.4 % (37-47); Hemoglobin 8.2 g/dL (12.0-16.0); Immature Granulocytes # (auto) 0.02 K/uL (0.00-0.02); Immature Granulocytes % (auto) 0.3 %; Lymphocytes % (auto) 22.5 %; Mean Corpuscular Hgb Conc 33.6 g/dL (32-36); Mean Corpuscular Volume 102.5 fL (80-100); Mean Platelet Volume 9.9 fL (7.4-10.4); Monocytes # (auto) 0.94 K/uL (0.11-0.59); Monocytes % (auto) 12.5 %; Neutrophils # (auto) 4.59 K/uL (1.4-6.5); Neutrophils % (auto) 60.7 %; Platelet Count 139 K/uL (130-400); RDW Coefficient of Variation 14.2 % (11.5-14.5); RDW Standard Deviation 52.7 fL (36.4-46.3); Red Blood Count 2.38 M/uL (4.2-5.4); White Blood Count 7.55 K/uL (4.8-10.8)
[2019-04-30] MEDS: LORazepam 1 MG TAB PO PRN (09:25)
[2019-04-30] MEDS: THIAMINE HCL 100 MG TAB PO SCH ×2 (09:26→21:18)
[2019-04-30] MEDS: CEROVITE ADV FORMULA TAB PO SCH (09:26)
[2019-04-30] MEDS: DOCUSATE SODIUM 100 MG CAP PO SCH ×2 (09:26→21:18)
[2019-04-30] MEDS: guaiFENesin 600 MG TABCR PO SCH ×2 (09:26→21:18)
[2019-04-30] MEDS: GABAPENTIN 600 MG TAB PO SCH ×3 (09:26→21:18)
[2019-04-30] MEDS: DOXYCYCLINE HYCLATE 100 MG CAP PO SCH ×2 (09:27→21:17)
[2019-04-30] MEDS: POLYETHYLENE (MIRALAX) 17 GM PACK PO SCH ×2 (09:27→21:22)
[2019-04-30] MEDS: BUSPIRONE HCL 7.5 MG TAB PO SCH (09:27)
[2019-04-30] MEDS: FLUTICASONE/SALMETEROL 250/50 (ADVAIR) 14 PUFF/1 INHALER INH SCH ×2 (09:27→21:17)
[2019-04-30] MEDS: RIVAROXABAN 10 MG TABLET PO SCH (09:27)
[2019-04-30] MEDS: FOLIC ACID 1 MG TAB PO SCH (09:27)
[2019-04-30] MEDS: FERROUS SULFATE 325 MG TAB PO SCH ×2 (09:28→16:53)
[2019-04-30] MEDS: PANTOprazole 40 MG TAB PO SCH (10:24)
[2019-04-30] MEDS ORDERED: SODIUM CHLORIDE 0.9% 250 ML IV PRN (16:48)
[2019-04-30] MEDS ORDERED: BUSPIRONE HCL 10 MG TAB PO SCH (21:00)
[2019-04-30] MEDS: SENNA 8.6 MG TAB PO SCH (21:18)
--- NOTE | 2019-04-30 21:38 | Hospitalist Progress Note ---
Date of Service April 30, 2019 Assessment & Plan (1) Femur fracture, left: distal, periprosthetic. s/p ORIF, POD #4. xarelto for DVT proph. gabapentin, pain meds prn. PT, OT. replace low vitamin D w/ ergocalciferol x 8 weeks. very poor pain control - requiring oxy 10mg frequently. poor candidate for long-acting pain meds due to h/o alcohol abuse. needs rehab at [facility]. (2) Syncope: In setting of alcohol intoxication. BPs stable since admission. Pt reports dizziness upon standing - also has this at home frequently. Anemia making this worse- Tx 1 unit PRBCs. Repeat H/H am. (3) Alcohol intoxication: Alcohol intoxication - at admission. Resolved. May have had mild withdrawal but no dinora DTs. Cont gabapentin 600 TID (takes chronically at home). Ativan prn but patient wanting this frequently (and seems to want to be knocked out in the setting of her 's ). Explained to patient to use the ativan for anxiety but that we cannot "knock" her out to dull the pain of the bad news. Staff aware of this issue. (4) Suicidal ideation: Patient voices severe anxiety and thoughts of dying. No plan voiced to me but clearly wanting us to give her ativan/narcotics at same time to "knock" her out. This is obviously very concerning. Psych has seen - needs to be re-evaluated. Staff very aware of these issues. May need 1:1. (5) Grieving: due to of (6) Alcohol abuse: As above. Thiamine/folic acid/MVI. etoh withdrawal protocol in place. needs to abstain counseled about this several times this week (7) Acute blood loss anemia: 2nd to surgery/bleeding into left leg at time of fracture. ferrous sulfate 325mg BID. will need 3 months or longer. in light of dizziness/lightheadedness -- give 1 unit PRBCs today. repeat CBC in am. (8) Hepatitis C: chronic, last 4 sets of LFTs all mild-moderately increased. follow. no signs/symptoms of hepatic encephalopathy. low threshold to check ammonia if any worsening. (9) COPD (chronic obstructive pulmonary disease): WITH exacerbation patient reports symptoms x 3-4 weeks. cont doxy 100mg BID x 7 days. cont advair 1 puff BID. cont mucinex, nebs, pulmonary toilet. she may need steroids but defer for now. (10) Vitamin D deficiency: ergocalciferol 15968 units weekly x 8 weeks. (11) Generalized anxiety disorder: appreciate psych consult and recommendations. cont buspar -- increase to 10mg BID. anxiety now much worse due to 's sudden -- ask psych to re-eval. (12) Constipation: improved bowel maintenance w/ miralax BID (13) Dizziness: transfuse 1 unit PRBCs had nearly 6gm drop in hemoglobin this admission from acute blood loss anemia (14) DVT prophylaxis: xareluma referral out to [facility] for rehab Subjective Patient found out that her unexpectedly last evening. He was found passed out in his bed. Since finding out she has been extremely tearful, anxious, commenting that she is "not far behind him" (meaning she is going to ), and has made comments to staff that she wants to . During my visit she was mildly confused and her sentences at times were not making sense. She was begging me to "give her the ativan and pain medication". Staff report she has had severe LLE pain all day and with any ambulation/standing she is very dizzy/lightheaded. Denied any dyspnea or abdominal pain. Offered to call a manufactured buildings repairer/abalone diver to provide support - she and her have attended jain services - but she could not make up her mind about this. Review of Systems Constitutional: no fever Respiratory: + cough; no dyspnea Cardiovascular: no chest pain Gastrointestinal: no abdominal pain, no nausea and no vomiting Psychiatric: + hopelessness, + irritability, + suicidal ideation, + anxiety and + panic attacks; no hallucinations Physical Exam Constitutional: well developed, well nourished, + acute distress (having panic attack, hyperventilating, stridor due to hyperventilating) and + altered mental status ENMT: external ear and nose normal, oropharynx normal Respiratory: no respiratory distress Auscultation: + wheezes (minimal); no rales Cardiovascular: Rate/Rhythm: regular rate and regular rhythm Heart Sounds: normal S1 and normal S2; no murmur Vessels: posterior tibial pulses present and dorsalis pedis pulses present; no JVD Gastrointestinal (Abdomen): normal bowel sounds, soft, nontender, no hepatosplenomegaly Musculoskeletal: Extremities: + lower leg abnormality Left (leg in immobilizer) Psychiatric: Orientation: alert; + not oriented x 3 Affect: + anxious affect, + tearful affect and + labile affect Results & Data Vital Signs (Past 12 Hours) Vital Signs Temp Pulse Pulse Pulse Resp BP BP 04/30/19 21:15 36.7 C 82 17 113/72 04/30/19 20:43 37.0 C 78 16 110/60 04/30/19 20:14 83 18 04/30/19 20:13 37.1 C 80 17 141/74 H 04/30/19 19:58 37.0 C 80 16 112/69 04/30/19 19:53 37.9 C H 83 16 94/61 L 04/30/19 19:41 37.6 C H 78 16 115/70 04/30/19 16:01 36.9 C 85 18 113/66 04/30/19 14:18 71 18 Pulse Ox 04/30/19 21:15 100 04/30/19 20:43 100 04/30/19 20:14 99 04/30/19 20:13 99 04/30/19 19:58 99 04/30/19 19:53 98 04/30/19 19:41 90 04/30/19 16:01 90 04/30/19 14:18 96 Laboratory Results Laboratory Results - last 24 hr 04/30/19 04/30/19 06:03 16:58 WBC 7.55 RBC 2.38 L Hgb 8.2 L Hct 24.4 L MCV 102.5 H MCH 34.5 H MCHC 33.6 RDW Std Deviation 52.7 H RDW Coeff of Jose Luis 14.2 Plt Count 139 MPV 9.9 Immature Gran % (Auto) 0.3 Neut % (Auto) 60.7 Lymph % (Auto) 22.5 [place] % (Auto) 12.5 Eos % (Auto) 3.7 Baso % (Auto) 0.3 Immature Gran # (Auto) 0.02 Neut # (Auto) 4.59 Lymph # (Auto) 1.70 [place] # (Auto) 0.94 H Eos # (Auto) 0.28 Baso # (Auto) 0.02 Blood Type O Positive Antibody Screen NEGATIVE Crossmatch See Detail (1) Alcohol intoxication Complication of substance-induced condition: uncomplicated Qualified Code(s): F10.920 - Alcohol use, unspecified with intoxication, uncomplicated (2) Syncope Syncope type: unspecified Qualified Code(s): R55 - Syncope and collapse (3) Hepatitis C Hepatic coma status: without hepatic coma Viral hepatitis chronicity: chronic Qualified Code(s): B18.2 - Chronic viral hepatitis C (4) COPD (chronic obstructive pulmonary disease) COPD type: unspecified COPD Qualified Code(s): J44.9 - Chronic obstructive pulmonary disease, unspecified (5) Femur fracture, left Encounter type: initial encounter Femur location: shaft Fracture alignment: displaced Fracture morphology: comminuted Fracture type: closed Qualified Code(s): S72.352A - Displaced comminuted fracture of shaft of left femur, initial encounter for closed fracture (6) Constipation Constipation type: other constipation type Qualified Code(s): K59.09 - Other constipation
[2019-05-01] MEDS: LEVALBUTEROL 1.25MG/0.5ML NEB INH SCH ×4 (02:37→19:24)
[2019-05-01] MEDS: IPRATROPIUM BROMIDE NEB SOLN 0.02% 2.5 ML VIAL INH SCH ×4 (02:37→19:24)
[2019-05-01] MEDS: OXYCODONE HCL IR 5 MG TAB (IMMEDIATE RELEASE) PO PRN ×4 (02:46→20:23)
[2019-05-01 05:59] LABS: Basophils # (auto) 0.02 K/uL (0-0.2); Basophils % (auto) 0.4 %; Eosinophils # (auto) 0.21 K/uL (0-0.5); Eosinophils % (auto) 4.1 %; Hematocrit (blood only) 28.9 % (37-47); Hemoglobin 9.6 g/dL (12.0-16.0); Immature Granulocytes # (auto) 0.01 K/uL (0.00-0.02); Immature Granulocytes % (auto) 0.2 %; Lymphocytes # (auto) 1.16 K/uL (1.2-3.4); Lymphocytes % (auto) 22.7 %; Mean Corpuscular Hgb Conc 33.2 g/dL (32-36); Mean Corpuscular Volume 101.4 fL (80-100); Mean Platelet Volume 9.6 fL (7.4-10.4); Monocytes # (auto) 0.74 K/uL (0.11-0.59); Monocytes % (auto) 14.5 %; Neutrophils # (auto) 2.97 K/uL (1.4-6.5); Neutrophils % (auto) 58.1 %; Platelet Count 131 K/uL (130-400); RDW Coefficient of Variation 16.5 % (11.5-14.5); RDW Standard Deviation 60.8 fL (36.4-46.3); Red Blood Count 2.85 M/uL (4.2-5.4); White Blood Count 5.11 K/uL (4.8-10.8)
[2019-05-01] MEDS: ACETAMINOPHEN 500 MG TAB PO SCH ×3 (06:21→20:24)
[2019-05-01 06:25] LABS: BUN Creatinine Ratio 13.5 (10-20); Calcium 8.3 mg/dl (8.5-10.1); Creatinine Clr Calc Pharmacy 91.9 ml/min; Est GFR (African American) 108.5; Est GFR (Non-African American) 93.7; Potassium 4.2 mmol/L (3.5-5.1)
[2019-05-01] MEDS: FERROUS SULFATE 325 MG TAB PO SCH ×2 (08:41→17:48)
[2019-05-01] MEDS: FLUTICASONE/SALMETEROL 250/50 (ADVAIR) 14 PUFF/1 INHALER INH SCH ×2 (08:42→20:25)
[2019-05-01] MEDS: DOCUSATE SODIUM 100 MG CAP PO SCH ×2 (08:42→20:25)
[2019-05-01] MEDS: FOLIC ACID 1 MG TAB PO SCH (08:43)
[2019-05-01] MEDS: guaiFENesin 600 MG TABCR PO SCH ×2 (08:43→20:25)
[2019-05-01] MEDS: CEROVITE ADV FORMULA TAB PO SCH (08:43)
[2019-05-01] MEDS: GABAPENTIN 600 MG TAB PO SCH ×3 (08:43→20:24)
[2019-05-01] MEDS: PANTOprazole 40 MG TAB PO SCH (08:44)
[2019-05-01] MEDS: RIVAROXABAN 10 MG TABLET PO SCH (08:44)
[2019-05-01] MEDS: THIAMINE HCL 100 MG TAB PO SCH ×2 (08:44→20:25)
[2019-05-01] MEDS: POLYETHYLENE (MIRALAX) 17 GM PACK PO SCH ×2 (08:45→20:23)
[2019-05-01] MEDS: LORazepam 1 MG TAB PO PRN ×2 (08:47→16:26)
--- NOTE | 2019-05-01 10:14 | Psychiatric Progress Note ---
Date of Service May 01, 2019 Impression / Recommendations Impression 68-year-old female admitted medically due to a left femur fracture having received orthopedic surgery for correction on 04/26/19. Psychiatric consultation placed due to worsening anxiety, and initial evaluation was completed on 04/28/19. Buspirone has been increased to 10mg BID and lorazepam is in the process of being tapered. Pt learned of the unexpected demise of her on 04/29/19, while the patient was here in the hospital. We were requested to reassess the patient due to statements suggestive of suicidality following her 's . Patient is rightfully overwhelmed, and having difficulty processing these unexpected events. She is requesting material on how to handle grief, which will be provided from [facility] resources. Patient had denied to this provider suicidality as well as plan or intention to harm herself or attempt to end her life. She states that this is not something she would consider, though admits that she will likely have some difficulty processing what has happened. Patient is future oriented during conversation, appears to be well supported by her sons, and states multiple reasons to keep living. It will certainly be worth routinely assessing the patient during her bereavement, but based off of presentation today she does not appear to be at acute risk of harm to self. Presently, there is no indication for inpatient psychiatric treatment prior to discharge to a physical rehabilitation facility. We will continue to follow and offer support, and readdress recommendations as necessary. Given events, it does seem appropriate to be somewhat more liberal with dosing of lorazepam. Certainly would be more cautious with use if patient is appearing sedated or is verbalizing a desire to blunt her emotions. Reviewed with patient that this may be considered in the short-term, but overall treatment goal will be for lorazepam to be tapered, ideally to discontinuation, prior to discharge. We reviewed ability to further titrate buspirone to target current anxiety, which will likely be ongoing during the bereavement process. Would consider titrating to 10 mg 3 times daily presently, there is ability to adjust to twice daily dosing on an outpatient basis if prefers. Dr. Riki Liang was directly involved in review and discussion of the patient's case and participated in medical decision making regarding treatment recommendations. Interval History Identifying Information 68-year-old female admitted medically on 04/26/19 due to left leg pain, s/p fall. Pt found to have distal fracture of left femur, and received orthopedic surgery on 04/26/19. Psychiatric consultation was completed on 04/28/19 to assess for worsening anxiety. Re-evaluation requested, as patient recently learned of 's unexpected demise. Pt has made statements suggestive of SI, psychiatric assessment was requested to evaluate further. Chief Complaint "I'm rough. The biggest thing is I lost my - I don't know how to handle it." Review of Systems Notes Constitutional: reports restlessness and anxiety Cardiovascular: denied Respiratory: denied Gastrointestinal: denied Neurological: denied Psychiatric: denies symptoms other than stated above Total of at least 10 systems reviewed, pertinent positives as above and in HPI. Subjective Subjective 68-year-old female admitted medically due to a left femur fracture having received orthopedic surgery for correction on 04/26/19. Psychiatric consultation placed due to worsening anxiety. Pt was seen for initial consultation on 04/28/19, but Dr. Jennings, family practice resident - and was reviewed with Dr. Bazan, psychiatrist. Recommendations were made to titration buspirone to 10mg BID and plan a taper of lorazepam with use of hydroxyzine as needed to manage anxiety. Patient's case has been reviewed daily with liaison, and re-evaluation was requested today due to patient's concerning reports of desiring to be "knocked out" with medications after learning of the unexpected of her . Nursing notes suggest patient has been emotional during conversations, but had not reported SI. The evening of 04/30/19, nursing notes suggest the patient had been emotional, and was concerned about going home. Pt was quoted to have said, "I'm going to go with him []." When asked about SI, it is documented the patient stated, "kind of but not really." When queried about specific plan to hurt herself, she was quoted as saying, "not really, but I am having thoughts." We received request from attending physician to re-evaluate today. Discharge plan presently is for transfer to an inpatient physical rehab facility s/p orthopedic surgery. Pt was seen today to assess progress since admission, and evaluate patient for s tatements suggestive of suicidality. Patient does admit that she is having a rough time, as she is not sure how to handle the of her . She states that she does not have any when she can speak to about the situation, she does not have parents, grandparents, or siblings. Presently, she states that her son is handling affairs and is keeping her updated. Patient states to this provider "why did he do that?" Patient shares that they believe that her 's demise was caused by an AR, and was in no way expected. Patient does request any available information on grief and processing loss. She also requests to speak with "anyone who has been through this before." Patient was asked about current thoughts running through her head, and she states "everything." Patient was asked specifically about suicidal ideation, which she denied by saying "never." Patient admits to - "I do not know how to keep going", but denies any active thoughts or intentions to harm herself or end her life. Patient states "there is too little time, I can see that. I want to watch my grandkids grow up, I want to be around." Patient does state "we are both questions, I know that we will be together again some day." Patient states that her son has been in communication with her, and she believes he will provide a safe environment for her to return home to when she is discharged from rehab. Current requests from our service is for grief information and "higher dose of the lorazepam." Patient states that it is effective for "allowing me to watch TV and not have all these racing thoughts." Discussed with patient that, although grief is difficult, it would not be beneficial to blunted her emotions entirely. Patient was informed that lorazepam would not be provided if she was appearing sedated. We discussed that it may be beneficial in the short-term for bereavement, but overall treatment plan to taper and discontinue the medication would remain in place. She was agreeable to titrating buspirone to target anxiety as well. Patient was informed that we would continue to follow, and provide materials and grief support information for her use. Procedures Performed Operation Date: 04/26/19 09:30 Actual Procedures p Intermedullary Nailing Left Distal Femur Fracture(Left) - Brady Hernandez, DO Physical Exam Psychiatric Orientation: alert, oriented x 3 and cooperative Apperance: appropriately dressed (In hospital gown) and appropriately groomed Eye Contact: + fair eye contact (Moments of direct eye contact, some prolonged periods of looking out window) Motor Behavior: no abnormal motor movements (Observed while laying in bed) Speech: normal rate/rhythm/volume of speech Affect: + depressed affect and + tearful affect Mood: + depressed mood and + anxious mood "I am rough" Thought Process: goal directed thought process and clear/coherent thought process Thought Content: reality based without delusions Suicidal Thoughts: denies suicidal thoughts and denies suicidal plan Homicidal Thoughts: denies homicidal thoughts Hallucinations: no auditory hallucinations and no visual hallucinations Cognition: remote memory grossly intact, attention grossly intact and language grossly intact Estimated Intelligence: consistent with education level Insight: + fair insight Judgement: + fair judgement Vital Signs (Past 24 Hours) Last Vital Signs Temp 37.0 C 05/01/19 06:56 Pulse 86 05/01/19 07:30 Resp 14 05/01/19 07:30 BP 129/77 05/01/19 06:56 Pulse Ox 98 05/01/19 07:30 Results & Data Laboratory Results Laboratory Results - last 24 hr 04/30/19 05/01/19 05/01/19 16:58 05:38 05:38 WBC 5.11 RBC 2.85 L Hgb 9.6 L Hct 28.9 L MCV 101.4 H MCH 33.7 MCHC 33.2 RDW Std Deviation 60.8 H RDW Coeff of Jose Luis 16.5 H Plt Count 131 MPV 9.6 Immature Gran % (Auto) 0.2 Neut % (Auto) 58.1 Lymph % (Auto) 22.7 [place] % (Auto) 14.5 Eos % (Auto) 4.1 Baso % (Auto) 0.4 Immature Gran # (Auto) 0.01 Neut # (Auto) 2.97 Lymph # (Auto) 1.16 L [place] # (Auto) 0.74 H Eos # (Auto) 0.21 Baso # (Auto) 0.02 Sodium 138 Potassium 4.2 Chloride 106 Carbon Dioxide 29 Anion Gap 3.0 BUN 8 Creatinine 0.60 Est Cr Clr Drug Dosing 91.9 Est GFR ( Amer) 108.5 Est GFR (Non-Af Amer) 93.7 BUN/Creatinine Ratio 13.5 Glucose 108 H Calcium 8.3 L Blood Type O Positive Antibody Screen NEGATIVE Crossmatch See Detail Current Inpatient Medications Current Inpatient Medications: Current Inpatient Medications Acetaminophen (Tylenol) 1,000 mg PO Q8 [facility] Stop: 05/26/19 14:14 Last Admin: 05/01/19 06:21 Dose: 1,000 mg Documented by: Bisacodyl (Dulcolax) 10 mg NM DAILY PRN PRN Reason: Constipation Stop: 05/26/19 14:14 Buspirone HCl (Buspar) 10 mg PO BID [facility] Stop: 05/30/19 20:59 Last Admin: 05/01/19 08:42 Dose: 10 mg Documented by: Docusate Sodium (Colace) 100 mg PO BID [facility] Stop: 05/26/19 20:59 Last Admin: 05/01/19 08:42 Dose: 100 mg Documented by: Doxycycline Hyclate (Vibramycin) 100 mg PO BID [facility] Stop: 05/05/19 09:59 Last Admin: 04/30/19 21:17 Dose: 100 mg Documented by: Ferrous Sulfate (Feosol) 325 mg PO BIDM [facility] Stop: 05/29/19 10:59 Last Admin: 05/01/19 08:41 Dose: 325 mg Documented by: Folic Acid (Folvite) 1 mg PO QAM [facility] Stop: 05/29/19 08:59 Last Admin: 05/01/19 08:43 Dose: 1 mg Documented by: Gabapentin (Neurontin) 600 mg PO TID [facility] Stop: 05/27/19 13:59 Last Admin: 05/01/19 08:43 Dose: 600 mg Documented by: Guaifenesin (Mucinex) 1,200 mg PO Q12 [facility] Stop: 05/27/19 13:14 Last Admin: 05/01/19 08:43 Dose: 1,200 mg Documented by: Sodium Chloride (Nss) 250 mls @ 15 mls/hr IV .[id number] PRN PRN Reason: For Transfusion Stop: 05/30/19 16:47 Ipratropium [place] (Atrovent 0.02% 0.5mg/2.5ml) 0.5 mg INH Q6R [facility] Stop: 05/27/19 13:59 Last Admin: 05/01/19 07:30 Dose: 0.5 mg Documented by: Levalbuterol HCl (Xopenex 1.25mg/0.5ml Neb) 1.25 mg INH Q6R [facility] Stop: 05/27/19 13:59 Last Admin: 05/01/19 07:30 Dose: 1.25 mg Documented by: Lorazepam (Ativan) 1 mg PO Q4H PRN PRN Reason: Anxiety/Agitation Stop: 05/28/19 13:34 Last Admin: 05/01/19 08:47 Dose: 1 mg Documented by: Magnesium Hydroxide (Milk Of Magnesia) 30 ml PO Q6H PRN PRN Reason: Constipation Stop: 05/26/19 14:14 Metoclopramide HCl (Reglan) 10 mg IV Q6H PRN PRN Reason: Nausea And Vomiting Stop: 05/26/19 14:14 Multivitamins/Minerals (Multivitamin W/ Minerals Tab) [facility] [place]: 05/29/19 08:59 Last Admin: 05/01/19 08:43 Dose: 1 tab Documented by: Naloxone HCl (Narcan) 0.1 mg IV Q5M PRN PRN Reason: Oversedation/Resp Depression Stop: 05/26/19 14:14 Ondansetron HCl (Zofran) 4 mg IV Q6H PRN PRN Reason: Nausea Stop: 05/26/19 08:05 Oxycodone HCl (Roxicodone Immediate Rel) 5 - 10 mg PO Q4H PRN PRN Reason: Pain Stop: 05/10/19 14:14 Last Admin: 05/01/19 02:46 Dose: 10 mg Documented by: Pantoprazole Sodium (Protonix) 40 mg PO QAM [facility] Stop: 05/03/19 09:01 Last Admin: 05/01/19 08:44 Dose: 40 mg Documented by: Polyethylene Glycol (Miralax Powder Packet) 17 gm PO BID [facility] Stop: 05/29/19 08:59 Last Admin: 05/01/19 08:45 Dose: Not Given Documented by: Rivaroxaban (Xarelto) 10 mg PO DAILY [facility] Stop: 05/27/19 08:59 Last Admin: 05/01/19 08:44 Dose: 10 mg Documented by: Fluticasone/Salmeterol (Advair Diskus 250/50) 1 puffs INH BID [facility] Stop: 05/28/19 08:59 Last Admin: 05/01/19 08:42 Dose: 1 puffs Documented by: Sennosides (Senokot) 17.2 mg PO HS [facility] Stop: 05/26/19 20:59 Last Admin: 04/30/19 21:18 Dose: 17.2 mg Documented by: Thiamine HCl (Vitamin B-1) 200 mg PO BID [facility] Stop: 05/29/19 08:59 Last Admin: 05/01/19 08:44 Dose: 200 mg Documented by: CPT Code CPT Code 27532
[2019-05-01] MEDS: DOXYCYCLINE HYCLATE 100 MG CAP PO SCH ×2 (10:20→20:25)
--- NOTE | 2019-05-01 15:38 | Orthopedic Progress Note ---
Date of Service May 01, 2019 Assessment & Plan (1) Femur fracture, left: Unfortunately she is really been struggling with her left knee. We will continue the narcotic medications and the Ativan to help. She is going to be nonweightbearing for at least 6 weeks. I want her to stay in the knee immobilizer and I want the dressing to stay unchanged until she follows up with me in the office in 2 weeks. She is on Xarelto 10 mg daily for DVT prophylaxis. I spoken to the medicine team and about her personally. She will stay on their service. I gave her my condolences as far as her 's passing and assured her that the psychiatrist will continue to help. She is orthopedically stable for discharge when medically ready. Present on Admission?: Yes Subjective Pending was seen and examined at bedside today. Unfortunately she still really struggling with her left knee. She has been using narcotics as well as Ativan to help. She is still having difficulty with physical therapy. She is very anxious. Her 2 days ago and she is been grieving because of that as well. Psychiatry has been treating her. Physical Exam Musculoskeletal: On physical examination of the left knee, the knee immobilizer is intact. She is active dorsiflexion plantarflexion of the left ankle. Sensations intact throughout. Results & Data Vital Signs (Past 12 Hours) Vital Signs Temp Pulse Pulse Resp BP Pulse Ox 05/01/19 15:05 36.9 C 77 17 124/69 100 05/01/19 07:30 86 14 98 05/01/19 06:56 37.0 C 81 18 129/77 92 (1) Femur fracture, left Encounter type: initial encounter Femur location: shaft Fracture alignment: displaced Fracture morphology: comminuted Fracture type: closed Qualified Code(s): S72.352A - Displaced comminuted fracture of shaft of left femur, initial encounter for closed fracture
[2019-05-01] MEDS: SENNA 8.6 MG TAB PO SCH (20:24)
[2019-05-01] MEDS: BUSPIRONE HCL 10 MG TAB PO SCH (20:26)
[2019-05-01] MEDS ORDERED: predniSONE 20 MG TAB PO STA (20:35)
--- NOTE | 2019-05-01 20:43 | Hospitalist Progress Note ---
Date of Service May 01, 2019 Assessment & Plan (1) Femur fracture, left: periprosthetic, pod #5 s/p ORIF by Dr Hernandez. xarelto - DVT proph. pain control - oxycodone. NWB status to LLE. I spoke with Dr Hernandez re: pt's injury to the left leg today. He is aware of that event - nothing to do at this time per Dr Hernandez. (2) Hepatitis C: no evidence of hepatic encephalopathy. recent LFTs high - likely due to alcohol - have improved. repeat in AM for stability. needs to abstain from alcohol. Present on Admission?: Yes (3) COPD exacerbation: ongoing despite 4 days of doxy, nebs, advair, mucinex, incentive spirometry. spoke with Dr Hernandez - ok to use steroids. start prednisone 40mg daily. (4) Alcohol abuse: likely mild etoh withdrawal while here. continue gabapentin TID continue ativan prn MVI, thiamine 200 BID, folic acid (5) Anxiety: severe also now with grieving from loss of (he Wed night in his sleep at their home) asked psych to re-eval -- they have increased buspar to TID dosing (6) Acute blood loss anemia: 6 gm drop this admission s/p 1 unit PRBCs yesterday improved H/H today on Fe sulfate 325mg BID (7) Vitamin D deficiency: ergocalciferol 83880 units weekly x 8 weeks received first dose this week (8) Grieving: due to loss of supportive therapy given to patient today appreciate psych consult/recs/support (9) Constipation: cont miralax and senna for bowel maintenance in setting of poor mobility and narcotic use (10) DVT prophylaxis: xarelto awaiting [facility] for [place] patient is a "target" due to psych history - awaiting completion of that process Subjective patient again reports ongoing anxiety surrounding the of her . "don't take away my ativan" - she states. she mentions that earlier this afternoon she was working with PT and ac cidentally slammed her LLE on the ground. since then she has had worsening pain superior to the left knee. still with cough, wheezing, and dyspnea despite doxy/nebs/etc. denies suicidal ideation. eating well --- 100% of meals. Review of Systems Constitutional: + fatigue; no fever, no chills and no anorexia Respiratory: + cough, + sputum production and + wheezing; no hemoptysis Cardiovascular: no chest pain Gastrointestinal: no abdominal pain, no nausea, no vomiting, no constipation and no diarrhea/loose stools Musculoskeletal: as per Subjective / HPI Physical Exam Constitutional: still very anxious, breathing rapidly/panic attack type behavior like yesterday ENMT: external ear and nose normal, oropharynx normal Respiratory: no respiratory distress Auscultation: + wheezes (extensive); no rales Cardiovascular: Rate/Rhythm: regular rate and regular rhythm Heart Sounds: normal S1 and normal S2; no murmur Vessels: posterior tibial pulses present and dorsalis pedis pulses present; no JVD Gastrointestinal (Abdomen): normal bowel sounds, soft, nontender, no hepatosplenomegaly Musculoskeletal: Extremities: + lower leg abnormality (immobilizer in place on left ) Psychiatric: Orientation: alert Affect: + anxious affect and + tearful affect Results & Data Vital Signs (Past 12 Hours) Vital Signs Temp Pulse Pulse Resp BP Pulse Ox 05/01/19 19:26 87 20 98 05/01/19 15:45 84 18 95 05/01/19 15:05 36.9 C 77 17 124/69 100 Laboratory Results Laboratory Results - last 24 hr 04/30/19 05/01/19 05/01/19 16:58 05:38 05:38 WBC 5.11 RBC 2.85 L Hgb 9.6 L Hct 28.9 L MCV 101.4 H MCH 33.7 MCHC 33.2 RDW Std Deviation 60.8 H RDW Coeff of Jose Luis 16.5 H Plt Count 131 MPV 9.6 Immature Gran % (Auto) 0.2 Neut % (Auto) 58.1 Lymph % (Auto) 22.7 [place] % (Auto) 14.5 Eos % (Auto) 4.1 Baso % (Auto) 0.4 Immature Gran # (Auto) 0.01 Neut # (Auto) 2.97 Lymph # (Auto) 1.16 L [place] # (Auto) 0.74 H Eos # (Auto) 0.21 Baso # (Auto) 0.02 Sodium 138 Potassium 4.2 Chloride 106 Carbon Dioxide 29 Anion Gap 3.0 BUN 8 Creatinine 0.60 Est Cr Clr Drug Dosing 91.9 Est GFR ( Amer) 108.5 Est GFR (Non-Af Amer) 93.7 BUN/Creatinine Ratio 13.5 Glucose 108 H Calcium 8.3 L Crossmatch See Detail (1) Femur fracture, left Encounter type: initial encounter Femur location: shaft Fracture alignment: displaced Fracture morphology: comminuted Fracture type: closed Qualified Code(s): S72.352A - Displaced comminuted fracture of shaft of left femur, initial encounter for closed fracture (2) Hepatitis C Viral hepatitis chronicity: chronic Hepatic coma status: without hepatic coma Qualified Code(s): B18.2 - Chronic viral hepatitis C (3) Constipation Constipation type: other constipation type Qualified Code(s): K59.09 - Other constipation
[2019-05-02] MEDS: OXYCODONE HCL IR 5 MG TAB (IMMEDIATE RELEASE) PO PRN ×6 (00:33→22:42)
[2019-05-02] MEDS: IPRATROPIUM BROMIDE NEB SOLN 0.02% 2.5 ML VIAL INH SCH ×2 (02:00→07:59)
[2019-05-02] MEDS: LEVALBUTEROL 1.25MG/0.5ML NEB INH SCH ×2 (02:00→07:59)
[2019-05-02] MEDS: LORazepam 1 MG TAB PO PRN ×5 (02:17→21:17)
[2019-05-02 06:13] LABS: Hematocrit (blood only) 33.9 % (37-47); Hemoglobin 11.1 g/dL (12.0-16.0); Mean Corpuscular Hgb Conc 32.7 g/dL (32-36); Mean Corpuscular Volume 101.8 fL (80-100); Mean Platelet Volume 10.3 fL (7.4-10.4); Platelet Count 176 K/uL (130-400); RDW Coefficient of Variation 16.3 % (11.5-14.5); RDW Standard Deviation 60.4 fL (36.4-46.3); Red Blood Count 3.33 M/uL (4.2-5.4); White Blood Count 6.21 K/uL (4.8-10.8)
[2019-05-02] MEDS: ACETAMINOPHEN 500 MG TAB PO SCH (06:31)
[2019-05-02 06:42] LABS: Albumin Level 2.2 gm/dl (3.4-5.0); BUN Creatinine Ratio 14.6 (10-20); Creatinine Clr Calc Pharmacy 82.3 ml/min; Est GFR (African American) 104.7; Est GFR (Non-African American) 90.3; Potassium 4.6 mmol/L (3.5-5.1)
[2019-05-02 06:45] LABS: Albumin Globulin Ratio 0.5 (0.9-2); Globulin 4.9 gm/dl (2.5-4.0); Total Protein 7.1 gm/dl (6.4-8.2)
[2019-05-02] MEDS: RIVAROXABAN 10 MG TABLET PO SCH (08:13)
[2019-05-02] MEDS: FLUTICASONE/SALMETEROL 250/50 (ADVAIR) 14 PUFF/1 INHALER INH SCH ×2 (08:13→21:09)
[2019-05-02] MEDS: FERROUS SULFATE 325 MG TAB PO SCH ×2 (08:14→16:51)
[2019-05-02] MEDS: THIAMINE HCL 100 MG TAB PO SCH ×2 (08:14→21:14)
[2019-05-02] MEDS: DOXYCYCLINE HYCLATE 100 MG CAP PO SCH ×2 (08:14→21:14)
[2019-05-02] MEDS: FOLIC ACID 1 MG TAB PO SCH (08:14)
[2019-05-02] MEDS: GABAPENTIN 600 MG TAB PO SCH ×3 (08:15→21:13)
[2019-05-02] MEDS: POLYETHYLENE (MIRALAX) 17 GM PACK PO SCH ×2 (08:15→21:05)
[2019-05-02] MEDS: PANTOprazole 40 MG TAB PO SCH (08:15)
[2019-05-02] MEDS: guaiFENesin 600 MG TABCR PO SCH ×2 (08:15→21:13)
[2019-05-02] MEDS: DOCUSATE SODIUM 100 MG CAP PO SCH ×2 (08:15→21:07)
[2019-05-02] MEDS: CEROVITE ADV FORMULA TAB PO SCH (08:15)
[2019-05-02] MEDS: BUSPIRONE HCL 10 MG TAB PO SCH (09:35)
[2019-05-02] MEDS: IPRATROPIUM BROMIDE/ALBUTEROL respimat INH INH SCH ×3 (13:56→21:11)
[2019-05-02] MEDS: predniSONE 20 MG TAB PO SCH (18:04)
--- NOTE | 2019-05-02 18:51 | Hospitalist Progress Note ---
Date of Service May 02, 2019 Assessment & Plan (1) Femur fracture, left: periprosthetic, pod #6 s/p ORIF by Dr Hernandez. xarelto - DVT proph. pain control - oxycodone. NWB status to LLE. (2) Hepatitis C: no evidence of hepatic encephalopathy. recent LFTs high - likely due to alcohol - have improved. needs to abstain from alcohol. repeat LFTs in 48 hours. (3) COPD exacerbation: IMPROVED s/p steroids yesterday. cont steroids 40mg daily. cont doxy, nebs, advair, mucinex, incentive spirometry. day #5 of 7 of doxy (4) Alcohol abuse: likely mild etoh withdrawal while here. continue gabapentin TID continue ativan prn MVI, thiamine 200 BID, folic acid withdrawal likely finished (5) Anxiety: severe also now with grieving from loss of (he Wed night in his sleep at their home) asked psych to re-eval -- they have increased buspar to TID dosing improved anxiety today (6) Acute blood loss anemia: 6 gm drop this admission s/p 1 unit PRBCs improved and stable H/H since then on Fe sulfate 325mg BID (7) Vitamin D deficiency: ergocalciferol 44532 units weekly x 8 weeks received first dose this week (8) Grieving: due to loss of supportive therapy given to patient today appreciate psych consult/recs/support (9) Constipation: cont miralax and senna for bowel maintenance in setting of poor mobility and narcotic use (10) DVT prophylaxis: ferm[place] awaiting auth for [facility] patient is a "target" due to psych history - awaiting completion of that process son updated at bedside Subjective patient's son was at bedside. she was less anxious today than previous. pain in left leg is unchanged. moving bowels. less cough/wheeze. eating well. Review of Systems Constitutional: no fever, no chills, no fatigue and no anorexia Respiratory: + cough; no dyspnea and no dyspnea on exertion Cardiovascular: no chest pain Gastrointestinal: no abdominal pain, no nausea and no vomiting Physical Exam Constitutional: well developed and well nourished; no acute distress and no altered mental status ENMT: external ear and nose normal, oropharynx normal Respiratory: normal respiratory effort, lungs clear to auscultation no respiratory distress Auscultation: + wheezes (much improved today); no rales Cardiovascular: Rate/Rhythm: regular rate and regular rhythm Heart Sounds: normal S1 and normal S2; no murmur Vessels: posterior tibial pulses present and dorsalis pedis pulses present; no JVD Gastrointestinal (Abdomen): normal bowel sounds, soft, nontender, no hepatosplenomegaly Musculoskeletal: Extremities: + lower leg abnormality (immobilizer in place on left ) Psychiatric: Orientation: alert and oriented x 3 Results & Data Vital Signs (Past 12 Hours) Vital Signs Temp Pulse Resp BP BP Pulse Ox 05/02/19 15:06 36.6 C 77 18 118/78 93 05/02/19 12:00 36.5 C 72 18 104/68 94 05/02/19 07:59 74 16 98 05/02/19 07:43 36.7 C 73 16 104/62 98 (1) Femur fracture, left Encounter type: initial encounter Femur location: shaft Fracture alignment: displaced Fracture morphology: comminuted Fracture type: closed Qualified Code(s): S72.352A - Displaced comminuted fracture of shaft of left femur, initial encounter for closed fracture (2) Hepatitis C Viral hepatitis chronicity: chronic Hepatic coma status: without hepatic coma Qualified Code(s): B18.2 - Chronic viral hepatitis C (3) Constipation Constipation type: other constipation type Qualified Code(s): K59.09 - Other constipation
[2019-05-02] MEDS: SENNA 8.6 MG TAB PO SCH (21:07)
[2019-05-03] MEDS: LORazepam 1 MG TAB PO PRN ×5 (01:12→21:48)
[2019-05-03] MEDS: OXYCODONE HCL IR 5 MG TAB (IMMEDIATE RELEASE) PO PRN ×5 (02:48→21:48)
[2019-05-03 07:39] LABS: Albumin Level 2.2 gm/dl (3.4-5.0); BUN Creatinine Ratio 22.6 (10-20); Calcium 8.8 mg/dl (8.5-10.1); Creatinine Clr Calc Pharmacy 90.4 ml/min; Est GFR (Non-African American) 93.1; Potassium 4.6 mmol/L (3.5-5.1)
[2019-05-03 07:53] LABS: Albumin Globulin Ratio 0.5 (0.9-2); Bilirubin,Total 1.3 mg/dl (0.2-1); Globulin 4.5 gm/dl (2.5-4.0); Total Protein 6.7 gm/dl (6.4-8.2)
[2019-05-03] MEDS: FLUTICASONE/SALMETEROL 250/50 (ADVAIR) 14 PUFF/1 INHALER INH SCH ×2 (08:24→21:47)
[2019-05-03] MEDS: FERROUS SULFATE 325 MG TAB PO SCH ×2 (08:24→17:38)
[2019-05-03] MEDS: DOCUSATE SODIUM 100 MG CAP PO SCH ×2 (08:25→21:50)
[2019-05-03] MEDS: IPRATROPIUM BROMIDE/ALBUTEROL respimat INH INH SCH ×4 (08:26→21:46)
[2019-05-03] MEDS: FOLIC ACID 1 MG TAB PO SCH (08:27)
[2019-05-03] MEDS: guaiFENesin 600 MG TABCR PO SCH ×2 (08:28→21:52)
[2019-05-03] MEDS: GABAPENTIN 600 MG TAB PO SCH ×3 (08:28→21:50)
[2019-05-03] MEDS: CEROVITE ADV FORMULA TAB PO SCH (08:28)
[2019-05-03] MEDS: PANTOprazole 40 MG TAB PO SCH (08:29)
[2019-05-03] MEDS: predniSONE 20 MG TAB PO SCH (08:29)
[2019-05-03] MEDS: DOXYCYCLINE HYCLATE 100 MG CAP PO SCH ×2 (08:29→21:51)
[2019-05-03] MEDS: THIAMINE HCL 100 MG TAB PO SCH ×2 (08:30→21:49)
[2019-05-03] MEDS: RIVAROXABAN 10 MG TABLET PO SCH (08:30)
[2019-05-03] MEDS: POLYETHYLENE (MIRALAX) 17 GM PACK PO SCH ×2 (09:31→21:48)
--- NOTE | 2019-05-03 21:31 | Hospitalist Progress Note ---
Date of Service May 03, 2019 Assessment & Plan (1) Femur fracture, left: periprosthetic, pod #7 s/p ORIF by Dr Hernandez. xarelto - DVT proph. pain control - oxycodone 10mg prn. NWB status to LLE. replace low vitamin D. Will need x-rays likely next week - defer to Dr Hernandez. (2) Hepatitis C: no evidence of hepatic encephalopathy. recent LFTs high - likely due to recent alcohol - have improved. needs to abstain from alcohol. repeat LFTs today better. (3) COPD exacerbation: IMPROVED s/p steroids. cont steroids 40mg daily 1 more day then start weaning. cont doxy, nebs, advair, mucinex, incentive spirometry. day #6 of 7 of doxy (4) Alcohol abuse: likely mild etoh withdrawal while here. now resolved. continue gabapentin TID continue ativan prn MVI, thiamine 200 BID, folic acid (5) Anxiety: severe also now with grieving from loss of (he Saturday night in his sleep at their home) asked psych to re-eval -- they have increased buspar to TID dosing ativan prn, but would NOT continue after discharge due to alcohol history (6) Acute blood loss anemia: 6 gm drop this admission s/p 1 unit PRBCs improved and stable H/H since then on Fe sulfate 325mg BID CBC am (7) Vitamin D deficiency: ergocalciferol 58906 units weekly x 8 weeks give on Mondays (8) Grieving: due to loss of supportive therapy given to patient today appreciate psych consult/recs/support (9) Constipation: cont miralax and senna for bowel maintenance in setting of poor mobility and narcotic use (10) DVT prophylaxis: xarelto awaiting auth for [employer] [place] patient is a "target" due to psych history - awaiting completion of that process son updated at bedside this weekend Subjective no new complaints today ongoing anxiety and LLE pain but no changes from yesterday eating well cough/congestion/dyspnea improved asks if I could "increase the pain meds" Review of Systems Constitutional: no fever Respiratory: no dyspnea Cardiovascular: no chest pain Gastrointestinal: no abdominal pain and no constipation Physical Exam Constitutional: well developed and well nourished; no acute distress and no altered mental status best she has looked all week ENMT: external ear and nose normal, oropharynx normal Respiratory: no respiratory distress Auscultation: + wheezes (minimal); no rales Cardiovascular: Rate/Rhythm: regular rate and regular rhythm Heart Sounds: normal S1 and normal S2; no murmur Vessels: posterior tibial pulses present and dorsalis pedis pulses present; no JVD Gastrointestinal (Abdomen): normal bowel sounds, soft, nontender, no hepatosplenomegaly Musculoskeletal: Extremities: + lower leg abnormality (immobilizer in place on left ) Psychiatric: Orientation: alert and oriented x 3 Affect: euthymic affect Results & Data Vital Signs (Past 12 Hours) Vital Signs Temp Pulse Resp BP Pulse Ox 05/03/19 15:36 37.3 C 83 18 150/77 H 95 05/03/19 13:00 37 C 79 18 127/73 93 Laboratory Results Laboratory Results - last 24 hr 05/03/19 06:47 Sodium 141 Potassium 4.6 Chloride 108 H Carbon Dioxide 28 Anion Gap 5.0 BUN 14 Creatinine 0.61 Est Cr Clr Drug Dosing 90.4 Est GFR ( Amer) 108.0 Est GFR (Non-Af Amer) 93.1 BUN/Creatinine Ratio 22.6 H Glucose 166 H Calcium 8.8 Total Bilirubin 1.3 H AST 58 H ALT 42 Alkaline Phosphatase 201 H Total Protein 6.7 Albumin 2.2 L Globulin 4.5 H Albumin/Globulin Ratio 0.5 L TSH 0.780 (1) Hepatitis C Hepatic coma status: without hepatic coma Viral hepatitis chronicity: chronic Qualified Code(s): B18.2 - Chronic viral hepatitis C (2) Femur fracture, left Encounter type: initial encounter Femur location: shaft Fracture alignment: displaced Fracture morphology: comminuted Fracture type: closed Qualified Code(s): S72.352A - Displaced comminuted fracture of shaft of left femur, initial encounter for closed fracture (3) Constipation Constipation type: other constipation type Qualified Code(s): K59.09 - Other constipation
[2019-05-03] MEDS: SENNA 8.6 MG TAB PO SCH (21:51)
[2019-05-04] MEDS: OXYCODONE HCL IR 5 MG TAB (IMMEDIATE RELEASE) PO PRN ×5 (04:20→21:11)
[2019-05-04] MEDS: LORazepam 1 MG TAB PO PRN ×4 (04:20→23:28)
[2019-05-04 06:37] LABS: Hematocrit (blood only) 33.1 % (37-47); Hemoglobin 10.9 g/dL (12.0-16.0); Mean Corpuscular Hgb Conc 32.9 g/dL (32-36); Mean Corpuscular Volume 102.5 fL (80-100); Mean Platelet Volume 9.8 fL (7.4-10.4); Platelet Count 203 K/uL (130-400); RDW Coefficient of Variation 16.5 % (11.5-14.5); RDW Standard Deviation 60.9 fL (36.4-46.3); Red Blood Count 3.23 M/uL (4.2-5.4); White Blood Count 9.16 K/uL (4.8-10.8)
[2019-05-04] MEDS: FLUTICASONE/SALMETEROL 250/50 (ADVAIR) 14 PUFF/1 INHALER INH SCH ×2 (08:30→21:04)
[2019-05-04] MEDS: DOXYCYCLINE HYCLATE 100 MG CAP PO SCH ×2 (08:31→20:49)
[2019-05-04] MEDS: GABAPENTIN 600 MG TAB PO SCH ×3 (08:31→20:48)
[2019-05-04] MEDS: CEROVITE ADV FORMULA TAB PO SCH (08:31)
[2019-05-04] MEDS: FOLIC ACID 1 MG TAB PO SCH (08:31)
[2019-05-04] MEDS: THIAMINE HCL 100 MG TAB PO SCH ×2 (08:32→20:49)
[2019-05-04] MEDS: FERROUS SULFATE 325 MG TAB PO SCH ×2 (08:32→16:56)
[2019-05-04] MEDS: DOCUSATE SODIUM 100 MG CAP PO SCH ×2 (08:32→20:48)
[2019-05-04] MEDS: ERGOCALCIFEROL 50,000 UNITS CAP PO SCH (08:32)
[2019-05-04] MEDS: guaiFENesin 600 MG TABCR PO SCH ×2 (08:33→20:47)
[2019-05-04] MEDS: predniSONE 20 MG TAB PO SCH (08:33)
[2019-05-04] MEDS: IPRATROPIUM BROMIDE/ALBUTEROL respimat INH INH SCH ×5 (08:34→20:44)
[2019-05-04] MEDS: POLYETHYLENE (MIRALAX) 17 GM PACK PO SCH ×2 (08:34→20:50)
[2019-05-04] MEDS: RIVAROXABAN 10 MG TABLET PO SCH (08:35)
--- NOTE | 2019-05-04 14:54 | Hospitalist Progress Note ---
Date of Service May 04, 2019 Assessment & Plan (1) Femur fracture, left: Periprosthetic. S/p ORIF by Dr Hernandez on 04/26. Xarelto - DVT proph. Pain control - oxycodone 10mg prn. NWB status to LLE. replace low vitamin D. Will need x-rays likely next week - defer to Dr Hernandez. (2) COPD exacerbation: COPD exacerbation noted in chart as far back as 04/28; however, the patient did not mention this to me on admission on 04/26. - IMPROVED s/p steroids. - Wean prednisone to 30mg daily on 05/05 - Cont doxy, nebs, Advair, mucinex, incentive spirometry. - Last day of abx is 05/04 (3) Hepatitis C: No evidence of hepatic encephalopathy. Recent LFTs high - likely due to recent alcohol. - Needs to abstain from alcohol. - AST/ALT/alk phos/Tbili were 60/40/200/1.3 on 05/03. - 120/90/270/0.9 on admission - Trend as outpatient (4) Alcohol abuse: Mild etoh withdrawal while admitted. - Now resolved. - Continue gabapentin TID, Ativan prn, MVI, thiamine 200 BID, folic acid (5) Anxiety: Severe. Also now with grieving from loss of (he Saturday night in his sleep at their home). - Evaluated by psych -- increased buspar to TID dosing on 05/02 - Ativan PRN, but would NOT continue after discharge due to alcohol history (6) Acute blood loss anemia: Baseline hgb 14-15. 6 gm drop this admission; down to 9 on 04/29 after surgery. - S/p 1 unit PRBCs on 04/30 & improved and stable H/H since then - Continue Fe sulfate 325mg daily - CBC am (7) Vitamin D deficiency: Vitamind D level was 16. Ergocalciferol 76883 units weekly x 8 weeks. - Give on Mondays (8) Grieving: Due to loss of while she was hospitalized. - Supportive therapy given to patient today - Appreciate psych consult/recs/support (9) Constipation: Cont miralax and senna for bowel maintenance in setting of poor mobility and narcotic use (10) DVT prophylaxis: Xarelto Subjective No major issues today. Continues to have significant grief for her . Significant pain and anxiety. Review of Systems Review of Systems: All systems reviewed & are unremarkable except as noted in HPI & below Physical Exam Constitutional: well developed and well nourished; no altered mental status ENMT: external ear and nose normal, oropharynx normal Respiratory: normal respiratory effort, lungs clear to auscultation no respiratory distress Auscultation: + wheezes (minimal); no rales Cardiovascular: Rate/Rhythm: regular rate and regular rhythm Heart Sounds: normal S1 and normal S2; no murmur Vessels: posterior tibial pulses present and dorsalis pedis pulses present; no JVD Gastrointestinal (Abdomen): normal bowel sounds, soft, nontender, no hepatosplenomegaly Inspection/Auscultation: + abdomen distended (mild) Musculoskeletal: Extremities: + lower leg abnormality (immobilizer in place on left ) Psychiatric: Orientation: alert and oriented x 3 Affect: euthymic affect Results & Data Vital Signs (Past 12 Hours) Vital Signs Temp Pulse Resp BP Pulse Ox 05/04/19 08:18 36.9 C 72 20 150/84 H 95 (1) Femur fracture, left Encounter type: initial encounter Femur location: shaft Fracture alignment: displaced Fracture morphology: comminuted Fracture type: closed Qualified Code(s): S72.352A - Displaced comminuted fracture of shaft of left femur, initial encounter for closed fracture (2) Hepatitis C Viral hepatitis chronicity: chronic Hepatic coma status: without hepatic coma Qualified Code(s): B18.2 - Chronic viral hepatitis C (3) Constipation Constipation type: other constipation type Qualified Code(s): K59.09 - Other constipation
--- NOTE | 2019-05-04 16:03 | XRay Report ---
XR knee LT 2V routine HISTORY: 68 years-old Female post left knee arthroplasty COMPARISON: Fluoroscopic images of the left femur 2018, left femur radiographs 04/26/2019 TECHNIQUE: 2 views of the left knee FINDINGS: Comminuted fracture deformity of the distal femoral diaphysis and metadiaphysis redemonstrated with d isplaced fracture fragments. Left knee total joint arthroplasty. Elongated medullary justino about the fe mur has been placed. Mild persistent apex angulation of the fracture fragments. Anterior midline skin christiano are noted. Expected postsurgical soft tissue swelling with deep tissue air. IMPRESSION: Left knee total joint arthroplasty revision with comminuted fracture deformity of the dis eli femur as above. Please see operative report for further details. The above report was generated using voice recognition software. It may contain grammatical, syntax o r spelling errors. Electronically signed by: Andrew Raman M.D. 05/04/2019 4:01 PM
[2019-05-04] MEDS: SENNA 8.6 MG TAB PO SCH (20:49)
[2019-05-05] MEDS: OXYCODONE HCL IR 5 MG TAB (IMMEDIATE RELEASE) PO PRN ×4 (02:40→19:55)
[2019-05-05] MEDS: LORazepam 1 MG TAB PO PRN (06:25)
[2019-05-05] MEDS: FERROUS SULFATE 325 MG TAB PO SCH (08:32)
[2019-05-05] MEDS: FLUTICASONE/SALMETEROL 250/50 (ADVAIR) 14 PUFF/1 INHALER INH SCH ×2 (08:33→19:52)
[2019-05-05] MEDS: DOCUSATE SODIUM 100 MG CAP PO SCH ×2 (08:34→19:55)
[2019-05-05] MEDS: IPRATROPIUM BROMIDE/ALBUTEROL respimat INH INH SCH (08:35)
[2019-05-05] MEDS: FOLIC ACID 1 MG TAB PO SCH (08:37)
[2019-05-05] MEDS: POLYETHYLENE (MIRALAX) 17 GM PACK PO SCH ×2 (08:38→19:54)
[2019-05-05] MEDS: guaiFENesin 600 MG TABCR PO SCH (08:38)
[2019-05-05] MEDS: CEROVITE ADV FORMULA TAB PO SCH (08:38)
[2019-05-05] MEDS: GABAPENTIN 600 MG TAB PO SCH ×3 (08:38→19:55)
[2019-05-05] MEDS: THIAMINE HCL 100 MG TAB PO SCH (08:39)
[2019-05-05] MEDS: predniSONE 20 MG TAB PO SCH (08:39)
[2019-05-05] MEDS: DOXYCYCLINE HYCLATE 100 MG CAP PO SCH (08:39)
[2019-05-05] MEDS: RIVAROXABAN 10 MG TABLET PO SCH (08:39)
[2019-05-05] MEDS ORDERED: IPRATROPIUM BROMIDE/ALBUTEROL respimat INH INH PRN (11:00)
--- NOTE | 2019-05-05 15:52 | Hospitalist Progress Note ---
Date of Service May 05, 2019 Assessment & Plan (1) Femur fracture, left: Periprosthetic. S/p ORIF by Dr Hernandez on 04/26. - Xarelto - DVT proph. - Pain control - oxycodone 5mg PRN - Weaning down given procedure was >1 week ago. - NWB status to LLE. - Replace low vitamin D (2) COPD exacerbation: COPD exacerbation noted in chart as far back as 04/28; however, the patient did not mention this to me on admission on 04/26. - Improved s/p steroids. Finished doxycycline on 05/04. - Wean prednisone to 20mg daily on 05/06 - Cont nebs, Advair, & incentive spirometry. (3) Hepatitis C: No evidence of hepatic encephalopathy. Recent LFTs high - likely due to recent alcohol. - Needs to abstain from alcohol. - AST/ALT/alk phos/Tbili were 60/40/200/1.3 on 05/03. - 120/90/270/0.9 on admission - Trend as outpatient (4) Alcohol abuse: Mild EtOH withdrawal while admitted. - Now resolved. - Continue gabapentin TID, Ativan prn (weaning as well), MVI, thiamine & folic acid (5) Anxiety: Severe. Also now with grieving from loss of (he Saturday night in his sleep at their home). - Evaluated by psych -- increased Buspar to TID dosing on 05/02 - Ativan PRN, but would NOT continue after discharge due to alcohol history - Attempting to find a [employer] roller [employer] who could come to visit with patient. (6) Acute blood loss anemia: Baseline hgb 14-15. 6 gm drop this admission; down to 9 on 04/29 after surgery. - S/p 1 unit PRBCs on 04/30 & improved and stable H/H since then - CBC am (7) Vitamin D deficiency: Vitamind D level was 16. Ergocalciferol 49961 units weekly x 8 weeks. - Give on Mondays (8) Grieving: Due to loss of while she was hospitalized. - Supportive therapy given to patient today - Appreciate psych consult/recs/support (9) Constipation: Cont Miralax and senna for bowel maintenance in setting of poor mobility and narcotic use. (10) DVT prophylaxis: Xarelto Subjective Very tearful for me today. Noting that "no one has looked at my leg" but that she does not want anyone to touch it. Denies shortness of breath. Asks for a pa stor, but "not today." Very concerned about leg pain. Review of Systems Review of Systems: All systems reviewed & are unremarkable except as noted in HPI & below Physical Exam Constitutional: WD/WN, vitals as above Eyes: EOM intact bilaterally; no conjunctival abnormality ENMT: external ear and nose normal, oropharynx normal Neck: trachea midline, no thyromegaly normal visual inspection Respiratory: normal respiratory effort, lungs clear to auscultation no respiratory distress Cardiovascular: RRR, no murmur, no edema Gastrointestinal (Abdomen): Inspection/Auscultation: abdomen normal to inspection; abdomen not distended Musculoskeletal: no cyanosis or clubbing, extremities motor strength 5/5 Leg with bruising at surgical site. Skin: no rashes, warm and dry Neurologic: moves all extremities and awake Psychiatric: Orientation: alert, oriented to person and cooperative Results & Data Vital Signs (Past 12 Hours) Vital Signs Temp Pulse Resp BP Pulse Ox 05/05/19 15:43 36.8 C 86 22 164/74 H 99 05/05/19 07:58 36.4 C L 79 20 141/67 H 96 (1) Femur fracture, left Encounter type: initial encounter Femur location: shaft Fracture alignment: displaced Fracture morphology: comminuted Fracture type: closed Qualified Code(s): S72.352A - Displaced comminuted fracture of shaft of left femur, initial encounter for closed fracture (2) Hepatitis C Viral hepatitis chronicity: chronic Hepatic coma status: without hepatic coma Qualified Code(s): B18.2 - Chronic viral hepatitis C (3) Constipation Constipation type: other constipation type Qualified Code(s): K59.09 - Other constipation
[2019-05-05] MEDS: LORazepam 0.5 MG TAB PO PRN ×2 (16:34→22:45)
[2019-05-05] MEDS: SENNA 8.6 MG TAB PO SCH (19:55)
[2019-05-06] MEDS: OXYCODONE HCL IR 5 MG TAB (IMMEDIATE RELEASE) PO PRN ×3 (04:14→18:20)
[2019-05-06 06:42] LABS: Hematocrit (blood only) 33.8 % (37-47); Hemoglobin 11.3 g/dL (12.0-16.0); Mean Corpuscular Hgb Conc 33.4 g/dL (32-36); Mean Corpuscular Volume 101.5 fL (80-100); Mean Platelet Volume 9.3 fL (7.4-10.4); Platelet Count 224 K/uL (130-400); RDW Coefficient of Variation 16.4 % (11.5-14.5); RDW Standard Deviation 60.2 fL (36.4-46.3); Red Blood Count 3.33 M/uL (4.2-5.4); White Blood Count 9.11 K/uL (4.8-10.8)
[2019-05-06 07:19] LABS: BUN Creatinine Ratio 20.9 (10-20); Calcium 8.9 mg/dl (8.5-10.1); Creatinine Clr Calc Pharmacy 100.3 ml/min; Est GFR (African American) 111.7; Est GFR (Non-African American) 96.4; Magnesium 2.2 mg/dl (1.8-2.4); Potassium 3.9 mmol/L (3.5-5.1)
[2019-05-06] MEDS: LORazepam 0.5 MG TAB PO PRN ×3 (07:33→20:34)
[2019-05-06] MEDS: DOCUSATE SODIUM 100 MG CAP PO SCH ×2 (07:33→20:30)
[2019-05-06] MEDS: FLUTICASONE/SALMETEROL 250/50 (ADVAIR) 14 PUFF/1 INHALER INH SCH ×2 (07:33→20:29)
[2019-05-06] MEDS: GABAPENTIN 600 MG TAB PO SCH ×3 (07:34→20:31)
[2019-05-06] MEDS: CEROVITE ADV FORMULA TAB PO SCH (07:34)
[2019-05-06] MEDS: RIVAROXABAN 10 MG TABLET PO SCH (07:35)
[2019-05-06] MEDS: THIAMINE HCL 100 MG TAB PO SCH (07:35)
[2019-05-06] MEDS: predniSONE 20 MG TAB PO SCH (07:35)
[2019-05-06] MEDS: FOLIC ACID 1 MG TAB PO SCH (07:36)
[2019-05-06] MEDS: POLYETHYLENE (MIRALAX) 17 GM PACK PO SCH ×2 (07:36→20:44)
--- NOTE | 2019-05-06 15:13 | Hospitalist Progress Note ---
Date of Service May 06, 2019 Assessment & Plan (1) Femur fracture, left: Periprosthetic. S/p ORIF by Dr. Hernandez on 04/26. - Xarelto - DVT proph. - Pain control - oxycodone 5mg PRN - Weaning down given procedure was >1 week ago. - Non-weightbearing to left leg for at least 6 weeks. - Will follow up with Dr. Hernandez in 1 week in his office. - Replace low vitamin D (2) COPD exacerbation: COPD exacerbation noted in chart as far back as 04/28; however, the patient did not mention this to me on admission on 04/26. - Improved s/p steroids. Finished doxycycline on 05/04. - Weaned prednisone to 20mg daily on 05/06 - Cont nebs, Advair, & incentive spirometry. (3) Hepatitis C: No evidence of hepatic encephalopathy. Recent LFTs high - likely due to recent alcohol. - Needs to abstain from alcohol. - AST/ALT/alk phos/Tbili were 60/40/200/1.3 on 05/03. - 120/90/270/0.9 on admission - Trend as outpatient (4) Alcohol abuse: Mild EtOH withdrawal while admitted. - Now resolved. - Continue gabapentin TID, Ativan PRN (weaning as well), MVI, thiamine & folic acid (5) Anxiety: Severe. Also now with grieving from loss of (he Saturday night in his sleep at their home). - Evaluated by psych -- increased Buspar to TID dosing on 05/02 - Ativan PRN, but would NOT continue after discharge due to alcohol history - On 05/05, weaned her Ativan down to 0.5mg PO Q6h PRN (6) Acute blood loss anemia: Baseline hgb 14-15. 6 gm drop this admission; down to 9 on 04/29 after surgery. - S/p 1 unit PRBCs on 04/30 & improved and stable H/H since then (7) Vitamin D deficiency: Vitamin D level was 16 this admission. Ergocalciferol 86267 units weekly x 8 weeks. - Give on Mondays (8) Grieving: Due to loss of while she was hospitalized. - Supportive therapy given to patient today - Appreciate psych consult/recs/support (9) Constipation: Cont Miralax and senna for bowel maintenance in setting of poor mobility and narcotic use. (10) DVT prophylaxis: Marley Subjective Very good spirits today with her son and family around. Report minimal pain. Review of Systems Review of Systems: All systems reviewed & are unremarkable except as noted in HPI & below Physical Exam Constitutional: WD/WN, vitals as above well developed and well nourished; no altered mental status Eyes: EOM intact bilaterally; no conjunctival abnormality ENMT: external ear and nose normal, oropharynx normal Neck: trachea midline, no thyromegaly normal visual inspection Respiratory: normal respiratory effort, lungs clear to auscultation no respiratory distress Auscultation: no rales and no wheezes (minimal) Cardiovascular: RRR, no murmur, no edema Rate/Rhythm: regular rate and regular rhythm Heart Sounds: normal S1 and normal S2; no murmur Vessels: posterior tibial pulses present and dorsalis pedis pulses present; no JVD Gastrointestinal (Abdomen): normal bowel sounds, soft, nontender, no hepatosplenomegaly Inspection/Auscultation: abdomen normal to inspection; abdomen not distended Musculoskeletal: no cyanosis or clubbing, extremities motor strength 5/5 Extremities: + lower leg abnormality (immobilizer in place on left ) Skin: no rashes, warm and dry Neurologic: moves all extremities and awake Psychiatric: Orientation: alert, oriented x 3, oriented to person and cooperative Affect: euthymic affect Results & Data Vital Signs (Past 12 Hours) Vital Signs Temp Pulse Resp BP Pulse Ox 05/06/19 08:19 36.5 C 80 20 162/84 H 99 (1) Femur fracture, left Encounter type: initial encounter Femur location: shaft Fracture alignment: displaced Fracture morphology: comminuted Fracture type: closed Qualified Code(s): S72.352A - Displaced comminuted fracture of shaft of left femur, initi al encounter for closed fracture (2) Hepatitis C Viral hepatitis chronicity: chronic Hepatic coma status: without hepatic coma Qualified Code(s): B18.2 - Chronic viral hepatitis C (3) Constipation Constipation type: other constipation type Qualified Code(s): K59.09 - Other constipation
[2019-05-06] MEDS: SENNA 8.6 MG TAB PO SCH (20:31)
[2019-05-07] MEDS: OXYCODONE HCL IR 5 MG TAB (IMMEDIATE RELEASE) PO PRN ×4 (01:14→21:54)
[2019-05-07] MEDS: ACETAMINOPHEN SOL 650 MG/20.3 ML UDC PO PRN (01:15)
[2019-05-07] MEDS: LORazepam 0.5 MG TAB PO PRN ×3 (03:36→17:21)
[2019-05-07] MEDS: POLYETHYLENE (MIRALAX) 17 GM PACK PO SCH ×2 (08:07→21:40)
[2019-05-07] MEDS: FLUTICASONE/SALMETEROL 250/50 (ADVAIR) 14 PUFF/1 INHALER INH SCH ×2 (08:07→21:41)
[2019-05-07] MEDS: DOCUSATE SODIUM 100 MG CAP PO SCH ×2 (08:07→21:41)
[2019-05-07] MEDS: CEROVITE ADV FORMULA TAB PO SCH (08:08)
[2019-05-07] MEDS: FOLIC ACID 1 MG TAB PO SCH (08:08)
[2019-05-07] MEDS: GABAPENTIN 600 MG TAB PO SCH ×3 (08:08→21:41)
[2019-05-07] MEDS: THIAMINE HCL 100 MG TAB PO SCH (08:08)
[2019-05-07] MEDS: RIVAROXABAN 10 MG TABLET PO SCH (08:08)
[2019-05-07] MEDS: predniSONE 20 MG TAB PO SCH (08:08)
--- NOTE | 2019-05-07 16:29 | Hospitalist Progress Note ---
Date of Service May 07, 2019 Assessment & Plan (1) Femur fracture, left: Periprosthetic. S/p ORIF by Dr. Hernandez on 04/26. - Xarelto - DVT proph. - Pain control - oxycodone 5mg PRN - Weaning down given procedure was >1 week ago. - Non-weightbearing to left leg for at least 6 weeks. - Will follow up with Dr. Hernandez in 1 week in his office. - Replace low vitamin D - Plan for [facility] rehab when able - Pain improving day to day (2) COPD exacerbation: COPD exacerbation noted in chart as far back as 04/28; however, the patient did not mention this to me on admission on 04/26. - Improved s/p steroids. Finished doxycycline on 05/04. - Weaned prednisone to 20mg daily on 05/06 - Cont nebs, Advair, & incentive spirometry. (3) Hepatitis C: No evidence of hepatic encephalopathy. Recent LFTs high - likely due to recent alcohol. - Needs to abstain from alcohol. - AST/ALT/alk phos/Tbili were 60/40/200/1.3 on 05/03. - 120/90/270/0.9 on admission - Trend as outpatient (4) Alcohol abuse: Mild EtOH withdrawal while admitted. - Now resolved. - Continue gabapentin TID, Ativan PRN (weaning as well), MVI, thiamine, & folic acid (5) Anxiety: Severe. Also now with grieving from loss of (he Saturday night in his sleep at their home). - Evaluated by psych -- increased Buspar to TID dosing on 05/02 - Ativan PRN, but would NOT continue after discharge due to alcohol history - On 05/05, weaned her Ativan down to 0.5mg PO Q6h PRN (6) Acute blood loss anemia: Baseline hgb 14-15. 6 gm drop this admission; down to 9 on 04/29 after surgery. - S/p 1 unit PRBCs on 04/30 & improved and stable hgb at 11 since then. (7) Vitamin D deficiency: Vitamin D level was 16 this admission. Ergocalciferol 76632 units weekly x 8 weeks. - Give on Mondays (8) Grieving: Due to loss of while she was hospitalized. - Supportive therapy given to patient today - Appreciate psych consult/recs/support (9) Constipation: Cont Miralax and senna for bowel maintenance in setting of poor mobility and narcotic use. (10) DVT prophylaxis: Xarelto Subjective Feels terrific today. No complaints of pain in the leg. Brushing hair, feels well. Review of Systems Review of Systems: All systems reviewed & are unremarkable except as noted in HPI & below Physical Exam Constitutional: WD/WN, vitals as above well developed and well nourished; no altered mental status Eyes: EOM intact bilaterally; no conjunctival abnormality ENMT: external ear and nose normal, oropharynx normal Neck: trachea midline, no thyromegaly normal visual inspection Respiratory: normal respiratory effort, lungs clear to auscultation no respiratory distress Auscultation: no rales and no wheezes (minimal) Cardiovascular: RRR, no murmur, no edema Rate/Rhythm: regular rate and regular rhythm Heart Sounds: normal S1 and normal S2; no murmur Vessels: posterior tibial pulses present and dorsalis pedis pulses present; no JVD Gastrointestinal (Abdomen): normal bowel sounds, soft, nontender, no hepatosplenomegaly Inspection/Auscultation: abdomen normal to inspection; abdomen not distended Musculoskeletal: no cyanosis or clubbing, extremities motor strength 5/5 Extremities: + lower leg abnormality (immobilizer in place on left ) Skin: no rashes, warm and dry Neurologic: moves all extremities and awake Psychiatric: Orientation: alert, oriented x 3, oriented to person and cooperative Affect: euthymic affect Results & Data Vital Signs (Past 12 Hours) Vital Signs Temp Pulse Pulse Resp BP BP Pulse Ox 05/07/19 15:38 36.8 C 75 16 135/70 97 05/07/19 07:30 36.8 C 70 18 142/77 H 94 05/07/19 04:35 36.8 C 72 16 138/74 93 PG Care Time/CCT Total # of Minutes Spent Total Time Spent with Patient: Total time spent is greater than 50% in coordination of care (as documented) at patient's floor/unit and/or counseling patient: (1) Femur fracture, left Encounter type: initial encounter Femur location: shaft Fracture alignment: displaced Fracture morphology: comminuted Fracture type: closed Qualified Code(s): S72.352A - Displaced comminuted fracture of shaft of left femur, initial encounter for closed fracture (2) Hepatitis C Viral hepatitis chronicity: chronic Hepatic coma status: without hepatic coma Qualified Code(s): B18.2 - Chronic viral hepatitis C (3) Constipation Constipation type: other constipation type Qualified Code(s): K59.09 - Other constipation
[2019-05-07] MEDS: SENNA 8.6 MG TAB PO SCH (21:41)
[2019-05-08] MEDS: OXYCODONE HCL IR 5 MG TAB (IMMEDIATE RELEASE) PO PRN ×3 (05:57→19:14)
[2019-05-08 06:41] LABS: Appearance Urine Turbid (Clear); Bacteria Urine Automated Negative (Negative); Bilirubin Urine Negative (Negative); Blood Urine Negative (Negative); Color Urine Yellow; Epithelial Cell Urine Auto >30 /lpf (0-5); Glucose Urine UA Negative (Negative); Ketones Urine Negative (Negative); Leukocyte Esterase Urine Negative (Negative); Nitrite Urine Negative (Negative); Protein Urine Negative (Negative); RBC Urine Automated 0-4 /hpf (0-4); Specific Gravity Urine 1.012 (1.000-1.030); Urobilinogen Urine Positive (Negative)
[2019-05-08] MEDS: POLYETHYLENE (MIRALAX) 17 GM PACK PO SCH ×2 (08:53→20:00)
[2019-05-08] MEDS: FLUTICASONE/SALMETEROL 250/50 (ADVAIR) 14 PUFF/1 INHALER INH SCH ×2 (09:21→20:01)
[2019-05-08] MEDS: CEROVITE ADV FORMULA TAB PO SCH (09:22)
[2019-05-08] MEDS: DOCUSATE SODIUM 100 MG CAP PO SCH ×2 (09:22→20:00)
[2019-05-08] MEDS: GABAPENTIN 600 MG TAB PO SCH ×3 (09:22→19:59)
[2019-05-08] MEDS: FOLIC ACID 1 MG TAB PO SCH (09:22)
[2019-05-08] MEDS: THIAMINE HCL 100 MG TAB PO SCH (09:23)
[2019-05-08] MEDS: RIVAROXABAN 10 MG TABLET PO SCH (09:23)
[2019-05-08] MEDS: predniSONE 20 MG TAB PO SCH (09:23)
[2019-05-08] MEDS: LORazepam 0.5 MG TAB PO PRN ×3 (09:24→23:08)
[2019-05-08] MEDS: ACETAMINOPHEN SOL 650 MG/20.3 ML UDC PO PRN (09:24)
--- NOTE | 2019-05-08 15:56 | Hospitalist Progress Note ---
Date of Service May 08, 2019 Assessment & Plan (1) Femur fracture, left: Periprosthetic. S/p ORIF by Dr. Hernandez on 04/26. - Xarelto - DVT proph. - Pain control - oxycodone 5mg PRN - Weaning down given procedure was >1 week ago. - Non-weightbearing to left leg for at least 6 weeks. - Will follow up with Dr. Hernandez in 1 week in his office. - Replace low vitamin D - Plan for [facility] rehab when able - Pain improving day to day -> On 05/08, she does not mention pain. (2) COPD exacerbation: COPD exacerbation noted in chart as far back as 04/28; however, the patient did not mention this to me on admission on 04/26. - Improved s/p steroids. Finished doxycycline on 05/04. - Weaned prednisone to 20mg daily on 05/06 - Cont nebs, Advair, & incentive spirometry. (3) Hepatitis C: No evidence of hepatic encephalopathy. Recent LFTs high - likely due to recent alcohol. - Needs to abstain from alcohol. - AST/ALT/alk phos/Tbili were 60/40/200/1.3 on 05/03. - 120/90/270/0.9 on admission - Trend as outpatient (4) Alcohol abuse: Mild EtOH withdrawal while admitted. - Now resolved. - Continue gabapentin TID, Ativan PRN (weaning as well), MVI, thiamine, & folic acid (5) Anxiety: Severe. Also now with grieving from loss of (he Saturday night in his sleep at their home). - Evaluated by psych -- increased Buspar to TID dosing on 05/02 - Ativan PRN, but would NOT continue after discharge due to alcohol history - On 05/05, weaned her Ativan down to 0.5mg PO Q6h PRN (6) Acute blood loss anemia: Baseline hgb 14-15. 6 gm drop this admission; down to 9 on 04/29 after surgery. - S/p 1 unit PRBCs on 04/30 & improved and stable hgb at 11 since then. (7) Vitamin D deficiency: Vitamin D level was 16 this admission. Ergocalciferol 98426 units weekly x 8 weeks. - Give on Mondays (8) Grieving: Due to loss of while she was hospitalized. - Supportive therapy given to patient today - Appreciate psych consult/recs/support (9) Constipation: Cont Miralax and senna for bowel maintenance in setting of poor mobility and narcotic use. (10) DVT prophylaxis: Xarelto Subjective No complaints this afternoon. No major pain in the leg. Review of Systems Review of Systems: All systems reviewed & are unremarkable except as noted in HPI & below Physical Exam Constitutional: WD/WN, vitals as above well developed and well nourished; no altered mental status Eyes: EOM intact bilaterally; no conjunctival abnormality Neck: trachea midline, no thyromegaly normal visual inspection Respiratory: normal respiratory effort, lungs clear to auscultation no resp iratory distress Auscultation: no rales and no wheezes (minimal) Cardiovascular: RRR, no murmur, no edema Rate/Rhythm: regular rate and regular rhythm Heart Sounds: normal S1 and normal S2; no murmur Vessels: no JVD Gastrointestinal (Abdomen): Inspection/Auscultation: abdomen normal to inspection; abdomen not distended Musculoskeletal: no cyanosis or clubbing, extremities motor strength 5/5 Extremities: + lower leg abnormality (immobilizer in place on left ) Skin: no rashes, warm and dry Neurologic: moves all extremities and awake Psychiatric: Orientation: alert, oriented x 3, oriented to person and cooperative Affect: euthymic affect Results & Data Vital Signs (Past 12 Hours) Vital Signs Temp Pulse Resp BP Pulse Ox 05/08/19 15:22 37.1 C 69 16 144/76 H 95 05/08/19 07:49 36.8 C 74 20 125/71 96 PG Care Time/CCT Total # of Minutes Spent Total Time Spent with Patient: Total time spent is greater than 50% in coordination of care (as documented) at patient's floor/unit and/or counseling patient: (1) Femur fracture, left Encounter type: initial encounter Femur location: shaft Fracture alignment: displaced Fracture morphology: comminuted Fracture type: closed Qualified Code(s): S72.352A - Displaced comminuted fracture of shaft of left femur, initial encounter for closed fracture (2) Hepatitis C Viral hepatitis chronicity: chronic Hepatic coma status: without hepatic coma Qualified Code(s): B18.2 - Chronic viral hepatitis C (3) Constipation Constipation type: other constipation type Qualified Code(s): K59.09 - Other constipation
--- NOTE | 2019-05-08 17:41 | Orthopedic Progress Note ---
Date of Service May 08, 2019 Assessment & Plan (1) Femur fracture, left: Overall she continues to improve. We will change the dressing today and leave the incision open to air some. It should make her feel little bit better. I do want her in the knee immobilizer when she is ambulating and when she is sleeping at night. I plan to have the christiano removed on Saturday morning before she is discharged. She can follow-up with orthopedics 2 weeks from Saturday which is about 4 weeks from the day of the procedure. Our office phone number is [phone]. Present on Admission?: Yes Subjective Lida was seen and examined at bedside today. Overall she seems to be doing better. She is been up and ambulating a lot and she is been nonweightbearing on the left leg. Her pain seems better controlled. She still very upset about her . She is planning to be discharged on Saturday. Physical Exam Musculoskeletal: On physical examination of the left knee, the knee immobilizer is in place. Her ligaments are equal. She is active dorsiflexion and plantarflexion of the left ankle. Sensation is intact throughout. Results & Data Vital Signs (Past 12 Hours) Vital Signs Temp Pulse Resp BP Pulse Ox 05/08/19 15:22 37.1 C 69 16 144/76 H 95 05/08/19 07:49 36.8 C 74 20 125/71 96 (1) Femur fracture, left Encounter type: initial encounter Femur location: shaft Fracture alignment: displaced Fracture morphology: comminuted Fracture type: closed Qualified Code(s): S72.352A - Displaced comminuted fracture of shaft of left femur, initial encounter for closed fracture
[2019-05-08] MEDS: SENNA 8.6 MG TAB PO SCH (20:01)
[2019-05-09] MEDS: OXYCODONE HCL IR 5 MG TAB (IMMEDIATE RELEASE) PO PRN ×4 (00:52→21:00)
[2019-05-09] MEDS: LORazepam 0.5 MG TAB PO PRN ×3 (05:03→18:56)
[2019-05-09] MEDS: ACETAMINOPHEN SOL 650 MG/20.3 ML UDC PO PRN ×3 (05:03→18:56)
[2019-05-09] MEDS: FLUTICASONE/SALMETEROL 250/50 (ADVAIR) 14 PUFF/1 INHALER INH SCH ×2 (07:56→20:59)
[2019-05-09] MEDS: DOCUSATE SODIUM 100 MG CAP PO SCH ×2 (07:57→20:59)
[2019-05-09] MEDS: FOLIC ACID 1 MG TAB PO SCH (07:57)
[2019-05-09] MEDS: CEROVITE ADV FORMULA TAB PO SCH (08:00)
[2019-05-09] MEDS: GABAPENTIN 600 MG TAB PO SCH ×3 (08:00→21:00)
[2019-05-09] MEDS: POLYETHYLENE (MIRALAX) 17 GM PACK PO SCH ×2 (08:00→20:59)
[2019-05-09] MEDS: predniSONE 20 MG TAB PO SCH (08:01)
[2019-05-09] MEDS: THIAMINE HCL 100 MG TAB PO SCH (08:01)
[2019-05-09] MEDS: RIVAROXABAN 10 MG TABLET PO SCH (08:02)
--- NOTE | 2019-05-09 15:18 | Hospitalist Progress Note ---
Date of Service May 09, 2019 Assessment & Plan (1) Femur fracture, left: Periprosthetic. S/p ORIF by Dr. Hernandez on 04/26. - Xarelto - DVT proph. - Pain control - oxycodone 5mg PRN - Weaning down given procedure was >1 week ago. - Non-weightbearing to left leg for at least 6 weeks. - Will follow up with Dr. Hernandez in 1 week in his office. - Replace low vitamin D - Plan for [facility] rehab when able - Pain improving day to day -> On 05/09, she does not mention pain. (2) COPD exacerbation: COPD exacerbation noted in chart as far back as 04/28; however, the patient did not mention this to me on admission on 04/26. - Improved s/p steroids. Finished doxycycline on 05/04. - Weaned prednisone to 20mg daily on 05/06 -> Stopped on 05/10 - Cont nebs, Advair, & incentive spirometry. (3) Hepatitis C: No evidence of hepatic encephalopathy. Recent LFTs high - likely due to recent alcohol. - Needs to abstain from alcohol. - AST/ALT/alk phos/Tbili were 60/40/200/1.3 on 05/03. - 120/90/270/0.9 on admission - Trend as outpatient (4) Alcohol abuse: Mild EtOH withdrawal while admitted. - Now resolved. - Continue gabapentin TID, Ativan PRN (weaning as well), MVI, thiamine, & folic acid (5) Anxiety: Severe. Also now with grieving from loss of (he Saturday night in his sleep at their home). - Evaluated by psych -- increased Buspar to TID dosing on 05/02 - Ativan PRN, but would NOT continue after discharge due to alcohol history - On 05/05, weaned her Ativan down to 0.5mg PO Q6h PRN (6) Acute blood loss anemia: Baseline hgb 14-15. 6 gm drop this admission; down to 9 on 04/29 after surgery. - S/p 1 unit PRBCs on 04/30 & improved and stable hgb at 11 since then. (7) Vitamin D deficiency: Vitamin D level was 16 this admission. Ergocalciferol 55349 units weekly x 8 weeks. - Give on Mondays (8) Grieving: Due to loss of while she was hospitalized. - Supportive therapy given to patient today - Appreciate psych consult/recs/support (9) Constipation: Cont Miralax and senna for bowel maintenance in setting of poor mobility and narcotic use. (10) DVT prophylaxis: Xarelto Subjective No pain complaints. Nervous about going to [facility] on Saturday. Review of Systems Review of Systems: All systems reviewed & are unremarkable except as noted in HPI & below Physical Exam Constitutional: WD/WN, vitals as above well developed and well nourished; no altered mental status Eyes: EOM intact bilaterally; no conjunctival abnormality ENMT: external ear and nose normal, oropharynx normal Neck: trachea midline, no thyromegaly normal visual inspection Respiratory: normal respiratory effort, lungs clear to auscultation no respiratory distress Auscultation: no rales and no wheezes (minimal) Cardiovascular: RRR, no murmur, no edema Rate/Rhythm: regular rate and regular rhythm Heart Sounds: normal S1 and normal S2; no murmur Vessels: no JVD Gastrointestinal (Abdomen): normal bowel sounds, soft, nontender, no hepatosp lenomegaly Inspection/Auscultation: abdomen normal to inspection; abdomen not distended Musculoskeletal: no cyanosis or clubbing, extremities motor strength 5/5 Extremities: + lower leg abnormality (immobilizer in place on left ) Skin: no rashes, warm and dry Neurologic: moves all extremities and awake Psychiatric: Orientation: alert, oriented x 3, oriented to person and coop erative Affect: euthymic affect Results & Data Vital Signs (Past 12 Hours) Vital Signs Temp Pulse Resp BP Pulse Ox 05/09/19 07:53 36.5 C 75 18 167/85 H 99 PG Care Time/CCT Total # of Minutes Spent Total Time Spent with Patient: Total time spent is greater than 50% in coordination of care (as documented) at patient's floor/unit and/or counseling patient: (1) Femur fracture, left Encounter type: initial encounter Femur location: shaft Fracture alignment: displaced Fracture morphology: comminuted Fracture type: closed Qualified Code(s): S72.352A - Displaced comminuted fracture of shaft of left femur, initial encounter for closed fracture (2) Hepatitis C Viral hepatitis chronicity: chronic Hepatic coma status: without hepatic coma Qualified Code(s): B18.2 - Chronic viral hepatitis C (3) Constipation Constipation type: other constipation type Qualified Code(s): K59.09 - Other constipation
[2019-05-09] MEDS: SENNA 8.6 MG TAB PO SCH (20:59)
[2019-05-10] MEDS: OXYCODONE HCL IR 5 MG TAB (IMMEDIATE RELEASE) PO PRN ×3 (06:46→19:02)
[2019-05-10] MEDS: LORazepam 0.5 MG TAB PO PRN ×3 (06:46→19:02)
[2019-05-10] MEDS: FLUTICASONE/SALMETEROL 250/50 (ADVAIR) 14 PUFF/1 INHALER INH SCH ×2 (08:50→21:03)
[2019-05-10] MEDS: GABAPENTIN 600 MG TAB PO SCH ×3 (08:51→21:03)
[2019-05-10] MEDS: RIVAROXABAN 10 MG TABLET PO SCH (08:51)
[2019-05-10] MEDS: CEROVITE ADV FORMULA TAB PO SCH (08:52)
[2019-05-10] MEDS: POLYETHYLENE (MIRALAX) 17 GM PACK PO SCH ×2 (08:52→15:46)
[2019-05-10] MEDS: THIAMINE HCL 100 MG TAB PO SCH (08:52)
[2019-05-10] MEDS: FOLIC ACID 1 MG TAB PO SCH (08:52)
[2019-05-10] MEDS: DOCUSATE SODIUM 100 MG CAP PO SCH ×2 (08:53→15:46)
--- NOTE | 2019-05-10 10:50 | Orthopedic Progress Note ---
Date of Service May 10, 2019 Assessment & Plan (1) Femur fracture, left: Overall she is doing about as well as expected. She is planning to go to [facility] tomorrow. I asked the nursing staff to remove the christiano today and put in an order for that. She is going to stay on the Xarelto for DVT prophylaxis. I will see her in the office in 2 weeks from tomorrow. She can call and make an appointment for a time that works well for her and [facility]. Our office phone number is [phone]. She will be nonweightbearing for at least 6 weeks from the day of injury. Present on Admission?: Yes Subjective Lida was seen and examined at bedside this morning. Overall she is doing okay. She is been slowly getting around with physical therapy but she understands she needs to be nonweightbearing on her left leg. She was happy to have her dressing changed and she recently had her knee immobilizer repositioned. She has no new complaints. Physical Exam Musculoskeletal: On physical examination of the left knee, the knee immobilizer is in place. Her leg lengths are equal. She has active motion of her left ankle. Sensations intact. Results & Data Vital Signs (Past 12 Hours) Vital Signs Temp Pulse Resp BP Pulse Ox 05/10/19 06:58 37.0 C 73 18 178/90 H 95 05/09/19 23:35 37 C 92 H 20 152/83 H 96 (1) Femur fracture, left Encounter type: initial encounter Femur location: shaft Fracture alignment: displaced Fracture morphology: comminuted Fracture type: closed Qualified Code(s): S72.352A - Displaced comminuted fracture of shaft of left femur, initial encounter for closed fracture
--- NOTE | 2019-05-10 13:14 | Hospitalist Progress Note ---
Date of Service May 10, 2019 Assessment & Plan (1) Femur fracture, left: Periprosthetic. S/p ORIF by Dr. Hernandez on 04/26. - Xarelto - DVT proph. - Pain control - oxycodone 5mg PRN - Weaning down given procedure was >1 week ago. - Non-weightbearing to left leg for at least 6 weeks. - Will follow up with Dr. Hernandez in 1 week in his office. - Replace low vitamin D - Plan for [facility] rehab on Saturday. (2) COPD exacerbation: COPD exacerbation noted in chart as far back as 04/28; however, the patient did not mention this to me on admission on 04/26. - Improved s/p steroids. Finished doxycycline on 05/04. - Weaned prednisone to 20mg daily on 05/06 -> Stopped on 05/10 - Cont nebs PRN, Advair, & incentive spirometry -> No complaints of shortness of breath on 05/10 (3) Hepatitis C: No evidence of hepatic encephalopathy. Recent LFTs high - likely due to recent alcohol. - Needs to abstain from alcohol. - AST/ALT/alk phos/Tbili were 60/40/200/1.3 on 05/03. - 120/90/270/0.9 on admission - Trend as outpatient (4) Alcohol abuse: Mild EtOH withdrawal while admitted. - Now resolved. - Continue gabapentin TID, Ativan PRN (weaning as well), MVI, thiamine, & folic acid (5) Anxiety: Severe. Also now with grieving from loss of (he Saturday night (April 29) in his sleep at their home). - Evaluated by psych -- increased Buspar to TID dosing on 05/02 - Ativan PRN, but would NOT continue after discharge due to alcohol history - On 05/05, weaned her Ativan down to 0.5mg PO Q6h PRN -> Taking it as often as possible. (6) Acute blood loss anemia: Baseline hgb 14-15. 6 gm drop this admission; down to 9 on 04/29 after surgery. - S/p 1 unit PRBCs on 04/30 & improved and stable hgb at 11 since then. (7) Vitamin D deficiency: Vitamin D level was 16 this admission. Ergocalciferol 25432 units weekly x 8 weeks. - Give on Mondays (8) Grieving: Due to loss of while she was hospitalized. - Supportive therapy given to patient today - Appreciate psych consult/recs/support (9) Constipation: Cont Miralax and senna for bowel maintenance in setting of poor mobility and narcotic use. (10) DVT prophylaxis: Marley Rivera Feels nervous about leaving the hospital tomorrow. Reports continued pain in the leg. Review of Systems Review of Systems: All systems reviewed & are unremarkable except as noted in HPI & below Physical Exam Constitutional: WD/WN, vitals as above well developed and well nourished; no altered mental status Eyes: EOM intact bilaterally; no conjunctival abnormality ENMT: external ear and nose normal, oropharynx normal Neck: trachea midline, no thyromegaly normal visual inspection Respiratory: no respiratory distress Auscultation: no rales and no wheezes (minimal) Cardiovascular: RRR, no murmur, no edema Heart Sounds: normal S1 Vessels: no JVD Gastrointestinal (Abdomen): normal bowel sounds, soft, nontender, no hepatosplenomegaly Inspection/Auscultation: abdomen normal to inspection; a bdomen not distended Musculoskeletal: no cyanosis or clubbing, extremities motor strength 5/5 Extremities: + lower leg abnormality (immobilizer in place on left ) Skin: no rashes, warm and dry Neurologic: moves all extremities and awake Psychiatric: Orientation: alert, oriented x 3, oriented to person and cooperative Affect: euthymic affect Results & Data Vital Signs (Past 12 Hours) Vital Signs Temp Pulse Resp BP Pulse Ox 05/10/19 06:58 37.0 C 73 18 178/90 H 95 PG Care Time/CCT Total # of Minutes Spent Total Time Spent with Patient: Total time spent is greater than 50% in coor dination of care (as documented) at patient's floor/unit and/or counseling patient: (1) Femur fracture, left Encounter type: initial encounter Femur location: shaft Fracture alignment: displaced Fracture morphology: comminuted Fracture type: closed Qualified Code(s): S72.352A - Displaced comminuted fracture of shaft of left femur, initial encounter for closed fracture (2) Hepatitis C Viral hepatitis chronicity: chronic Hepatic coma status: without hepatic coma Qualified Code(s): B18.2 - Chronic viral hepatitis C (3) Constipation Constipation type: other constipation type Qualified Code(s): K59.09 - Other constipation
[2019-05-10] MEDS: ACETAMINOPHEN SOL 650 MG/20.3 ML UDC PO PRN ×2 (15:42→23:37)
[2019-05-10] MEDS: SENNA 8.6 MG TAB PO SCH (15:47)
[2019-05-11] MEDS: OXYCODONE HCL IR 5 MG TAB (IMMEDIATE RELEASE) PO PRN ×2 (01:19→07:43)
[2019-05-11] MEDS: LORazepam 0.5 MG TAB PO PRN ×2 (05:28→13:00)
[2019-05-11] MEDS: FLUTICASONE/SALMETEROL 250/50 (ADVAIR) 14 PUFF/1 INHALER INH SCH (08:47)
[2019-05-11] MEDS: DOCUSATE SODIUM 100 MG CAP PO SCH (08:48)
[2019-05-11] MEDS: FOLIC ACID 1 MG TAB PO SCH (08:48)
[2019-05-11] MEDS: POLYETHYLENE (MIRALAX) 17 GM PACK PO SCH (08:49)
[2019-05-11] MEDS: CEROVITE ADV FORMULA TAB PO SCH (08:49)
[2019-05-11] MEDS: GABAPENTIN 600 MG TAB PO SCH ×2 (08:49→12:57)
[2019-05-11] MEDS: ERGOCALCIFEROL 50,000 UNITS CAP PO SCH (08:50)
[2019-05-11] MEDS: THIAMINE HCL 100 MG TAB PO SCH (08:50)
[2019-05-11] MEDS: RIVAROXABAN 10 MG TABLET PO SCH (08:51)
[2019-05-11] MEDS ORDERED: OXYCODONE HCL IR 5 MG TAB (IMMEDIATE RELEASE) PO PRN (11:13)
--- NOTE | 2019-05-11 11:35 | Discharge Summary ---
Date of Service May 11, 2019 Admission HPI Per Admitting Provider The patient presents to the emergency department via EMS after a history of falling several times, she developed worsening pain in her left leg and hip area, that was somewhat masked by her daily intoxication. Primary Care Provider: Marcelo Edward MD Patient is a 60-year-old female with a past medical history including depression, alcohol abuse, suicidal ideation, syncope, hepatitis C who presents to the emergency department with severe left hip pain, underwent appropriate work-up including x-rays, which shows a closed left femur fracture and was referred for evaluation for admission Principal Diagnosis Left femur fracture Discharge Exam Constitutional WD/WN, vitals as above + obese Eyes PERRL, conjunctivae normal, anicteric sclerae ENMT external ear and nose normal, oropharynx normal Neck trachea midline, no thyromegaly Respiratory normal respiratory effort; no labored breathing and no cough Auscultation: + wheezes (A few scattered expiratory wheezes bilaterally); no crackles and no rhonchi Cardiovascular RRR, no murmur, no edema Gastrointestinal (Abdomen) normal bowel sounds, soft, nontender, no hepatosplenomegaly Musculoskeletal Extremities: + extremities abnormal to inspection (Left distal femur and knee with incision in place with mild surrounding erythema and scant amount of bloody drainage at the distal portion), no cyanosis and no clubbing Skin no rashes, warm and dry Neurologic moves all extremities and awake; no focal motor deficits Psychiatric Orientation: alert and oriented x 3 Eye Contact: good eye contact Affect: + anxious affect Mood: + anxious mood Discharge Data Allergies Allergy/AdvReac Type Severity Reaction Status Date / Time rofecoxib Allergy Intermediate HIVES Verified 04/26/19 04:29 methylprednisolone Allergy Mild Itchiness Verified 04/26/19 04:29 aspirin AdvReac Mild AGITATED Verified 04/26/19 04:29 AND SWEATY celecoxib AdvReac Mild HEAD PAIN Verified 04/26/19 04:29 Consultations 04/26/19 04:06 Consult Orthopedic Surgery Routine 04/28/19 13:35 Consult Psychiatry Routine Procedures Performed Operation Date: 04/26/19 09:30 Actual Procedures p Intermedullary Nailing Left Distal Femur Fracture(Left) - Brady Hernandez, Ordered Studies 04/26/19 02:16 CT cervical spine wo con Urgent CT head/brain wo con Urgent 04/26/19 08:50 FL femur LT 2V Routine FL fluoroscopy <1hr Routine Knee x-ray Femur x-ray Pelvis x-ray Chest x-ray Tibia/fibula x-ray Femur x-ray Hospital Course (1) Femur fracture, left: Periprosthetic. S/p ORIF by Dr. Hernandez on 04/26. - Xarelto - DVT proph x6 weeks. - Pain control - oxycodone 5-10 mg every 4 to 6 hours PRN - Non-weightbearing to left leg for at least 6 weeks. - Will follow up with Dr. Hernandez in 1 week in his office. - Replace low vitamin D - Plan for [facility] rehab today (2) COPD exacerbation: COPD exacerbation - Improved s/p steroids. Finished doxycycline on 05/04. - Weaned prednisone to 20mg daily on 05/06 -> Stopped on 05/10 - Cont Combivent PRN, Advair, & incentive spirometry -Encouraged continued smoking cessation -Added nicotine patch 21 mg which may also help with some of her anxiety (3) Hepatitis C: No evidence of hepatic encephalopathy. Recent LFTs high - likely due to recent alcohol. - Needs to abstain from alcohol. - AST/ALT/alk phos/Tbili were 60/40/200/1.3 on 05/03. - 120/90/270/0.9 on admission - Trend as outpatient -Should follow-up with gastroenterology as an outpatient (4) Alcohol abuse: Mild EtOH withdrawal while admitted. - Now resolved. - Continue gabapentin TID which she was on previous to admission, Ativan PRN (weaning as well), MVI, thiamine, & folic acid -Encouraged continued cessation from alcohol use after discharge (5) Anxiety: Severe. Also now with grieving from loss of (he Saturday night (April 29) in his sleep at their home while the patient was admitted to the hospital). Psychiatric evaluation states that patient has been given a previous diagnosis of bipolar 2 disorder and was treated with multiple medications in the past; she is also had at least 2 inpatient psychiatric admissions in the past - Evaluated by psych -- increased Buspar to TID dosing on 05/02 - Ativan PRN, but would NOT continue after discharge from rehab facility due to alcohol history - On 05/05, weaned her Ativan down to 0.5mg PO Q6h PRN -> she is taking it as often as possible. -Recommend follow-up with psychiatry at rehab facility (6) Acute blood loss anemia: Baseline hgb 14-15. 6 gm drop this admission; down to 9 on 04/29 after surgery. - S/p 1 unit PRBCs on 04/30 & improved and stable hgb at 11 since then. (7) Vitamin D deficiency: Vitamin D level was 16 this admission. Ergocalciferol 23061 units weekly x 8 weeks. - Give on Mondays (8) Grieving: Due to loss of while she was hospitalized. - Supportive therapy given to patient - Appreciate psych consult/recs/support -Recommend continued grief counseling which she prefers to have through her amish (9) Constipation: Now resolved -Cont Miralax and senna for bowel maintenance in setting of poor mobility and narcotic use. (10) Urinary frequency: Stated on the day of discharge that she has been having urinary frequency for over 1 week. She reports having to urinate every 10 minutes. Denies dysuria or hematuria. She is also complaining of lower abdominal pain in the suprapubic region. A urinalysis with reflex urine culture was sent on the day of discharge -She will be started empirically on a 3-day course of ciprofloxacin 500 mg p.o. twice daily -correction should check on the results of the urine culture in 2 to 3 days (11) DVT prophylaxis: Xarelto x6 weeks Disposition-stable for discharge to nursing facility today Total Time Total Time Spent Total Time Spent (In Minutes): Greater than 30 minutes Total Time Includes: Examination of the Patient, Discharge Planning and Medication Reconciliation Discharge Plan Discharge Items Patient Disposition: Transfer [facility] Fac Reason For Visit: LEFT CLOSED FEMUR FRACTURE Discharge Diagnosis: Intramedullary nail left distal femur Condition: Good Discharge Goals: Decrease discomfort, Improve function and Therapeutic intervention Activity: As commented below Non-emergency contact: Primary Care Provider and Surgeon Call non-emergency contact if: you have any medication questions, your symptoms worsen, your pain is not controlled, your pain is worsening, your pain is unusual for you, your pain is concerning for you, you have a fever, your temperature is above 101, your wound has increased redness and your wound has increased drainage Follow-up/Referrals: Marcelo Edward III, MD [Primary Care Provider] - Brady Hernandez DO [Physician] - Diet: Regular Addtl Provider Instructions: ORTHOPEDIC INSTRUCTIONS Activity Recommendations: Nonweightbearing for at least 6 weeks with the left leg Medications: You will likely be given a narcotic medication for pain control. Take that as needed for the pain. You will be on Xarelto 10 mg daily for 6 weeks from the day of surgery for DVT prophylaxis. Dressing Care: Leave the dressing in the knee immobilizer in place until you follow-up with me in the office in 2 weeks. Showering: Do not shower until you follow-up with me in the office and the dressings have been removed. Things To Watch For: 1. Fever above 102 degrees Fahrenheit. 2. Unusual chest pain or shortness of breath. 3. Call [facility] at with any of the above problems Follow-Up Visit: Follow-up with Dr. Hernandez 2 weeks after your day of surgery. Please call to make an appointment or be sure your rehab facility has made one. If you have any questions call It is also very important that you continue to not smoke or drink alcohol. Because of the urinary symptoms you are having on the day of discharge, urinalysis with culture was sent to the lab and you were started on ciprofloxacin. Please have the nursing facility follow-up on the results of the culture in 2 to 3 days. Please seek out grief counseling either through your amish or a community therapist due to the recent loss of your . Prescriptions: New oxycodone 5 mg Tablet 5 - 10 mg PO Q4H PRN (Reason: pain) Qty: 40 RF: 0 Xarelto 10 mg Tablet 10 mg PO DAILY Qty: 40 RF: 0 lorazepam 0.5 mg tablet 0.5 mg PO Q8H PRN (Reason: anxiety) Qty: 30 RF: 0 ciprofloxacin HCl 500 mg Tablet 500 mg PO BID Qty: 5 RF: 0 Combivent Respimat 20-100 mcg/actuation Mist 1 puff inhalation QID PRN (Reason: shortness of breath or wheezing) Qty: 4 RF: 0 buspirone 5 mg Tablet 10 mg PO TID Qty: 90 RF: 0 fluticasone propion-salmeterol [Advair Diskus] 250-50 mcg/dose Blister With Device 1 puffs inhalation BID Qty: 60 RF: 0 sennosides [Senokot] 8.6 mg Tablet 17.2 mg PO HS Qty: 60 RF: 0 polyethylene glycol 3350 [Miralax] 17 gram Powder In Packet 17 g PO DAILY Qty: 30 RF: 0 nicotine [Nicoderm CQ] 21 mg/24 hr Patch 24 Hour 21 mg transdermal QAM Qty: 14 RF: 0 docusate sodium 100 mg Capsule 100 mg PO BID Qty: 60 RF: 0 thiamine HCl (vitamin B1) [Vitamin B-1] 100 mg Tablet 200 mg PO QAM Qty: 60 RF: 0 folic acid 1 mg Tablet 1 mg PO QAM Qty: 30 RF: 0 ergocalciferol (vitamin D2) [Vitamin D2] 50,000 unit Capsule 50,000 unit PO Mo@0900 Qty: 12 RF: 0 Certavite-Antioxidant 18-400 mg-mcg Tablet 1 tab PO QAM Qty: 30 RF: 0 Continued gabapentin 300 mg capsule 600 mg PO TID RF: 0 Discontinued celecoxib 200 mg capsule 200 mg PO DAILY RF: 0 buspirone 7.5 mg tablet 7.5 mg PO BID RF: 0 Stand-Alone Forms: [facility], Opioid Pain Management Discharge Orders: Discharge Order (Routine); Ordered 04/28/19 Ordered By: Brady Hernandez Skilled Items Patient informed of condition?: Yes DNR: No Discharge Level of Care: Skilled Communicable Disease: No Discharge Prognosis: Improving Admission Data Admit Date/Time: 04/26/19 06:55 Attending Provider: Maria Guadalupe Ray Admit Provider: Brady Hernandez Primary Care Provider: Marcelo Edward III Other Providers: Raciel Fernandes ; Brady Hernandez ; Iglesia Benavidez ; Jennifer Bazan Service: Surgical Services Other Interventions: Discharge Summary Assessment (RN) Last Done: 05/11/19 10:29 Pending Studies at Discharge: No
[2019-05-11] MEDS ORDERED: CIPROFLOXACIN 500 MG TAB PO SCH (12:15)
[2019-05-11] MEDS ORDERED: NICOTINE 21 MG/24 HR TDSY TD SCH (12:15)
[2019-05-11 12:32] LABS: Appearance Urine Turbid (Clear); Bilirubin Urine Negative (Negative); Blood Urine Negative (Negative); Cast Urine Automated 0 /lpf (0-5); Color Urine Dark Yellow; Epithelial Cell Urine Auto >30 /lpf (0-5); Glucose Urine UA Negative (Negative); Ketones Urine Negative (Negative); Leukocyte Esterase Urine Negative (Negative); Nitrite Urine Negative (Negative); Protein Urine Negative (Negative); Specific Gravity Urine 1.015 (1.000-1.030); Urobilinogen Urine Negative (Negative)
[2019-05-11 12:41] LABS: Amorphous Sediment Urine Present (None Prsent); Bacteria Urine Automated 1+ (Negative)
== END 2019-05-11 14:50 | DRG 481 ==
LOC: ED 01:43 → 3E 06:55 → SUATTDRO 06:55 → 3E 07:49
DX: S72.492A Other fracture of lower end of left femur, initial encounter for closed fracture; K59.00 Constipation, unspecified; R45.851 Suicidal ideations; Z79.899 Other long term (current) drug therapy; F43.21 Adjustment disorder with depressed mood; R29.6 Repeated falls; I10 Essential (primary) hypertension; R55 Syncope and collapse; W19.XXXA Unspecified fall, initial encounter; M54.5 Low back pain; E55.9 Vitamin D deficiency, unspecified; D62 Acute posthemorrhagic anemia; Z91.81 History of falling; F17.210 Nicotine dependence, cigarettes, uncomplicated; Z79.01 Long term (current) use of anticoagulants; G89.29 Other chronic pain; F10.239 Alcohol dependence with withdrawal, unspecified; B18.2 Chronic viral hepatitis C; F41.1 Generalized anxiety disorder; M97.12XA Periprosthetic fracture around internal prosthetic left knee joint, initial encounter; F32.9 Major depressive disorder, single episode, unspecified; J44.1 Chronic obstructive pulmonary disease with (acute) exacerbation

== ENCOUNTER 2019-05-15 10:26 | Observation (INO) ==
[2019-05-15] MEDS ORDERED: OXYCODONE/ACETAMINOPHEN 5mg/325mg TAB PO PRN (11:38)
[2019-05-15] MEDS ORDERED: ACETAMINOPHEN W/CODEINE #3 1 TAB PO PRN (11:38)
[2019-05-15] MEDS ORDERED: ONDANSETRON INJ 2 MG/ML 2 ML VIAL IV PRN (11:38)
[2019-05-15] MEDS ORDERED: IPRATROPIUM BROMIDE/ALBUTEROL respimat INH INH PRN (11:55)
[2019-05-15 12:11] LABS: Basophils # (auto) 0.05 K/uL (0-0.2); Basophils % (auto) 0.6 %; Eosinophils # (auto) 0.24 K/uL (0-0.5); Eosinophils % (auto) 2.8 %; Hematocrit (blood only) 37.1 % (37-47); Hemoglobin 12.2 g/dL (12.0-16.0); Immature Granulocytes # (auto) 0.03 K/uL (0.00-0.02); Immature Granulocytes % (auto) 0.3 %; Lymphocytes # (auto) 1.98 K/uL (1.2-3.4); Mean Corpuscular Hgb Conc 32.9 g/dL (32-36); Mean Corpuscular Volume 100.5 fL (80-100); Mean Platelet Volume 9.7 fL (7.4-10.4); Monocytes # (auto) 1.05 K/uL (0.11-0.59); Monocytes % (auto) 12.2 %; Neutrophils # (auto) 5.27 K/uL (1.4-6.5); Neutrophils % (auto) 61.1 %; Platelet Count 286 K/uL (130-400); RDW Coefficient of Variation 14.5 % (11.5-14.5); RDW Standard Deviation 53.7 fL (36.4-46.3); Red Blood Count 3.69 M/uL (4.2-5.4); White Blood Count 8.62 K/uL (4.8-10.8)
[2019-05-15 12:34] LABS: INR 1.4 (0.9-1.1)
[2019-05-15] MEDS: D5W AND 1/2NSS 1,000 ML IV SCH ×2 (12:44→23:32)
[2019-05-15 12:48] LABS: BUN Creatinine Ratio 17.9 (10-20); Est GFR (African American) 107.4; Est GFR (Non-African American) 92.7
--- NOTE | 2019-05-15 13:14 | Hospitalist Consultation ---
Date of Consultation May 15, 2019 Assessment & Plan (1) Closed left femoral fracture: - Admitted under ortho service - Continue xarelto and non-weight bearing status on the left leg x 6 weeks from day of injury - Pain management on board, bowel regimen - PT/OT - Suspected seroma over the left knee as pt was seen in ortho office this morning - Fluid aspirate from ortho office has been sent to the lab, follow results - No WBC, afebrile - non suspected infection but ortho has covered with ancef IV for now - MRSA nasal swab negative - Pt from [facility], to assist with dc planning. (2) Vitamin D deficiency: - Cont supplementation (3) Generalized anxiety disorder: (4) Depression: - Continue lorazepam 0.5 mg Q8H prn anxiety, buspirone 10 mg TID for anxiety and depression. - Likely exacerbated by recent loss of her - spiritual support offered, pt aware of services in the hospital. She plans to follow with her gnosticism for counseling/emotional support - has appointment set up with counseling at [facility] already. (5) Hepatitis C: - HCV last resulted on 05/13/19 elevated [id number] (6) COPD (chronic obstructive pulmonary disease): - Continue Advair, Combivent - Smoking cessation - cont nicotine patch (7) DVT prophylaxis: - xarelto Thank you for involving us in the care of Ms. Cuellar. Please do not hesitate to call with questions or concerns. Medicine will follow along. Supervising Physician Co-Signing Physician Notes The patient was seen and examined by me and I agree with the assessment and plan done by Ana Angel PA-C. She was admitted for treatment of possible left femur surgical site infection. Appropriate medications have been ordered. Lungs are clear. Heart rhythm is regular. Abdomen benign. Extremities reveal no significant edema. She does have some erythema about the left knee surgical site with christiano intact and some serosanguineous drainage noted. Cultures are pending. History of Present Illness Reason for Consultation: Medical management, s/p periprosthetic femur fx ORIF now with seroma vs infection Requesting Physician: Dr. Jimenez Attending Physician: Alexandre Jimenez, DO History of Present Illness This is a 68 yo F with PMHx of depression, alcohol abuse, suicidal ideation, syncope, hepatitis C, vitamin D deficiency, and grieving s/p loss of her who presents after recent discharge from the hospital for left periprosthetic femur ORIF now with infection. Her most recent hospital stay was from 04/26/19- 05/11/19. Dr. Hernandez reported today that there was a seroma over the surgical site, which was drained in the office earlier this morning. There was not a suspected infection, but fluid has been sent to lab for evaluation. They plan to treat her with IV abx as a precaution now. She has been in [facility] since discharge a few days ago. Pt is non-weight bearing to the left leg for 6 weeks total from the day of injury, and was placed on xarelto for DVT prophylaxis. The medical team is consulted for her other medical comorbidities while she is here under the orthopedic service for observation. Pt reports her pain is a 7.5/10 and is requesting something, last taken acid maker. She reports being compliant with nonweightbearing status. No fever, chills but has had sweats. She is struggling with dealing with of her , but does have counselor set up to see soon. She is also using nicotine patch to avoid smoking. She is requesting ativan for her nerves and has been using this at [facility]. Allergies Allergy/AdvReac Type Severity Reaction Status Date / Time rofecoxib Allergy Intermediate HIVES Verified 04/26/19 04:29 methylprednisolone Allergy Mild Itchiness Verified 04/26/19 04:29 aspirin AdvReac Mild AGITATED Verified 04/26/19 04:29 AND SWEATY celecoxib AdvReac Mild HEAD PAIN Verified 04/26/19 04:29 Home Medications Home Medications Medication Instructions Recorded Confirmed Type gabapentin 600 mg PO TID 04/26/19 04/26/19 History lorazepam 0.5 mg PO Q8H PRN #30 tab 04/28/19 Rx oxycodone 5 - 10 mg PO Q4H PRN #40 tab 04/28/19 Rx rivaroxaban [Xarelto] 10 mg PO DAILY #40 tab 04/28/19 Rx buspirone 10 mg PO TID #90 tab 05/11/19 Rx ciprofloxacin HCl 500 mg PO BID #5 tab 05/11/19 Rx docusate sodium 100 mg PO BID #60 cap 05/11/19 Rx ergocalciferol (vitamin D2) 50,000 unit PO Mo@0900 #12 cap 05/11/19 Rx [Vitamin D2] fluticasone propion-salmeterol 1 puffs INHALATION BID #60 ea 05/11/19 Rx [Advair Diskus] folic acid 1 mg PO QAM #30 tab 05/11/19 Rx ipratropium-albuterol [Combivent 1 puff INHALATION QID PRN #4 gm 05/11/19 Rx Respimat] usnddpkibuto-vmzd-dheyj acid 1 tab PO QAM #30 tab 05/11/19 Rx [Certavite-Antioxidant] nicotine [Nicoderm CQ] 21 mg TRANSDERMAL QAM #14 ea 05/11/19 Rx polyethylene glycol 3350 [Miralax] 17 g PO DAILY #30 ea 05/11/19 Rx sennosides [Senokot] 17.2 mg PO HS #60 tab 05/11/19 Rx thiamine HCl (vitamin B1) [Vitamin 200 mg PO QAM #60 tab 05/11/19 Rx B-1] Patient History Medical History Chronic back pain Depression Hepatitis C (Resolved) Alcohol abuse Closed fracture nasal bone Degenerative disc disease Femur fracture, left Fibromyalgia Fusion of spine Osteoarthritis Radius and ulna distal fracture Surgical History History of total knee replacement Left S/P lumbar fusion S/P wrist surgery Right Social History Preferred Language: Hong Konger Communication Ability: Effective Beliefs That Will Affect Care: None marital status: / Current Living Situation: Alone Current Living Situation Comment: spouse recently passed Feels Safe at Home: Yes Smoking Status: Current some day smoker Tobacco Type: cigarettes Cigarettes Per Day: 1 ppd x since age 16 Second Hand Exposure: No Hx Alcohol Use: Yes Alcohol type: beer Hx Substance Use: Yes substance use type: marijuana Review of Systems Review of Systems: Constitutional: No fever, + sweats, no chills Eyes: No diplopia, no worsening or blurred vision ENT: normal hearing, no trouble swallowing Respiratory: No cough, sputum, dyspnea at rest or on exertion Cardiovascular: No chest pain, tightness or palpitations Abdomen: No pain, nausea, vomiting, diarrhea or constipation Musculoskeletal: + L knee pain, redness and warmth . Otherwise no joint pain, calf pain, swelling Neurologic: No weakness, numbness/tingling, or balance problems Psychiatric: + anxiety and depression Skin: No rash or itch Physical Exam Physical Exam: General: awake, alert, no apparent distress Head: Normocephalic, atraumatic ENT: PERRL, EOMI, no pharyngeal exudate, mucous membranes moist Chest: Clear to auscultation, on room air, no adventitious breath sounds Cardiac: Regular rate and rhythm, no murmur, no JVD, normal peripheral pulses, good capillary refill Abdominal: NABS x 4 quadrants, soft, nontender to palpation, no rebound, guarding or tenderness Extremities: + Left knee incision with minimal surrounding erythema and warmth, + tender to palpation, able to move knee from side to side in bed without significant pain. Otherwise Normal inspection, no peripheral edema or erythema, calfs nontender to palpation Psych: + Mildly depressed mood and anxious, + tearful when talking about her Neuro: AAO x 3, no motor deficits, speech is clear, no peripheral sensory deficits Results & Data Vital Signs (Past 12 Hours) Vital Signs Temp Pulse Resp BP Pulse Ox 05/15/19 11:20 37.0 C 46 L 16 131/75 98 PG Care Time/CCT Total # of Minutes Spent Total Time Spent with Patient: Total time spent is greater than 50% in coordination of care (as documented) at patient's floor/unit and/or counseling patient: (1) Hepatitis C Hepatic coma status: without hepatic coma Viral hepatitis chronicity: chronic Qualified Code(s): B18.2 - Chronic viral hepatitis C (2) COPD (chronic obstructive pulmonary disease) COPD type: unspecified COPD Qualified Code(s): J44.9 - Chronic obstructive pulmonary disease, unspecified
--- NOTE | 2019-05-15 13:21 | XRay Report ---
XR knee LT 2V routine CLINICAL HISTORY: fracture fracture COMPARISON: 05/04/2019 DISCUSSION: Operative findings consistent with a total knee arthroplasty and revision. Comminuted fracture of the distal femoral shaft is again noted. Overall bony alignment is similar. Th ere is no significant Thoracic calcification. There is no evidence for soft tissue swelling. IMPRESSION: Stable exam compared to the prior study. 2. Stable comminuted fracture distal femur with operative changes as noted. 3. No evidence for callus formation or periosteal reaction at the fracture site at this time. The above report was generated using voice recognition software. It may contain grammatical, syntax or spelling errors. Electronically signed by: Nikolas Richter M.D. 05/15/2019 1:20 PM
[2019-05-15] MEDS: OXYCODONE HCL IR 5 MG TAB (IMMEDIATE RELEASE) PO PRN ×3 (14:19→23:31)
[2019-05-15] MEDS: CEFAZOLIN 2000MG 2,000 MG/15 ML SYR IV SCH ×2 (14:19→21:10)
[2019-05-15] MEDS: GABAPENTIN 600 MG TAB PO SCH ×2 (14:19→21:10)
[2019-05-15] MEDS: LORazepam 0.5 MG TAB PO PRN ×2 (15:47→23:31)
--- NOTE | 2019-05-15 17:55 | History & Physical Report ---
Date of Service May 15, 2019 Assessment & Plan (1) Valeria-prosthetic supracondylar fracture of femur: She is currently taking Xarelto and she has had a very comminuted fracture in the area. A postoperative seroma is to be expected. She still having a little bit of drainage from the incision. I placed her on Ancef prophylactically. Her white count is normal and she is afebrile. She does not have any significant increase in pain in the knee. She did have an aspirate drawn in our office by my partner and will see what those results show however I be hesitant to act on those results if she continues to do well clinically. We are going to keep her on Ancef overnight tonight and make sure her pain and anxiety are well controlled. The hospitalist has already been consulted. I appreciate their input. As long as her incision looks okay tomorrow, I plan to send her back to [facility] with oral antibiotics. Present on Admission?: Yes History of Present Illness Primary Care Provider: [facility] Lida is a pleasant 68-year-old female who underwent a left total knee arthroplasty over 10 years ago. She then fell hard on her left knee 3 weeks ago and sustained a left periprosthetic distal femur fracture. She underwent intramedullary nail fixation of the fracture. Postoperatively she was made nonweightbearing and started on Xarelto for DVT prophylaxis. Unfortunately she is had a difficult course with her recovery. She is a heavy drinker and a smoker. Her a week after the procedure. She was then sent to [facility] for rehab. She has been receiving the appropriate counseling and her pain has been relatively well controlled. There were some concerns about some draining from the wound so she was sent to our office this morning. My partner then admitted her at the hospital to our service. Currently she is afebrile and she denies any fevers or chills. She says overall the pain in her knee continues to improve. Allergies Allergy/AdvReac Type Severity Reaction Status Date / Time rofecoxib Allergy Intermediate HIVES Verified 04/26/19 04:29 methylprednisolone Allergy Mild Itchiness Verified 04/26/19 04:29 aspirin AdvReac Mild AGITATED Verified 04/26/19 04:29 AND SWEATY celecoxib AdvReac Mild HEAD PAIN Verified 04/26/19 04:29 Home Medications Home Medications Medication Instructions Recorded Confirmed Type gabapentin 600 mg PO TID 04/26/19 04/26/19 History lorazepam 0.5 mg PO Q8H PRN #30 tab 04/28/19 Rx oxycodone 5 - 10 mg PO Q4H PRN #40 tab 04/28/19 Rx rivaroxaban [Xarelto] 10 mg PO DAILY #40 tab 04/28/19 Rx buspirone 10 mg PO TID #90 tab 05/11/19 Rx ciprofloxacin HCl 500 mg PO BID #5 tab 05/11/19 Rx docusate sodium 100 mg PO BID #60 cap 05/11/19 Rx ergocalciferol (vitamin D2) 50,000 unit PO Mo@0900 #12 cap 05/11/19 Rx [Vitamin D2] fluticasone propion-salmeterol 1 puffs INHALATION BID #60 ea 05/11/19 Rx [Advair Diskus] folic acid 1 mg PO QAM #30 tab 05/11/19 Rx ipratropium-albuterol [Combivent 1 puff INHALATION QID PRN #4 gm 05/11/19 Rx Respimat] hczkvddsgsov-pvgl-nwuek acid 1 tab PO QAM #30 tab 05/11/19 Rx [Certavite-Antioxidant] nicotine [Nicoderm CQ] 21 mg TRANSDERMAL QAM #14 ea 05/11/19 Rx polyethylene glycol 3350 [Miralax] 17 g PO DAILY #30 ea 05/11/19 Rx sennosides [Senokot] 17.2 mg PO HS #60 tab 05/11/19 Rx thiamine HCl (vitamin B1) [Vitamin 200 mg PO QAM #60 tab 05/11/19 Rx B-1] Past Med/Surg History Medical History Chronic back pain Depression Hepatitis C (Resolved) Alcohol abuse Closed fracture nasal bone Degenerative disc disease Femur fracture, left Fibromyalgia Fusion of spine Osteoarthritis Radius and ulna distal fracture Surgical History History of total knee replacement Left S/P lumbar fusion S/P wrist surgery Right Social History Preferred Language: Sammarinese Communication Ability: Effective Beliefs That Will Affect Care: None marital status: / Current Living Situation: Alone Current Living Situation Comment: spouse recently passed Feels Safe at Home: Yes Smoking Status: Current some day smoker Tobacco Type: cigarettes Cigarettes Per Day: 1 ppd x since age 16 Second Hand Exposure: No Hx Alcohol Use: Yes Alcohol type: beer Hx Substance Use: Yes substance use type: marijuana Review of Systems All systems reviewed & are unremarkable except as noted in HPI & below Physical Exam Musculoskeletal: On physical examination of the left knee, the majority incision is well-healed. There is a very small opening in the upper third of the incision. Through this time able to squeeze out a very large seroma. I do not see any signs of purulent discharge. It only seems to be a seroma. After I was done expressing this seroma the drainage seemed to have stopped. We placed some ice on her knee. There is no redness or signs of infection. There does no t appear to be any effusion within the knee joint itself. She is neurovascularly intact. Results & Data Vital Signs (Past 12 Hours) Vital Signs Temp Pulse Resp BP Pulse Ox 05/15/19 15:18 36.8 C 20 137/72 98 05/15/19 11:20 37.0 C 46 L 16 131/75 98 Laboratory Results H & H 05/15/19 Range/Units 11:55 Hgb 12.2 (12.0-16.0) g/dL Hct 37.1 (37-47) % Coagulation 05/15/19 Range/Units 11:55 INR 1.4 H (0.9-1.1) Diagnostic Findings Radiographs obtained of the left knee show the fracture to be in acceptable alignment. Is a severely comminuted fracture. I do not see any further displacement from postoperative films. I do not see any signs of loosening of the prosthesis.
[2019-05-15] MEDS ORDERED: ACETAMINOPHEN SOL 650 MG/20.3 ML UDC PO PRN (19:37)
[2019-05-15] MEDS: DOCUSATE SODIUM 100 MG CAP PO SCH (21:06)
[2019-05-15] MEDS: FLUTICASONE/SALMETEROL 250/50 (ADVAIR) 14 PUFF/1 INHALER INH SCH (21:10)
[2019-05-16] MEDS: CEFAZOLIN 2000MG 2,000 MG/15 ML SYR IV SCH (05:53)
--- NOTE | 2019-05-16 08:36 | Orthopedic Progress Note ---
Date of Service May 16, 2019 Assessment & Plan (1) Valeria-prosthetic supracondylar fracture of femur: Overall her knee is doing a lot better. She did have a seroma postoperatively. She has been on Xarelto 10 mg daily for DVT prophylaxis and, given the comminution and the severity of the fracture, a seroma is not unlikely in this setting. Her white count was normal and she was afebrile throughout her stay thus far. The drainage from the wound has completely stopped over the last 12 hours. She feels more comfortable out of the knee immobilizer. There was an aspiration that was performed in the office by my partner and those results are not back yet. However, aspirations done in the office only 3 weeks out from the surgery may not be highly specific so I would like to continue to treat her clinically. I would like to send her home back to [facility] with prophylactic oral antibiotic. She can wear the knee immobilizer for comfort only. She still to be nonweightbearing on the left knee. We will continue her pain management regimen of oxycodone and Ativan. She can follow-up with orthopedics in 2 weeks. Our office phone number is [phone]. Present on Admission?: Yes Subjective Pending was seen and examined at bedside this morning. Overall she is feeling much better. She says her knee feels much better as well. I think the evacuation of the hematoma at bedside has helped some. She had her incision open to air overnight. It has not drained all night and it is mostly closed up. She was on IV antibiotics overnight and overall the knee looks much better. Physical Exam Musculoskeletal: On physical examination of the left knee, there is no redness or signs of infection at this point. I will see any signs of a joint effusion. The incisions mostly healed. There is no drainage at this time and there has not been drainage for the last 12 hours. Results & Data Vital Signs (Past 12 Hours) Vital Signs Temp Pulse Resp BP Pulse Ox 05/16/19 07:11 36.5 C 85 16 156/65 H 98 05/15/19 23:50 36.7 C 75 16 135/80 95 05/15/19 22:17 36.7 C Laboratory Results H & H 05/15/19 Range/Units 11:55 Hgb 12.2 (12.0-16.0) g/dL Hct 37.1 (37-47) % Coagulation 05/15/19 Range/Units 11:55 INR 1.4 H (0.9-1.1) Diagnostic Findings X-rays of the left knee show a very comminuted periprosthetic left distal femur fracture. The intramedullary nail is in place. I do not see any displacement or signs of hardware failure or complication from the original postoperative x- rays.
[2019-05-16 08:38] LABS: Hematocrit (blood only) 36.1 % (37-47); Hemoglobin 11.8 g/dL (12.0-16.0); Mean Corpuscular Hgb Conc 32.7 g/dL (32-36); Mean Platelet Volume 9.5 fL (7.4-10.4); Platelet Count 246 K/uL (130-400); RDW Coefficient of Variation 14.6 % (11.5-14.5); RDW Standard Deviation 54.5 fL (36.4-46.3); Red Blood Count 3.54 M/uL (4.2-5.4); White Blood Count 5.48 K/uL (4.8-10.8)
--- NOTE | 2019-05-16 08:41 | Discharge Summary ---
Date of Service May 16, 2019 Admission HPI Per Admitting Provider Lida is a pleasant 68-year-old female who underwent a left total knee arthroplasty over 10 years ago. She then fell hard on her left knee 3 weeks ago and sustained a left periprosthetic distal femur fracture. She underwent intramedullary nail fixation of the fracture. Postoperatively she was made nonweightbearing and started on Xarelto for DVT prophylaxis. Unfortunately she is had a difficult course with her recovery. She is a heavy drinker and a smoker. Her a week after the procedure. She was then sent to [facility] for rehab. She has been receiving the appropriate counseling and her pain has been relatively well controlled. There were some concerns about some draining from the wound so she was sent to our office this morning. My partner then admitted her at the hospital to our service. Currently she is afebrile and she denies any fevers or chills. She says overall the pain in her knee continues to improve. Specialty Data Orthopedic Laboratory Results - last 24 hr 05/15/19 05/15/19 05/15/19 11:45 11:55 11:55 WBC 8.62 RBC 3.69 L Hgb 12.2 Hct 37.1 MCV 100.5 H MCH 33.1 MCHC 32.9 RDW Std Deviation 53.7 H RDW Coeff of Jose Luis 14.5 Plt Count 286 MPV 9.7 Immature Gran % (Auto) 0.3 Neut % (Auto) 61.1 Lymph % (Auto) 23.0 [place] % (Auto) 12.2 Eos % (Auto) 2.8 Baso % (Auto) 0.6 Immature Gran # (Auto) 0.03 H Neut # (Auto) 5.27 Lymph # (Auto) 1.98 [place] # (Auto) 1.05 H Eos # (Auto) 0.24 Baso # (Auto) 0.05 PT INR Sodium Potassium Chloride Carbon Dioxide Anion Gap BUN Creatinine Est Cr Clr Drug Dosing Est GFR ( Amer) Est GFR (Non-Af Amer) BUN/Creatinine Ratio Glucose Calcium Magnesium Nasal Screen MRSA (PCR) Negative Blood Type O Positive Antibody Screen NEGATIVE 05/15/19 05/15/19 05/16/19 11:55 11:55 08:29 WBC Pending RBC Pending Hgb Pending Hct Pending MCV Pending MCH Pending MCHC Pending RDW Std Deviation RDW Coeff of Jose Luis Plt Count Pending MPV Immature Gran % (Auto) Neut % (Auto) Lymph % (Auto) [place] % (Auto) Eos % (Auto) Baso % (Auto) Immature Gran # (Auto) Neut # (Auto) Lymph # (Auto) [place] # (Auto) Eos # (Auto) Baso # (Auto) PT 14.0 H INR 1.4 H Sodium Potassium Chloride Carbon Dioxide Anion Gap BUN 11 Creatinine 0.62 Est Cr Clr Drug Dosing 79.0 Est GFR ( Amer) 107.4 Est GFR (Non-Af Amer) 92.7 BUN/Creatinine Ratio 17.9 Glucose Calcium Magnesium Nasal Screen MRSA (PCR) Blood Type Antibody Screen 05/16/19 08:29 WBC RBC Hgb Hct MCV MCH MCHC RDW Std Deviation RDW Coeff of Jose Luis Plt Count MPV Immature Gran % (Auto) Neut % (Auto) Lymph % (Auto) [place] % (Auto) Eos % (Auto) Baso % (Auto) Immature Gran # (Auto) Neut # (Auto) Lymph # (Auto) [place] # (Auto) Eos # (Auto) Baso # (Auto) PT INR Sodium Pending Potassium Pending Chloride Pending Carbon Dioxide Pending Anion Gap Pending BUN Pending Creatinine Pending Est Cr Clr Drug Dosing Pending Est GFR ( Amer) Pending Est GFR (Non-Af Amer) Pending BUN/Creatinine Ratio Pending Glucose Pending Calcium Pending Magnesium Pending Nasal Screen MRSA (PCR) Blood Type Antibody Screen Discharge Data Consultations 05/15/19 11:43 Consult Internal Medicine Routine Hospital Course (1) Valeria-prosthetic supracondylar fracture of femur: On May 15, 2000 0.19 was sent over from our office with a seroma and questionable infection of her left knee. She underwent an intramedullary nail fixation for periprosthetic distal femur fracture 3 weeks ago. Unfortunately her postoperative course has been complicated by psychiatric issues as well as the of her 2 weeks ago. She was discharged to [facility] week. [facility] called her office yesterday with concerns that she was being noncompliant with her knee immobilizer and concerns of some draining from the incision site. She was sent over to our office. My partner did an aspiration and admitted her over at the hospital with concerns for a postoperative seroma and possible infection. She had a white count which was negative and she was afebrile. I saw her at bedside and she had a small opening in the midportion of her incision. I was able to manually evacuate a very large seroma at bedside. I do not see any signs of infection during the evacuation. After the cerumen was evacuated I placed her on IV Ancef. I left the incision open to air. She was also consulted by the hospitalist. Overnight her incision did not drain at all. It seems to be healing nicely. I do not see any signs of infection around her knee at this point. She continued to remain afebrile. I decided to send her back to [facility] with new restrictions of the knee immobilizer for comfort only. She can leave the incision open to air unless it straining then she can cover it with dry dressing changes daily. If it continues to drain for a couple days then I think it would be reasonable to take her to the operating room for an I&D of the left knee. However, if her knee continues to look well and she does well on the oral antibiotics that I do not think an I&D of the knee will be necessary. I will see her in the office in 2 weeks unless the drainage continues, then I will see her earlier. Discharge Instructions Home Medications Medication Instructions Recorded Confirmed gabapentin 600 mg PO TID 04/26/19 04/26/19 Previous Rx's Medication Instructions Recorded lorazepam 0.5 mg PO Q8H PRN #30 tab 04/28/19 oxycodone 5 - 10 mg PO Q4H PRN #40 tab 04/28/19 rivaroxaban [Xarelto] 10 mg PO DAILY #40 tab 04/28/19 buspirone 10 mg PO TID #90 tab 05/11/19 ciprofloxacin HCl 500 mg PO BID #5 tab 05/11/19 docusate sodium 100 mg PO BID #60 cap 05/11/19 ergocalciferol (vitamin D2) 50,000 unit PO Mo@0900 #12 cap 05/11/19 [Vitamin D2] fluticasone propion-salmeterol 1 puffs INHALATION BID #60 ea 05/11/19 [Advair Diskus] folic acid 1 mg PO QAM #30 tab 05/11/19 ipratropium-albuterol [Combivent 1 puff INHALATION QID PRN #4 gm 05/11/19 Respimat] nkpsmtpkexih-twcf-kylbf acid 1 tab PO QAM #30 tab 05/11/19 [Certavite-Antioxidant] nicotine [Nicoderm CQ] 21 mg TRANSDERMAL QAM #14 ea 05/11/19 polyethylene glycol 3350 [Miralax] 17 g PO DAILY #30 ea 05/11/19 sennosides [Senokot] 17.2 mg PO HS #60 tab 05/11/19 thiamine HCl (vitamin B1) [Vitamin 200 mg PO QAM #60 tab 05/11/19 B-1] cephalexin [Keflex] 500 mg PO Q6H 10 Days #40 cap 05/16/19
[2019-05-16] MEDS ORDERED: RIVAROXABAN 10 MG TABLET PO SCH (09:00)
[2019-05-16] MEDS ORDERED: NICOTINE 21 MG/24 HR TDSY TD SCH (09:00)
[2019-05-16 09:01] LABS: BUN Creatinine Ratio 13.1 (10-20); Calcium 9.5 mg/dl (8.5-10.1); Creatinine Clr Calc Pharmacy 96.5 ml/min; Est GFR (African American) 110.4; Est GFR (Non-African American) 95.3; Magnesium 2.2 mg/dl (1.8-2.4); Potassium 3.7 mmol/L (3.5-5.1)
[2019-05-16] MEDS: OXYCODONE HCL IR 5 MG TAB (IMMEDIATE RELEASE) PO PRN (09:15)
[2019-05-16] MEDS: LORazepam 0.5 MG TAB PO PRN (09:15)
[2019-05-16] MEDS: GABAPENTIN 600 MG TAB PO SCH (09:16)
[2019-05-16] MEDS: DOCUSATE SODIUM 100 MG CAP PO SCH (09:16)
[2019-05-16] MEDS: FLUTICASONE/SALMETEROL 250/50 (ADVAIR) 14 PUFF/1 INHALER INH SCH (09:16)
[2019-05-16] MEDS: D5W AND 1/2NSS 1,000 ML IV SCH (11:43)
[2019-05-16 12:25] LABS: Appearance Urine Clear (Clear); Bilirubin Urine Negative (Negative); Blood Urine Negative (Negative); Color Urine Dark Yellow; Glucose Urine UA Negative (Negative); Ketones Urine Negative (Negative); Leukocyte Esterase Urine Negative (Negative); Nitrite Urine Negative (Negative); Protein Urine Negative (Negative); Specific Gravity Urine 1.022 (1.000-1.030); Urobilinogen Urine Negative (Negative); pH Urine 6.5 (4.5-7.5)
--- NOTE | 2019-05-16 13:26 | Hospitalist Progress Note ---
Date of Service May 16, 2019 Assessment & Plan (1) Infection of left knee: - S/p fluid aspiration on 05/15; wound culture +Streptococcus species. - Has been afebrile, no leukocytosis noted. - Convert Cefazolin IV to Keflex PO at discharge. - F/u with orthopedics; discharge back to [facility]. (2) Closed left femoral fracture: - S/p intramedullary nailing distal left femur on 04/26/19. - Continue non weightbearing status on left leg x 6 weeks. - Continue Xarelto for DVT ppx. - Discharge back to [facility] today; f/u with ortho as outpatient. (3) Dysuria: - Pt. complains of dysuria, urinary frequency and foul smelling urine; states symptoms started after arriving at [facility]. - UC 05/12 showed 6K colonies gram positive cocci. - Pt. was being treated with Cipro at [facility]; will be discharged with Keflex for coverage of knee infection. - Repeat u/a was negative; consider MRSA coverage for UTI if no improvement in symptoms. (4) Vitamin D deficiency: - Continue home supplementation. (5) Generalized anxiety disorder: - Continue Ativan 0.5 mg q8hr, Buspar 10 mg TID for anxiety. (6) Depression: - Exacerbated by recent loss of ; will f/u with [facility] for counseling/support. (7) Hepatitis C: - HCV last resulted on 05/13/19 elevated =[id number]. (8) COPD (chronic obstructive pulmonary disease): - Continue Advair, Combivent - Nicotine patch. (9) DVT prophylaxis: - Xarelto daily. Dispo: Will sign off, discharge back to [facility]. Supervising Physician Co-Signing Physician Notes Attending Attestation - Chart reviewed, care plan d/w [facility] [place]. I agree w/ the harris components of her documentation. Chronic medical issues are stable. Ortho has chosen keflex to cover the strep that is growing from post-op seroma of left leg. The keflex should cover the GPC that grew in urine. Final culture of left leg is pending and will need to be followed closely post- discharge. Alonso Huynh MD Subjective Pt. states knee pain is well controlled. Erythema resolving. She does complain of dysuria, urinary frequency, foul smelling urine. Symptoms started after presenting to [facility]. Cipro BID was started for empiric coverage. UC from 05/12 +6K colonies gram pos cocci. Repeat U/a was negative this morning. She was converted to Keflex at discharge -- will need MRSA coverage if no improvement in urinary symptoms following discharge to [facility]. Review of Systems Review of Systems: All systems reviewed & are unremarkable except as noted in HPI & below Constitutional: no fever, no chills, no fatigue, no weakness and no anorexia Respiratory: no cough, no dyspnea and no dyspnea on exertion Cardiovascular: no chest pain, no palpitations and no edema Gastrointestinal: no abdominal pain, no nausea, no vomiting and no constipation Genitourinary: + dysuria and + urinary frequency Musculoskeletal: + joint pain; no back pain Integumentary: + wounds and + erythema Allergy / Immunological: no rash Physical Exam Physical Exam: General: Resting comfortably in no apparent distress HEENT: NC/AT; PERRLA with EOMI; [place] conjunctiva, MMM. No erythema of posterior pharynx Neck: Supple and nontender Cardiac: RRR Lungs: CTA bilaterally Abdomen: Bowel normoactive X 4; Nontender to palpation Extremities: Warm. No edema present. +left knee incision with minimal erythema, nontender to palpation. Neuro: No focal weakness Skin: No rash Results & Data Vital Signs (Past 12 Hours) Vital Signs Temp Pulse Pulse Resp BP BP Pulse Ox 05/16/19 10:54 36.5 C 85 46 L 16 156/65 H 137/72 98 05/16/19 07:11 36.5 C 85 16 156/65 H 98 Laboratory Results 05/16/19 05/16/19 05/16/19 Range/Units 12:00 08:29 08:29 WBC 5.48 (4.8-10.8) K/uL RBC 3.54 L (4.2-5.4) M/uL Hgb 11.8 L (12.0-16.0) g/dL Hct 36.1 L (37-47) % MCV 102.0 H (80-100) fL MCH 33.3 (25-34) pg MCHC 32.7 (32-36) g/dL RDW Std Deviation 54.5 H (36.4-46.3) fL RDW Coeff of Jose Luis 14.6 H (11.5-14.5) % Plt Count 246 (130-400) K/uL MPV 9.5 (7.4-10.4) fL Sodium 137 (136-145) mmol/L Potassium 3.7 (3.5-5.1) mmol/L Chloride 103 (98-107) mmol/L Carbon Dioxide 29 (21-32) mmol/L Anion Gap 6.0 (3-11) BUN 8 (7-18) mg/dl Creatinine 0.57 L (0.6-1.2) mg/dl Est Cr Clr Drug Dosing 96.5 ml/min Est GFR ( Amer) 110.4 Est GFR (Non-Af Amer) 95.3 BUN/Creatinine Ratio 13.1 (10-20) Glucose 165 H (70-99) mg/dl Calcium 9.5 (8.5-10.1) mg/dl Magnesium 2.2 (1.8-2.4) mg/dl Urine Color Dark Yellow Urine Appearance Clear (Clear) Urine pH 6.5 (4.5-7.5) Ur Specific [place] 1.022 (1.000-1.030) Urine Protein Negative (Negative) Urine Glucose (UA) Negative (Negative) Urine Ketones Negative (Negative) Urine Blood Negative (Negative) Urine Nitrite Negative (Negative) Urine Bilirubin Negative (Negative) Urine Urobilinogen Negative (Negative) Ur Leukocyte Esterase Negative (Negative) PG Care Time/CCT Total # of Minutes Spent Total Time Spent with Patient: Total time spent is greater than 50% in coordination of care (as documented) at patient's floor/unit and/or counseling patient: (1) Hepatitis C Hepatic coma status: without hepatic coma Viral hepatitis chronicity: chronic Qualified Code(s): B18.2 - Chronic viral hepatitis C (2) COPD (chronic obstructive pulmonary disease) COPD type: unspecified COPD Qualified Code(s): J44.9 - Chronic obstructive pulmonary disease, unspecified
== END 2019-05-16 13:26 ==
LOC: 3W 10:40 → INTOOBSV 10:40
DX: W19.XXXA Unspecified fall, initial encounter; J44.9 Chronic obstructive pulmonary disease, unspecified; F10.10 Alcohol abuse, uncomplicated; M19.90 Unspecified osteoarthritis, unspecified site; S72.92XA Unspecified fracture of left femur, initial encounter for closed fracture; F17.210 Nicotine dependence, cigarettes, uncomplicated; M97.12XA Periprosthetic fracture around internal prosthetic left knee joint, initial encounter; F32.9 Major depressive disorder, single episode, unspecified; S72.492A Other fracture of lower end of left femur, initial encounter for closed fracture; M79.7 Fibromyalgia